=== PATIENT | male | born 1950 | race Caucasian/White ===

== ENCOUNTER 2017-02-17 11:44 | Emergency (ER) | payer BC, OTHER ==
[~2017-02-17] VITALS: Ht 182.9 cm; Wt 93.6 kg
[2017-02-17 11:50] VITALS: TEMP 36.7; Ht 182.9 cm; Wt 93.6 kg
[2017-02-17] MEDS ORDERED: SODIUM CHLORIDE 0.9% 1000ML 1,000 ML IV STA (12:26)
[2017-02-17] MEDS ORDERED: SODIUM CHLORIDE 0.9% 1000ML 1,000 ML IV ONE (12:26)
[2017-02-17] MEDS ORDERED: ASPI81TA28 PO (12:28)
[2017-02-17] MEDS ORDERED: ACT/15 PO (12:28)
[2017-02-17] MEDS ORDERED: GLC500 PO (12:28)
[2017-02-17] MEDS ORDERED: SERT25TA PO (12:28)
[2017-02-17] MEDS ORDERED: LISI-461 PO (12:28)
[2017-02-17] MEDS ORDERED: LPT/40 PO (12:28)
--- NOTE | 2017-02-17 12:32 | EMERGENCY ROOM VISIT NOTE ---
History Report prepared by Celso: Jonas Okeefe Under the Supervision of: Dr. Yfn Soria M.D. First contact with patient: 12:18 Chief Complaint: EYE ASSESSMENT Stated Complaint: DOUBLE VISION,SINUS PRESSURE,NAUSCOUS History of Present Illness The patient is a 66 year old male who presents to the Emergency Room with complaints of constant double vision that started three days ago. He states that he is able to close one eye and see normally. The patient also admits to nausea, vomiting, an intermittent sinus headache, rhinorrhea, and congestion. The patient reports that he also was experiencing an ear pain but it had resolved a couple of days ago. The patient reports that he went to have an eye assessment with an point of care technician in December at [facility]. 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 He states that he has a history of diabetes, which he takes pills for. He states that he checked his blood sugar yesterday which was in the 180s. The patient states that he had lab work done today with [facility] to test for Lyme's disease because his PCP, Dr. Mills, believes he has Lyme's disease. He is accompanied by his who states that he has been taking antibiotics, but has not been able to take his pills due to his vomiting. The patient denies any blood thinners, fevers, chills, shortness of breath, chest pain, abdominal pain, dizziness, numbness, and weakness. Source of History: patient, family, spouse/significant other Onset: three days ago Position: eye (bilateral) Quality: other (double vision) Timing: constant Associated Symptoms: + nausea, + vomiting, No fevers, No chills, No chest pain, No SOB, No abdominal pain, No fatigue, No weakness Review of Systems See HPI for pertinent positives & negatives. A total of 10 systems reviewed and were otherwise negative. Past Medical & Surgical Medical Problems: (1) Diabetes Old medical records were reviewed. Nurse's notes were reviewed and I agree with. Family History Patient reports no known family medical history. Social History Smoking Status: Former Smoker Drug Use: none Marital Status: Housing Status: lives with significant other Occupation Status: retired Current/Historical Medications Scheduled Aspirin (Aspirin Ec), 81 MG PO DAILY Atorvastatin (Lipitor), 40 MG PO DAILY Lisinopril (Zestril), 10 MG PO DAILY Metformin HCl (Metformin HCl), 1,000 MG PO BID Pioglitazone Hcl (Actos), Unknown Dose PO DAILY Sertraline (Zoloft), 75 MG PO HS Allergies Coded Allergies: No Known Allergies (Unverified , 02/17/17) Physical Exam Vital Signs Date Time Temp Pulse Resp B/P (MAP) Pulse Ox O2 Delivery O2 Flow Rate FiO2 02/17/17 14:38 78 18 148/72 99 02/17/17 13:48 88 22 160/84 98 Room Air 02/17/17 12:54 73 20 135/72 96 Room Air 02/17/17 12:26 75 02/17/17 11:50 36.7 93 19 145/77 95 Room Air Physical Exam General: Well developed well nourished non ill appearing middle aged man in no acute distress, breathing comfortably on room air. Normal speech HEENT: Normal cephalic atraumatic. Pupils are equal round and reactive to light. Extraocular movements are intact and moving all directions other the tracking seems slightly asymmetrical. Oropharynx is pink with moist mucous membranes. No swelling of the mouth lips or tongue. Normal tympanic membrane. Neck: Supple with a midline trachea. No meningeal signs or stiffness, no JVD or bruits. No Stridor. Chest: Clear to auscultation bilaterally. No wheezes or rhonchi. No increased work of breathing. Heart: regular rate and rhythm. Abdomen: Soft nontender, nondistended without rebound guarding or rigidity. Extremities: No cyanosis clubbing or edema. No calf tenderness or assymetry Spine/Back. Non tender to palpation. No CVA tenderness Skin: Good turgor without rashes. Neurologic exam: Finger to nose intact. Cranial nerves two through 12 are intact. Motor and sensation are intact and symmetrical throughout. Medical Decision & Procedures ER Provider Diagnostic Interpretation: Radiology results as stated below per my review and radiologist interpretation: CHEST ONE VIEW PORTABLE HISTORY:66 yearsMaleCHEST PAIN COMPARISON: None available. TECHNIQUE: Portable upright AP view of the chest. FINDINGS: The lungs are somewhat hypoinflated which accentuates the size of the cardiac silhouette. There is bronchovascular crowding with hazy subsegmental bibasilar opacities. No pneumothorax or large pleural effusion. The bones are grossly intact. IMPRESSION: Hypoinflation with bronchovascular crowding. Bibasilar opacities suggest atelectasis with pneumonia thought to be less likely. The above report was generated using voice recognition software. It may contain grammatical, syntax or spelling errors. Electronically signed by: Torsten Azevedo M.D. 02/17/2017 12:58 PM Dictated Date/Time: 02/17/2017 12:[address] CT DOSE: HISTORY: Mental status change. Visual change. eval for blurry vision TECHNIQUE: Multiaxial CT images of the head were performed without the use of intravenous contrast. Comparison: None. Findings: Expansile/destructive mass base of the brain on the left possibly originating from the posterior left nasopharynx with destructive changes involving the base of the skull on the left as well as clivus. Exact dimensions are difficult to ascertain based on CT criteria. Transaxial measurements at the base of the CT of the brain approximate 3.5 x 2.0 cm. The remainder of the brain is remarkable for minimal age-related atrophy. The remainder of the skull is considered unremarkable. The calvarium is intact. The ventricles and sulci are within normal limits. There is no mass, hematoma, midline shift, or acute infarct. Impression: 1. 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 2. Neoplastic processes diagnosis of exclusion area 3. Remainder of the brain is negative Electronically signed by: Deandre Robledo M.D. 02/17/2017 1:35 PM Dictated Date/Time: 02/17/2017 1:[address] DOSE: HISTORY: Sinus disease eval for sinus disease TECHNIQUE: Multiaxial CT images of the paranasal sinuses were performed and reformatted in the coronal plane without the use of contrast. COMPARISON: None. Findings: Large mass base of the brain on the left extending into the left sphenoid sinus and posterior nasopharynx on the left. Considerable bony destructive changes are identified involving the clivus as well as medial left mastoid. There appears to be at least a slight degree of impact upon the pontine medullary junction. There is some fragmentation of the osseous structures at the base of the skull on the left. Considerable bony distraction is again noted. Partial invasion to the left sphenoid sinus and left perisellar region are noted. Sinuses otherwise show minimal scattered mucosal thickening. There is minimal hyperplastic changes the nasal turbinates. Orbital margins are intact. IMPRESSION: 1. Large mass base of the skull on the left showing evidence for bony destructive change as well as invasion. 2. Dimensions are approximately 3.0 x 2.5 x 2.8 cm. 3. Extension and is associated bony destructive changes to the medial left mastoid, left inferior sphenoid sinus, and left perisellar region. 4. Additional extension to the region of the clivus with significant bony destructive change of the left lateral component of the clivus 5. Diagnostic considerations must include an aggressive neoplastic process. Other densities are considered less likely. 6. This report was transmitted verbally to Dr. Soria Electronically signed by: Deandre Robledo M.D. 02/17/2017 1:46 PM Dictated Date/Time: 02/17/2017 1:36 PM Laboratory Results 02/17/17 11:55 Red Blood Count 4.44, Mean Corpuscular Volume 87.4, Mean Corpuscular Hemoglobin 28.8, Mean Corpuscular Hemoglobin Concent 33.0, Mean Platelet Volume 10.3, Neutrophils (%) (Auto) 83.4, Lymphocytes (%) (Auto) 10.9, Monocytes (%) (Auto) 5.2, Eosinophils (%) (Auto) 0.1, Basophils (%) (Auto) 0.2, Neutrophils # (Auto) 7.27, Lymphocytes # (Auto) 0.95, Monocytes # (Auto) 0.45, Eosinophils # (Auto) 0.01, Basophils # (Auto) 0.02 02/17/17 11:55 Test 02/17/17 11:55 02/17/17 12:01 02/17/17 12:34 White Blood Count 8.72 K/uL (4.8-10.8) Red Blood Count 4.44 M/uL (4.7-6.1) Hemoglobin 12.8 g/dL (14.0-18.0) Hematocrit 38.8 % (42-52) Mean Corpuscular Volume 87.4 fL (80-100) Mean Corpuscular Hemoglobin 28.8 pg (25-34) Mean Corpuscular Hemoglobin Concent 33.0 g/dl (32-36) Platelet Count 196 K/uL (130-400) Mean Platelet Volume 10.3 fL (7.4-10.4) Neutrophils (%) (Auto) 83.4 % Lymphocytes (%) (Auto) 10.9 % Monocytes (%) (Auto) 5.2 % Eosinophils (%) (Auto) 0.1 % Basophils (%) (Auto) 0.2 % Neutrophils # (Auto) 7.27 K/uL (1.4-6.5) Lymphocytes # (Auto) 0.95 K/uL (1.2-3.4) Monocytes # (Auto) 0.45 K/uL (0.11-0.59) Eosinophils # (Auto) 0.01 K/uL (0-0.5) Basophils # (Auto) 0.02 K/uL (0-0.2) RDW Standard Deviation 45.1 fL (36.4-46.3) RDW Coefficient of Variation 14.0 % (11.5-14.5) Immature Granulocyte % (Auto) 0.2 % Immature Granulocyte # (Auto) 0.02 K/uL (0.00-0.02) Anion Gap 8.0 mmol/L (3-11) Est Creatinine Clear Calc Drug Dose 72.0 ml/min Estimated GFR () 72.6 Estimated GFR (Non- 62.6 BUN/Creatinine Ratio 15.2 (10-20) Calcium Level 9.7 mg/dl (8.5-10.1) Total Bilirubin 0.5 mg/dl (0.2-1) Direct Bilirubin < 0.1 mg/dl (0-0.2) Aspartate Amino Transf (AST/SGOT) 13 U/L (15-37) Alanine Aminotransferase (ALT/SGPT) 26 U/L (12-78) Alkaline Phosphatase 64 U/L (45-117) Total Protein 7.6 gm/dl (6.4-8.2) Albumin 4.3 gm/dl (3.4-5.0) Lipase 213 U/L (73-393) Lyme Disease IgG Antibody NEG (NEG) Lyme Disease IgM Antibody NEG (NEG) Bedside Glucose 206 mg/dl (70-99) Bedside Troponin I < 0.030 ng/ml (0-0.045) Laboratory studies as stated above per my review. Medications Administered Medications (Trade) Dose Ordered Sig/Cristhian Route Start Time Stop Time Status Last Admin Dose Admin Sodium Chloride 1,000 ml @ 999 mls/hr Q1H1M STAT IV 02/17/17 12:26 02/17/17 13:26 DC 02/17/17 12:26 999 MLS/HR Sodium Chloride 1,000 ml @ 150 mls/hr Q6H40M ONCE IV 02/17/17 12:26 02/17/17 19:05 02/17/17 12:53 150 MLS/HR Ondansetron HCl (Zofran Inj) 4 mg NOW STAT IV 02/17/17 14:03 02/17/17 14:04 DC 02/17/17 14:15 4 MG Ondansetron HCl (ZOFRAN ODT 4MG Home Pack) 1 homepack UD ONCE PO 02/17/17 14:15 02/17/17 14:16 DC 02/17/17 14:29 1 HOMEPACK ECG Indication: other (vision issues) Rate (beats per minute): 75 Rhythm: normal sinus Findings: no acute ischemic change, no ectopy Comparison ECG Date: no prior available ED Course 1219: Past medical records reviewed. The patient was evaluated in room A04, and a complete history and physical examination were performed. 1226: Sodium Chloride 1000 ml @ 150 mls/hr IV, Sodium Chloride 1000 ml @ 999 mls /hr IV. 1345: I reevaluated the patient and he is resting comfortably. 1355: I discussed the patient's case with Dr. Sandoval, ENT and Dr. Rodas, [facility]. Dr. Rodas understands the patient's conditions agrees to accept the patient. The patient will be further evaluated. 1403: Zofran Injection 4 mg IV. 1412: I discussed the results and treatment plan with the patient. He agrees to being transferred and would like to be transferred via private vehicle. 1415: Ondansetron HCl 1 homepack PO. Medical Decision Differentials include, but are not limited to; dehydration, intracranial process , infection, sinus disease, electrolyte or metabolic abnormality. Medication Reconciliation: I attest that I have personally reviewed the patient' s current medication list. Blood Pressure Screening: Patient was found to have a slightly elevated blood pressure due to circumstances. I do not believe that the patient requires hypertension monitoring. This patient comes in as described above he has blurry vision in both eyes. Monocular vision in each eye is fine however. He has no neurologic he deficits with exception of some slight abnormal tracking when he moves his eyes horizontally. He has no sinus tenderness or fullness he is non-ill appearing he is nontoxic is nothing chest meningitis or encephalitis. IV access established was given 1 L normal saline bolus she was given Zofran 4 mg IV and seems to be doing much better he has no white count or fever to suggest infection is no acute electrode or metabolic abdomen allergies I did do a CAT scan of the head and sinuses. He has a mass that is in the posterior oropharynx eroding into the bone at the base of the skull. I talked to Dr. 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 Obviously a tissue diagnosis is needed. Given the patient's symptoms and presentation, I talked to the family at length and I feel that he needs to be transferred to tertiary care center where they can do this biopsy and treat him aggressively. They have opted for [facility]. I talked to Dr. Sandoval in ear nose and throat and she recommended sending the patient to the emergency department because depending upon the location of the mass will depend upon which service see the patient gets admitted to likely. I also talked to Dr. Rodas in the emergency department has accepted the patient the patient. The patient strongly desires to be transferred by private vehicle. He's been stable at this is reasonable. His is going to drive him. He feels he would get very carsick in the back of the ambulance and he was the given Zofran prior to leaving as well as a home pack. I sent him with a they have instructions on where to go and will go straight to the emergency department. The patient and his family were happy with plan and was discharged to home. Consults Time Called: 1355 Consulting Physician: Dr. Sandoval ENT and Dr. Rodas, [facility] Returned Call: 1355 I discussed the patient's case with Dr. Sandoval ENT and Dr. Rodas, [facility]. Dr. Rodas understands the patient's conditions agrees to accept the patient. The patient will be further evaluated. Impression Primary Impression: Pharyngeal mass Additional Impression: Double vision Scribe Attestation The scribe's documentation has been prepared under my direction and personally reviewed by me in its entirety. I confirm that the note above accurately reflects all work, treatment, procedures, and medical decision making performed by me. Departure Information Dispostion Discharge/Transfer to [facility] Referrals Rosette Suarez M.D. (MEDICAL) (PCP) Forms HOME CARE DOCUMENTATION FORM, IMPORTANT VISIT INFORMATION, WORK / SCHOOL INSTRUCTIONS Patient Instructions My [facility] Additional Instructions Go straight to [facility] emergency Department. They are expecting you Dr. Rodas has accepted you in the emergency department Additionally Dr. Sandoval from ENT knows that you are calming You do have a mass in the back of the nose/basilar the brain and will need a biopsy and further treatment and evaluation at a tertiary care center. Problem Qualifiers
[2017-02-17 12:37] LABS: BASO % 0.2 %; BASO ABS # 0.02 K/uL (0-0.2); COMPLETE YES; EOS % 0.1 %; HEMATOCRIT 38.8 % (42-52); IG% 0.2 %; LYMPH % 10.9 %; LYMPH ABS # 0.95 K/uL (1.2-3.4); MEAN CELL VOLUME 87.4 fL (80-100); MEAN CORPUSCULAR HEMOGLOBIN 28.8 pg (25-34); MEAN PLATELET VOLUME 10.3 fL (7.4-10.4); MONO % 5.2 %; NEUT % 83.4 %; PLATELET COUNT 196 K/uL (130-400); RED BLOOD COUNT 4.44 M/uL (4.7-6.1); WHITE BLOOD COUNT 8.72 K/uL (4.8-10.8)
[2017-02-17 12:54] LABS: BLOOD UREA NITROGEN 18 mg/dl (7-18); BUN/CREATININE RATIO 15.2 (10-20); CALCIUM 9.7 mg/dl (8.5-10.1); CARBON DIOXIDE 24 mmol/L (21-32); CHLORIDE 105 mmol/L (98-107); GLUCOSE 214 mg/dl (70-99); POTASSIUM 4.9 mmol/L (3.5-5.1); SODIUM 137 mmol/L (136-145)
[2017-02-17 12:57] LABS: ALKALINE PHOSPHATASE 64 U/L (45-117); ALT/SGPT 26 U/L (12-78); AST/SGOT 13 U/L (15-37)
--- NOTE | 2017-02-17 12:59 | DIAGNOSTIC IMAGING REPORT ---
CHEST ONE VIEW PORTABLE HISTORY:66 yearsMaleCHEST PAIN COMPARISON: None available. TECHNIQUE: Portable upright AP view of the chest. FINDINGS: The lungs are somewhat hypoinflated which accentuates the size of the cardiac silhouette. There is bronchovascular crowding with hazy subsegmental bibasilar opacities. No pneumothorax or large pleural effusion. The bones are grossly intact. IMPRESSION: Hypoinflation with bronchovascular crowding. Bibasilar opacities suggest atelectasis with pneumonia thought to be less likely. The above report was generated using voice recognition software. It may contain grammatical, syntax or spelling errors. Electronically signed by: Torsten Azevedo M.D. 02/17/2017 12:58 PM Dictated Date/Time: 02/17/2017 12:52 PM
[2017-02-17 13:26] LABS: LYME DISEASE AB IGG NEG (NEG)
[2017-02-17 13:27] LABS: LYME DISEASE AB IGM NEG (NEG)
--- NOTE | 2017-02-17 13:37 | DIAGNOSTIC IMAGING REPORT ---
HEAD CT NONCONTRAST CT DOSE: HISTORY: Mental status change. Visual change. eval for blurry vision TECHNIQUE: Multiaxial CT images of the head were performed without the use of intravenous contrast. Comparison: None. Findings: Expansile/destructive mass base of the brain on the left possibly originating from the posterior left nasopharynx with destructive changes involving the base of the skull on the left as well as clivus. Exact dimensions are difficult to ascertain based on CT criteria. Transaxial measurements at the base of the CT of the brain approximate 3.5 x 2.0 cm. The remainder of the brain is remarkable for minimal age-related atrophy. The remainder of the skull is considered unremarkable. The calvarium is intact. The ventricles and sulci are within normal limits. There is no mass, hematoma, midline shift, or acute infarct. Impression: 1. 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 2. Neoplastic processes diagnosis of exclusion area 3. Remainder of the brain is negative Electronically signed by: Deandre Robledo M.D. 02/17/2017 1:35 PM Dictated Date/Time: 02/17/2017 1:28 PM
--- NOTE | 2017-02-17 13:47 | DIAGNOSTIC IMAGING REPORT ---
SINUS CT CT DOSE: HISTORY: Sinus disease eval for sinus disease TECHNIQUE: Multiaxial CT images of the paranasal sinuses were performed and reformatted in the coronal plane without the use of contrast. COMPARISON: None. Findings: Large mass base of the brain on the left extending into the left sphenoid sinus and posterior nasopharynx on the left. Considerable bony destructive changes are identified involving the clivus as well as medial left mastoid. There appears to be at least a slight degree of impact upon the pontine medullary junction. There is some fragmentation of the osseous structures at the base of the skull on the left. Considerable bony distraction is again noted. Partial invasion to the left sphenoid sinus and left perisellar region are noted. Sinuses otherwise show minimal scattered mucosal thickening. There is minimal hyperplastic changes the nasal turbinates. Orbital margins are intact. IMPRESSION: 1. Large mass base of the skull on the left showing evidence for bony destructive change as well as invasion. 2. Dimensions are approximately 3.0 x 2.5 x 2.8 cm. 3. Extension and is associated bony destructive changes to the medial left mastoid, left inferior sphenoid sinus, and left perisellar region. 4. Additional extension to the region of the clivus with significant bony destructive change of the left lateral component of the clivus 5. Diagnostic considerations must include an aggressive neoplastic process. Other densities are considered less likely. 6. This report was transmitted verbally to Dr. Soria Electronically signed by: Deandre Robledo M.D. 02/17/2017 1:46 PM Dictated Date/Time: 02/17/2017 1:36 PM
[2017-02-17] MEDS ORDERED: ONDANSETRON INJ 2 MG/ML 2 ML VIAL IV STA (14:03)
[2017-02-17] MEDS ORDERED: ONDANSETRON HOME PACK 4MG OD TAB PO ONE (14:15)
[2017-02-17 14:38] VITALS: BP 148/72; PULSE 78; O2SAT 99
--- NOTE | 2017-02-19 09:30 | EDITING REQUIRED CODING QUERY ---
CQTREATMENT RENDERED WITHOUT A DIAGNOSIS To promote full compliance with coding requirements relating to patient care, physician participation is requested in all cases of computer language coder uncertainty. Please assist us with providing a diagnosis/symptom for the test(s) below: A diagnosis/symptom was not documented on your Order. A valid diagnosis/symptom is required to bill all insurances. Please remember that we are unable to code a diagnosis of rule out, probable, possible, questionable, or suspected. Tests that require a diagnosis: DOS 02/17/17 THIS IS AN ER VISIT ON THE XRAY IT SAYS MASS AT BASE OF SKULL AND OTHER INFORMATION MENTIONS BRAIN OR SKULL YOUR FINAL DIAGNOSIS HAS PHARYNGEAL MASS COULD YOU VERIFY IF IT IS BASE SKULL OR PHARYNGEAL MASS I NEED TO KNOW TO CODE CORRECT PLACE THANK YOU It is both in the phaynx and extends into the base of the skull Provider Signature: Date: Thank you Elisa Dunn [facility] Information Management Once completed, please kindly fax back to [phone] For questions please call [phone]
== END 2017-02-17 14:39 | disposition short-term general hospital (02) ==
LOC: C.EDB 11:47 → C.EDA 14:39
DX: H53.2 Diplopia (principal); R11.0 Nausea; E11.9 Type 2 diabetes mellitus without complications; Z87.891 Personal history of nicotine dependence; Z79.899 Other long term (current) drug therapy; D13.0 Benign neoplasm of esophagus; R22.0 Localized swelling, mass and lump, head

== ENCOUNTER 2017-04-03 05:18 | Emergency (ER) | payer BC ==
[~2017-04-03] VITALS: Ht 185.4 cm; Wt 85.0 kg
[~2017-04-03 05:18] MED LIST: ACT/15 PO; ASPI81TA28 PO; GLC500 PO; LISI-461 PO; LPT/40 PO; SERT25TA PO
[2017-04-03 05:24] VITALS: TEMP 36.7; Ht 185.4 cm; Wt 85.0 kg
[2017-04-03] MEDS ORDERED: OXYMETAZOLINE HCL 0.05% NA SPR 15 ML BTL ONE (05:38)
--- NOTE | 2017-04-03 05:48 | EMERGENCY ROOM VISIT NOTE ---
History Report prepared by Celso: Alfonso Beverly Under the Supervision of: Dr. Rosa Mccoy D.O. First contact with patient: 05:34 Chief Complaint: GI ASSESSMENT Stated Complaint: VOMITING BLOOD History of Present Illness The patient is a 66 year old male who presents to the Emergency Room with complaints of sudden vomiting up blood starting 0450 this morning. The patient had a biopsy done February 19 that went through his left nostril. 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 The patient states that he is on a baby aspirin every day. He states that this is the first time that this has happened since the surgery. Source of History: patient Onset: 0450 this morning Position: other (global) Quality: other (vomiting blood) Timing: other (sudden) Review of Systems See HPI for pertinent positives & negatives. A total of 10 systems reviewed and were otherwise negative. Past Medical & Surgical Medical Problems: (1) Diabetes Family History Patient reports no known family medical history. Social History Smoking Status: Former Smoker Drug Use: none Marital Status: Housing Status: lives with significant other Occupation Status: retired Current/Historical Medications Scheduled Aspirin (Aspirin Ec), 81 MG PO DAILY Atorvastatin (Lipitor), 40 MG PO DAILY Bupropion Hcl (Wellbutrin), 1 TAB PO BID Lisinopril (Zestril), 10 MG PO DAILY Lorazepam (Ativan), 1 MG PO HS Metformin HCl (Metformin HCl), 1,000 MG PO BID Pioglitazone Hcl (Actos), 15 MG PO DAILY Sertraline (Zoloft), 75 MG PO HS Allergies Coded Allergies: No Known Allergies (Unverified , 04/03/17) Physical Exam Vital Signs Date Time Temp Pulse Resp B/P (MAP) Pulse Ox O2 Delivery O2 Flow Rate FiO2 04/03/17 06:48 110 20 157/89 95 04/03/17 05:24 36.7 118 18 156/80 95 Room Air Physical Exam HEENT: Head - normocephalic and atraumatic Pupils are equal, round, and reactive to light. Extraocular eye muscles are intact, and sclera are anicteric. Nose - moist nasal mucosa with bleeding from the left nares, specifically from the septum. Mouth - moist buccal mucosa. Oropharynx is has moderate blood and blood clot noted. Neck: Supple; no Heart: Regular rate and rhythm. Lungs: Clear to auscultation bilaterally with no wheezes, rales, or rhonchi. Medical Decision & Procedures Laboratory Results 04/03/17 05:57 04/03/17 05:57 Test 04/03/17 05:57 Red Blood Count 3.73 M/uL (4.7-6.1) Mean Corpuscular Volume 86.9 fL (80-100) Mean Corpuscular Hemoglobin 28.2 pg (25-34) Mean Corpuscular Hemoglobin Concent 32.4 g/dl (32-36) RDW Standard Deviation 44.5 fL (36.4-46.3) RDW Coefficient of Variation 14.0 % (11.5-14.5) Mean Platelet Volume 9.8 fL (7.4-10.4) Prothrombin Time 11.2 SECONDS (9.0-12.0) Prothromb Time International Ratio 1.0 (0.9-1.1) Activated Partial Thromboplast Time 31.5 SECONDS (21.0-31.0) Partial Thromboplastin Ratio 1.2 Anion Gap 8.0 mmol/L (3-11) Est Creatinine Clear Calc Drug Dose 74.6 ml/min Estimated GFR () 80.6 Estimated GFR (Non- 69.6 BUN/Creatinine Ratio 17.2 (10-20) Calcium Level 9.4 mg/dl (8.5-10.1) Laboratory results per my review. Procedure Afrin [place] [facility] ED Course 0534: Past medical records reviewed. The patient was evaluated in room B11. A complete history and physical exam was performed. Upon entering the room, the patient had epistaxis and he was gagging up blood. 0538: Afrin 0.05% Nasal [place] [facility]. The patient then held pressure. Laboratory studies were drawn as above. 0603: I reevaluated the patient, and he had a very weak gag reflex and when gargling water he wretched, and started bleeding from his nose Again. 0640: I reevaluated the patient, and his bleeding has stopped. I discussed findings and results with him. He verbalized agreement of the treatment plan. He was discharged home. the patient was able to gargle and no longer had blood in the posterior oropharynx. Medical Decision The patient is a 66 year old male who presents to the ED with vomiting up blood. Differential diagnosis includes epistaxis and bleeding biopsy site. Lab results show: White count and hemoglobin 10.5, normal platelet count, glucose 224, normal renal function, normal coags. It seemed that I could easily identify the source of the bleeding as the anterior septum in the left nares. After using Afrin nasal spray and when pressure, the bleeding did stop. He was able to drink without any difficulty. I encouraged the patient to avoid taking his aspirin over the next 2 days. If the bleeding starts again, he was directed to hold pressure as we did here in the ER. The patient's H&H was stable. He was slightly anemic but has a history of anemia. Medication Reconcilliation Current Medication List: was personally reviewed by me Blood Pressure Screening Patient's blood pressure: Elevated blood pressure Blood pressure disposition: Elevated BP felt to be situational Impression Primary Impression: Epistaxis Scribe Attestation The scribe's documentation has been prepared under my direction and personally reviewed by me in its entirety. I confirm that the note above accurately reflects all work, treatment, procedures, and medical decision making performed by me. Departure Information Dispostion Home / Self-Care Referrals Deandre Draper M.D. (PCP) Forms HOME CARE DOCUMENTATION FORM, IMPORTANT VISIT INFORMATION Patient Instructions ED Nosebleed, My [facility] Additional Instructions Rest. Minimize stress and anxiety If bleeding starts agin, use 3 sprays of the afrin and hold pressure for 20 minutes. Use humidifier in the room Alert doctors at [facility] about nosebleeds
[2017-04-03] MEDS ORDERED: BUPR100T13 PO (05:54)
[2017-04-03] MEDS ORDERED: ATV/1 PO (05:54)
[2017-04-03 06:07] LABS: HEMATOCRIT 32.4 % (42-52); MEAN CELL VOLUME 86.9 fL (80-100); MEAN CORPUSCULAR HEMOGLOBIN 28.2 pg (25-34); MEAN CORPUSCULAR HGB CONC 32.4 g/dl (32-36); MEAN PLATELET VOLUME 9.8 fL (7.4-10.4); PLATELET COUNT 343 K/uL (130-400); RED BLOOD COUNT 3.73 M/uL (4.7-6.1); WHITE BLOOD COUNT 10.55 K/uL (4.8-10.8)
[2017-04-03 06:21] LABS: PARTIAL THROMBOPLASTIN RATIO 1.2; PROTHROMBIN TIME (PATIENT) 11.2 SECONDS (9.0-12.0)
[2017-04-03 06:26] LABS: BUN/CREATININE RATIO 17.2 (10-20); CALCIUM 9.4 mg/dl (8.5-10.1); CREATININE 1.1 mg/dl (0.60-1.40); POTASSIUM 4.9 mmol/L (3.5-5.1)
[2017-04-03 06:48] VITALS: BP 157/89; PULSE 110; O2SAT 95
[2017-05-19] MEDS ORDERED: ATV1 SL (15:30)
[2017-05-19] MEDS ORDERED: RXNS5 PO (15:30)
[2017-05-19] MEDS ORDERED: [UNRECOGNIZED DRUG - CODE] PO (15:30)
[2017-05-19] MEDS ORDERED: SCOP1DIS14 TD (15:30)
[2017-05-19] MEDS ORDERED: ATRO1SOL13 SL (15:30)
[2017-05-19] MEDS ORDERED: DRGTP25 TD (15:30)
[2017-05-19] MEDS ORDERED: HYDR1LIQ8 PO (15:30)
== END 2017-04-03 06:51 | disposition home or self-care (01) ==
LOC: C.EDB 05:20
DX: R04.0 Epistaxis (principal); E11.9 Type 2 diabetes mellitus without complications; Z87.891 Personal history of nicotine dependence; Z79.82 Long term (current) use of aspirin; Z79.899 Other long term (current) drug therapy

== ENCOUNTER 2017-04-04 15:50 | Emergency (ER) | payer BC ==
[~2017-04-04] VITALS: Ht 185.4 cm; Wt 82.5 kg
[~2017-04-04 15:50] MED LIST changes: +ATV/1 PO; +BUPR100T13 PO
[2017-04-04 16:02] VITALS: TEMP 36.9; Ht 185.4 cm; Wt 82.5 kg
[2017-04-04] MEDS ORDERED: OXYMETAZOLINE HCL 0.05% NA SPR 15 ML BTL ONE (16:30)
[2017-04-04 17:16] VITALS: BP 154/77; PULSE 100; O2SAT 96
--- NOTE | 2017-04-04 17:55 | EMERGENCY ROOM VISIT NOTE ---
History Report prepared by Celso: Alfonso Beverly Under the Supervision of: Dr. Bethel Haney M.D. First contact with patient: 16:19 Chief Complaint: NOSE BLEED (MINOR) Stated Complaint: NOSE BLEED History of Present Illness The patient is a 66 year old male who presents to the Emergency Room with complaints of intermittent nose bleeds starting yesterday. He states that it is currently only bleeding a little bit. He currently denies any weakness or light headedness. The patient states that he was here yesterday for a nose bleed, and it was controlled, though any time he would cough, sneeze, bend over, or other things it would start bleeding again, and it happened 4 to 5 times. The patient states that he was told to hold it for 20 minutes. The patient states that he takes aspirin, though he did not take it today or yesterday. The patient's states that he is going to have radiation treatment to his skull tomorrow. Source of History: patient, spouse/significant other Onset: yesterday Position: nose Quality: other (bleed) Timing: intermittent Associated Symptoms: No weakness Review of Systems See HPI for pertinent positives & negatives. A total of 6 systems reviewed and were otherwise negative. Past Medical & Surgical Medical Problems: (1) Cancer of kidney (2) Diabetes (3) HTN (hypertension) Family History Cancer Diabetes mellitus FHx: gallbladder disease Hypertension Social History Smoking Status: Former Smoker Drug Use: none Marital Status: Housing Status: lives with significant other Occupation Status: retired Current/Historical Medications Scheduled Aspirin (Aspirin Ec), 81 MG PO DAILY Atorvastatin (Lipitor), 40 MG PO DAILY Bupropion Hcl (Wellbutrin), 1 TAB PO BID Lisinopril (Zestril), 10 MG PO DAILY Lorazepam (Ativan), 1 MG PO HS Metformin HCl (Metformin HCl), 1,000 MG PO BID Pioglitazone Hcl (Actos), 15 MG PO DAILY Sertraline (Zoloft), 75 MG PO HS Allergies Coded Allergies: No Known Allergies (Unverified , 04/04/17) Physical Exam Vital Signs Date Time Temp Pulse Resp B/P (MAP) Pulse Ox O2 Delivery O2 Flow Rate FiO2 04/04/17 17:16 100 16 154/77 96 04/04/17 16:25 104 16 96 Room Air 04/04/17 16:02 36.9 119 20 136/73 92 Room Air Physical Exam Constitutional: Vital signs reviewed. Eyes: Eye patch over the right eye. Pupil is round reactive to light. Conjunctiva is noninjected. ENT: Active bleeding from the left naris. Pharynx is clear without erythema or exudate. Mucous membranes are moist. No bleeding to the back of the throat. Neck supple without meningeal signs. Respiratory: Clear to auscultation bilaterally. Breath sounds are equal bilaterally. Cardiovascular: Regular rate and rhythm. No rubs or gallops. GI: Soft, nondistended and nontender. Bowel sounds are present. Musculoskeletal: No peripheral edema. No lower extremity tenderness. Integumentary: No cyanosis. Neurological: The patient is awake and alert. No focal deficits. Psychiatric: Normal affect. Medical Decision & Procedures Procedure Anterior Nasal Packing Indication: Nose bleed Verbal consent obtained. Risks and benefits were explained with the usual customary discussion. A time out was taken. The left naris was prepped with Afrin. A 4.5-cm nasal balloon was placed in a standard fashion. The patient tolerated this well. Hemostasis was achieved. No complications. ED Course 1625: The patient was evaluated in room C4. A complete history and physical exam was performed. 1630: Afrin 0.05% Nasal [place] 75 sprays [facility]H 1706: I reevaluated the patient, and he was having no bleeding anteriorly or down the back of the throat. He has no pain from the rhino rocket. 1720: The patient was having a little bit of bleeding anteriorly. I inflated the balloon with 1cc of air which stopped the bleeding. I discussed tonight's findings with him. He verbalized agreement of the treatment plan. He was discharged home. Medical Decision This is a 66-year-old male who presents with epistaxis. I did perform a limited focused review of portions of the patient's old chart on the electronic medical record. The patient was here yesterday for vomiting blood. The patient' s hemoglobin was 10.5, and the source of the bleeding was found to be the left naris. Afrin was applied. He was told to hold off on his aspirin, and he was discharged home. I did evaluate the patient as noted above. I did discuss risks and benefits of cautery versus packing versus conservative treatment. After discussion the patient and family member preferred to go packing. I did pack the left nostril with a foreign a half centimeter rapid Rhino without difficulty or complication. I did pretreat him with Afrin after he blew his nose. Hemostasis was achieved. He will follow up with his doctor for removal in 2-3 days. Medication Reconcilliation Current Medication List: was personally reviewed by me Blood Pressure Screening Patient's blood pressure: Elevated blood pressure Blood pressure disposition: Elevated BP felt to be situational Impression Primary Impression: Epistaxis Scribe Attestation The scribe's documentation has been prepared under my direct and personally reviewed by me in its entirety. I confirm that the note above accurately reflects all work, treatment, procedures, and medical decision making performed by me. Departure Information Dispostion Home / Self-Care Referrals Deandre Draper M.D. (PCP) Forms HOME CARE DOCUMENTATION FORM, IMPORTANT VISIT INFORMATION, WORK / SCHOOL INSTRUCTIONS Patient Instructions My [facility] Additional Instructions You have been examined and treated today on an emergency basis only. This is not a substitute for, or an effort to provide, complete comprehensive medical care. It is impossible to recognize and treat all injuries or illnesses in a single emergency department visit. It is therefore important that you follow up closely with your physician. Call as soon as possible for an appointment. Return for worsening symptoms or if you develop fever, vomiting, or any other concerning symptoms. Your packing needs to be removed in 2-3 days.
[2017-05-19] MEDS ORDERED: [UNRECOGNIZED DRUG - CODE] PO (15:30)
[2017-05-19] MEDS ORDERED: RXNS5 PO (15:30)
[2017-05-19] MEDS ORDERED: SCOP1DIS14 TD (15:30)
[2017-05-19] MEDS ORDERED: DRGTP25 TD (15:30)
[2017-05-19] MEDS ORDERED: HYDR1LIQ8 PO (15:30)
[2017-05-19] MEDS ORDERED: ATV1 SL (15:30)
[2017-05-19] MEDS ORDERED: ATRO1SOL13 SL (15:30)
== END 2017-04-04 17:17 | disposition home or self-care (01) ==
LOC: C.EDB 15:51 → C.EDC 17:17
DX: R04.0 Epistaxis (principal); Z85.528 Personal history of other malignant neoplasm of kidney; E11.9 Type 2 diabetes mellitus without complications; I10 Essential (primary) hypertension; Z80.9 Family history of malignant neoplasm, unspecified; Z83.3 Family history of diabetes mellitus; Z83.79 Family history of other diseases of the digestive system; Z82.49 Family history of ischemic heart disease and other diseases of the circulatory system; Z87.891 Personal history of nicotine dependence; Z79.82 Long term (current) use of aspirin; Z79.899 Other long term (current) drug therapy

== ENCOUNTER 2017-04-24 16:16 | Inpatient (IN) | payer BC, OTHER ==
[~2017-04-24] VITALS: Ht 182.9 cm; Wt 78.8 kg
[2017-04-24] MEDS ORDERED: ONDANSETRON INJ 2 MG/ML 2 ML VIAL IV STA (16:37)
[2017-04-24] MEDS ORDERED: SODIUM CHLORIDE 0.9% 1000ML 1,000 ML IV STA (16:37)
[2017-04-24] MEDS ORDERED: SODIUM CHLORIDE 0.9% 1000ML 1,000 ML IV ONE (16:37)
--- NOTE | 2017-04-24 16:38 | EMERGENCY ROOM VISIT NOTE ---
History Report prepared by Celso: Irving Philip Under the Supervision of: Dr. Yfn Soria M.D. First contact with patient: 16:26 Chief Complaint: VOMITING Stated Complaint: RADIATION TREATMENT MON,VERY SICK,MOUTH BRANDON History of Present Illness The patient is a 66 year old male who presents to the Emergency Room with complaints of intermittent vomiting that began 5 days ago. He has had multiple episodes today. 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 He finished radiation for his brain tumor five days ago, which he received 10 days worth at [facility]. Since then, he has been experiencing nausea, weakness, and an inability to eat or drink. He notes that his soft palate was burned from the radiation. He has been trying to take Zofran, but has not been able to keep it down. They called the on -call [place] doctor who recommended that he comes to the ER to be evaluated. He denies any fevers, recent injuries/trauma, chest pain, shortness of breath, abdominal pain, back pain, or neck pain. Source of History: patient Onset: 5 days ago Position: other (GI) Symptom Intensity: Multiple Episodes Quality: other (Vomiting) Timing: intermittent Associated Symptoms: + nausea, + weakness, No fevers, No neck pain, No chest pain, No SOB, No abdominal pain, No back pain Note: He notes that he has been unable to eat or drink. Review of Systems See HPI for pertinent positives & negatives. A total of 10 systems reviewed and were otherwise negative. Past Medical & Surgical Medical Problems: (1) Cancer of kidney (2) Diabetes (3) HTN (hypertension) (4) Hyperkalemia Old medical records were reviewed. Nurse's notes were reviewed and I agree with. Family History Cancer Diabetes mellitus FHx: gallbladder disease Hypertension Social History Smoking Status: Former Smoker Smokeless Tobacco Use: No Drug Use: none Marital Status: Housing Status: lives with significant other Occupation Status: retired Current/Historical Medications Scheduled Aspirin (Aspirin Ec), 81 MG PO DAILY Atorvastatin (Lipitor), 40 MG PO DAILY Bupropion Hcl (Bupropion Hcl Er), 100 MG PO BID Insulin Glargine (Lantus), 12 UNITS SC QPM Lisinopril (Lisinopril), 20 MG PO DAILY Lorazepam (Ativan), 1 MG PO HS Metformin HCl (Metformin HCl), 1,000 MG PO BID Sertraline Hcl (Zoloft), 300 MG PO DAILY Scheduled PRN Ondansetron Odt (Zofran Odt), 8 MG SL Q8 PRN for Nausea Allergies Coded Allergies: No Known Allergies (Unverified , 04/24/17) Physical Exam Vital Signs Date Time Temp Pulse Resp B/P (MAP) Pulse Ox O2 Delivery O2 Flow Rate FiO2 04/24/17 17:30 80 17 123/61 96 Room Air 04/24/17 17:10 81 04/24/17 16:45 86 18 130/67 96 Room Air 04/24/17 16:19 36.4 113 16 116/73 95 Room Air Physical Exam General: Chronically ill appearing older male, in no acute distress, breathing comfortably on room air. Normal speech HEENT: Normal cephalic atraumatic. Pupils are equal round and reactive to light. Extraocular movements are intact. Patch on the right eye. Oropharynx has radiation brandon to the soft palate. No swelling of the mouth lips or tongue. Neck: Supple with a midline trachea. No meningeal signs or stiffness, no JVD or bruits. No Stridor. Chest: Clear to auscultation bilaterally. No wheezes or rhonchi. No increased work of breathing. Heart: regular rate and rhythm. Abdomen: Soft nontender, nondistended without rebound guarding or rigidity. Extremities: No cyanosis clubbing or edema. No calf tenderness or assymetry Spine/Back. Non tender to palpation. No CVA tenderness Skin: Good turgor without rashes. Neurologic exam: Cranial nerves two through 12 are intact. Motor and sensation are intact and symmetrical throughout. Medical Decision & Procedures Laboratory Results 04/24/17 16:40 Red Blood Count 4.22, Mean Corpuscular Volume 86.5, Mean Corpuscular Hemoglobin 27.7, Mean Corpuscular Hemoglobin Concent 32.1, Mean Platelet Volume 9.8, Neutrophils (%) (Auto) 82.7, Lymphocytes (%) (Auto) 8.7, Monocytes (%) (Auto) 7.7, Eosinophils (%) (Auto) 0.1, Basophils (%) (Auto) 0.1, Neutrophils # (Auto) 7.47, Lymphocytes # (Auto) 0.79, Monocytes # (Auto) 0.70, Eosinophils # (Auto) 0.01, Basophils # (Auto) 0.01 04/24/17 16:40 Test 04/24/17 16:40 White Blood Count 9.04 K/uL (4.8-10.8) Red Blood Count 4.22 M/uL (4.7-6.1) Hemoglobin 11.7 g/dL (14.0-18.0) Hematocrit 36.5 % (42-52) Mean Corpuscular Volume 86.5 fL (80-100) Mean Corpuscular Hemoglobin 27.7 pg (25-34) Mean Corpuscular Hemoglobin Concent 32.1 g/dl (32-36) Platelet Count 274 K/uL (130-400) Mean Platelet Volume 9.8 fL (7.4-10.4) Neutrophils (%) (Auto) 82.7 % Lymphocytes (%) (Auto) 8.7 % Monocytes (%) (Auto) 7.7 % Eosinophils (%) (Auto) 0.1 % Basophils (%) (Auto) 0.1 % Neutrophils # (Auto) 7.47 K/uL (1.4-6.5) Lymphocytes # (Auto) 0.79 K/uL (1.2-3.4) Monocytes # (Auto) 0.70 K/uL (0.11-0.59) Eosinophils # (Auto) 0.01 K/uL (0-0.5) Basophils # (Auto) 0.01 K/uL (0-0.2) RDW Standard Deviation 48.3 fL (36.4-46.3) RDW Coefficient of Variation 15.3 % (11.5-14.5) Immature Granulocyte % (Auto) 0.7 % Immature Granulocyte # (Auto) 0.06 K/uL (0.00-0.02) Anion Gap 8.0 mmol/L (3-11) Est Creatinine Clear Calc Drug Dose 43.5 ml/min Estimated GFR () 44.5 Estimated GFR (Non- 38.4 BUN/Creatinine Ratio 35.3 (10-20) Calcium Level 9.9 mg/dl (8.5-10.1) Total Bilirubin 0.5 mg/dl (0.2-1) Direct Bilirubin 0.1 mg/dl (0-0.2) Aspartate Amino Transf (AST/SGOT) 9 U/L (15-37) Alanine Aminotransferase (ALT/SGPT) 17 U/L (12-78) Alkaline Phosphatase 83 U/L (45-117) Total Protein 7.5 gm/dl (6.4-8.2) Albumin 3.4 gm/dl (3.4-5.0) Lipase 425 U/L (73-393) Laboratory studies as stated above per my review. Medications Administered Medications (Trade) Dose Ordered Sig/Cristhian Route Start Time Stop Time Status Last Admin Dose Admin Sodium Chloride 1,000 ml @ 999 mls/hr Q1H1M STAT IV 04/24/17 16:37 04/24/17 17:37 DC 04/24/17 16:47 999 MLS/HR Sodium Chloride 1,000 ml @ 200 mls/hr Q5H ONCE IV 04/24/17 16:37 04/24/17 21:36 04/24/17 16:47 200 MLS/HR Ondansetron HCl (Zofran Inj) 4 mg NOW STAT IV 04/24/17 16:37 04/24/17 16:38 DC 04/24/17 16:47 4 MG ECG Indication: vomiting Rate (beats per minute): 76 Rhythm: normal sinus Findings: no acute ischemic change, no ectopy, other (No peaked T-waves) Comparison ECG Date: February 17, 2017 Change: no significant change ED Course 1626: Past medical records reviewed. The patient was evaluated in room A10, and a complete history and physical examination were performed. 1637: Ordered Zofran Inj 4 mg IV, Sodium Chloride 1000 ml @ 200 mls/hr IV, Sodium Chloride 1000 ml @ 999 mls/hr IV 1751: The patient feels significantly better at this time. 1802: Upon reevaluation, the patient is resting. I discussed the results and treatment plan with the patient. He verbalized agreement of the treatment plan. The patient will be evaluated by Dr. Dee - Hospitalist, for further management. Medical Decision Differentials include, but are not limited to; dehydration, infection, and electrolyte or metabolic abnormality. This patient comes in as described above. 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 He's been receiving radiation to the palate. He has had brandon and has not been drinking or eating he looks dehydrated on exam. IV access established was given a 1 liter IV normal saline bolus and 4 mg IV Zofran and he feels significantly better. I did do an EKG. there is nothing to suggest acute coronary syndrome or arrhythmia. His T waves are not peaked potassium is mildly to moderately elevated at 6.1. Most likely this is from his renal insufficiency from dehydration and he is making urine. With hydration the potassium should come down. I do think he needs to be admitted for observed for further treatment and evaluation and hydration. Consult the [facility] hospitalist to see him in the ER for these measures. Medication Reconcilliation Current Medication List: was personally reviewed by me Blood Pressure Screening Patient's blood pressure: Normal blood pressure Blood pressure disposition: Did not require urgent referral Consults Time Called: 1800 Consulting Physician: Dr. Dee - Hospitalist Returned Call: [phone] Discussed the patient's case. The patient will be evaluated for further management. Impression Primary Impression: Dehydration Additional Impressions: Hyperkalemia Radiation adverse effect Scribe Attestation The scribe's documentation has been prepared under my direction and personally reviewed by me in its entirety. I confirm that the note above accurately reflects all work, treatment, procedures, and medical decision making performed by me. Departure Information Dispostion Being Evaluated By Hospitalist Referrals Deandre Draper M.D. (PCP) Patient Instructions My [facility] Problem Qualifiers
[2017-04-24] MEDS ORDERED: LSN20 PO (16:44)
[2017-04-24] MEDS ORDERED: INSDGI SC (16:44)
[2017-04-24] MEDS ORDERED: ONDA8TAB62 SL (16:44)
[2017-04-24] MEDS ORDERED: SERT1TAB68 PO (16:44)
[2017-04-24] MEDS ORDERED: BUPR-266 PO (16:44)
[2017-04-24 16:53] LABS: HEMATOCRIT 36.5 % (42-52); MEAN CELL VOLUME 86.5 fL (80-100); MEAN CORPUSCULAR HEMOGLOBIN 27.7 pg (25-34); MEAN CORPUSCULAR HGB CONC 32.1 g/dl (32-36); MEAN PLATELET VOLUME 9.8 fL (7.4-10.4); PLATELET COUNT 274 K/uL (130-400); RED BLOOD COUNT 4.22 M/uL (4.7-6.1); WHITE BLOOD COUNT 9.04 K/uL (4.8-10.8)
[2017-04-24 17:15] LABS: BASO % 0.1 %; BASO ABS # 0.01 K/uL (0-0.2); COMPLETE YES; EOS % 0.1 %; IG% 0.7 %; LYMPH % 8.7 %; LYMPH ABS # 0.79 K/uL (1.2-3.4); MONO % 7.7 %; NEUT % 82.7 %
[2017-04-24 17:23] LABS: BUN/CREATININE RATIO 35.3 (10-20); CALCIUM 9.9 mg/dl (8.5-10.1); CREATININE 1.8 mg/dl (0.60-1.40); POTASSIUM 6.1 mmol/L (3.5-5.1)
--- NOTE | 2017-04-24 18:59 | History and Physical ---
History & Physical Date & Time of Service: Apr 24, 2017 at 18:59 Chief Complaint: Radiation Treatment Mon,Very Sick,Mouth Medeiros Primary Care Physician: Deandre Draper M.D. 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 Pt said that the vomiting has getting worst. she said that she has multiple episodes. Pt said that the nausea and vomiting seems to start about the same time when he started radiation therapy. But the vomiting has gotten worst in the last few days. Pt said that he cannot keep anything in his stomach. He said that he has not been eating. He said that he feels weak and tired. He called his radiation oncologist that advised him to go to the ER for eval. Denies any chest pain, palpitation, dizziness, fever and SOB. Past Medical/Surgical History DM type 2 Metastasis left renal carcinoma Anxiety Depression HTN Nasopharyngeal mass Family History Cancer Diabetes mellitus FHx: gallbladder disease Hypertension Social History Smoking Status: Former Smoker Smokeless Tobacco Use: No Drug Use: none Marital Status: Occupational Status: retired Multi-Drug Resistant Organisms History of MDRO: No Allergies Coded Allergies: No Known Allergies (Unverified , 04/24/17) Home Medications Scheduled Aspirin (Aspirin Ec), 81 MG PO DAILY Atorvastatin (Lipitor), 40 MG PO DAILY Bupropion Hcl (Bupropion Hcl Er), 100 MG PO BID Dexamethasone (Decadron), 4 TAB PO UD Insulin Glargine (Lantus), 12 UNITS SC QPM Lisinopril (Lisinopril), 20 MG PO DAILY Lorazepam (Ativan), 1 MG PO HS Metformin HCl (Metformin HCl), 1,000 MG PO BID Sertraline Hcl (Zoloft), 300 MG PO DAILY Scheduled PRN Ondansetron Odt (Zofran Odt), 8 MG SL Q8 PRN for Nausea Review of Systems Constitutional: + weakness, + fatigue, No fever Eyes: + diplopia ENT: + problem reported (decrease hearing frunction) Respiratory: No cough, No shortness of breath, No dyspnea at rest Cardiovascular: No chest pain, No palpitations Abdomen: + nausea, + vomiting Musculoskeletal: No calf pain Genitourinary - Male: No dysuria, No urinary frequency Neurologic: + weakness, No paralysis Psychiatric: No substance abuse Endocrine: + fatigue, No excessive thirst Hematologic / Lymphatic: No night sweats Integumentary: No rash, No itch Allergic / Immunologic: No hives Physical Exam Vital Signs Date Time Temp Pulse Resp B/P (MAP) Pulse Ox O2 Delivery O2 Flow Rate FiO2 04/24/17 17:30 80 17 123/61 96 Room Air 04/24/17 17:10 81 04/24/17 16:45 86 18 130/67 96 Room Air 04/24/17 16:19 36.4 113 16 116/73 95 Room Air General Appearance: WD/WN, no apparent distress Head: normocephalic, atraumatic Eyes: PERRL, EOMI, + pertinent finding (patch on the right eyes) ENT: + pertinent finding (decrease hearing function) Neck: supple, no JVD Respiratory/Chest: no respiratory distress, no accessory muscle use Cardiovascular: no JVD, no murmur Abdomen/GI: normal bowel sounds, non tender, soft Back: no CVA tenderness Extremities/Musculoskelatal: no calf tenderness Neurologic/Psych: normal mood/affect, oriented x 3 Skin: normal color, no rash Diagnostics Laboratory Results Results Past 24 Hours Test 04/24/17 16:40 Range/Units White Blood Count 9.04 4.8-10.8 K/uL Red Blood Count 4.22 4.7-6.1 M/uL Hemoglobin 11.7 14.0-18.0 g/dL Hematocrit 36.5 42-52 % Mean Corpuscular Volume 86.5 80-100 fL Mean Corpuscular Hemoglobin 27.7 25-34 pg Mean Corpuscular Hemoglobin Concent 32.1 32-36 g/dl Platelet Count 274 130-400 K/uL Mean Platelet Volume 9.8 7.4-10.4 fL Neutrophils (%) (Auto) 82.7 % Lymphocytes (%) (Auto) 8.7 % Monocytes (%) (Auto) 7.7 % Eosinophils (%) (Auto) 0.1 % Basophils (%) (Auto) 0.1 % Neutrophils # (Auto) 7.47 1.4-6.5 K/uL Lymphocytes # (Auto) 0.79 1.2-3.4 K/uL Monocytes # (Auto) 0.70 0.11-0.59 K/uL Eosinophils # (Auto) 0.01 0-0.5 K/uL Basophils # (Auto) 0.01 0-0.2 K/uL RDW Standard Deviation 48.3 36.4-46.3 fL RDW Coefficient of Variation 15.3 11.5-14.5 % Immature Granulocyte % (Auto) 0.7 % Immature Granulocyte # (Auto) 0.06 0.00-0.02 K/uL Sodium Level 132 136-145 mmol/L Potassium Level 6.1 3.5-5.1 mmol/L Chloride Level 104 98-107 mmol/L Carbon Dioxide Level 20 21-32 mmol/L Anion Gap 8.0 3-11 mmol/L Blood Urea Nitrogen 64 7-18 mg/dl Creatinine 1.80 0.60-1.40 mg/dl Est Creatinine Clear Calc Drug Dose 43.5 ml/min Estimated GFR () 44.5 Estimated GFR (Non- 38.4 BUN/Creatinine Ratio 35.3 10-20 Random Glucose 190 70-99 mg/dl Calcium Level 9.9 8.5-10.1 mg/dl Total Bilirubin 0.5 0.2-1 mg/dl Direct Bilirubin 0.1 0-0.2 mg/dl Aspartate Amino Transf (AST/SGOT) 9 15-37 U/L Alanine Aminotransferase (ALT/SGPT) 17 12-78 U/L Alkaline Phosphatase 83 45-117 U/L Total Protein 7.5 6.4-8.2 gm/dl Albumin 3.4 3.4-5.0 gm/dl Lipase 425 73-393 U/L Diagnostic Radiology HEAD WITHOUT CONTRAST (CT) CLINICAL HISTORY: 66 years-old Male presenting with ch, nausea, vomiting, just finished 10 days of radiation, known mass, double vision in the right I, headache at the skull base. TECHNIQUE: Multidetector CT imaging of the head was performed without the use of intravenous contrast. IV contrast: None. A dose lowering technique was used consistent with the principles of ALARA (as low as reasonably achievable). COMPARISON: 02/17/2017. CT DOSE (mGy.cm): The estimated cumulative dose is 614.27 mGy.cm. FINDINGS: [employer] Tech topogram: Unremarkable. Ventricles and sulci normal in size. Brain parenchyma normal in appearance with preserved martell-white differentiation. No mass effect or midline shift. No hemorrhage or acute territorial infarct. No extra-axial fluid collection. Interval development of mild left maxillary mucosal thickening. Aerated secretions in the left nasopharynx and minimally in the left anterior ethmoid air cells. 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 There is also a greater degree of epidural extension along the left anterior aspect of the medulla without significant underlying mass effect. There is also significantly greater extension into the sella. IMPRESSION: 1. Significant interval increase in size of the destructive skull base mass with complete obstruction of the visualized portion of the nasopharynx. Resulting aerated secretions in the nasopharynx with mild left maxillary mucosal thickening. Acute sinusitis cannot be excluded. Significantly greater epidural extension at the brainstem and invasion of the sella. The full extent would be better characterized with noncontrast MR brain. Despite the given history of radiation, these findings are most consistent with progression of disease in comparison to prior CT from February 25, 2017. 2. No other acute intracranial pathology. Electronically signed by: Ronald Jenkins M.D. 04/25/2017 6:53 AM Dictated Date/Time: 04/25/2017 6:47 AM Impression Assessment and Plan Nausea/Vomiting Related to Radiation therapy side effect Received 2 L IVF Continue IVF, Zofran Hyperkalemia K on admission 6.1 related to dehydration Will give IVF Kayexalate, calcium gluconate, insulin will repeat BMP in 6 hrs EKG showed no significant changes compare to prior EKG Will monitor in telemetry Acute Kidney failure Creatine on admission 2 Continue IVF hold metformin and lisinopril avoid nephrotoxic agents continue monitor BMP Anxiety/Depression continue Ativan and Wellbutrin Stable Left renal carcinoma Met to the brain Undergoing radiation therapy follow with oncology at [place] DM Type 2 last hba1c 7.3 Will hold metformin Will decrease lantus to half since pt has not been tolerated food On insulin coverage DVT px on heparin subq Code status Full no mech ventilation Level of Care Telemetry Resuscitation Status FULL NO MECH VENTILATION VTE Prophylaxis VTE Risk Assessment Done? Y/N: Yes Risk Level: Moderate Given or contraindicated: Unfractionated heparin SQ
[2017-04-24] MEDS ORDERED: ACETAMINOPHEN 500 MG TAB PO PRN (19:00)
[2017-04-24] MEDS ORDERED: IV FLUIDS COMPLETED PRN (19:00)
[2017-04-24] MEDS ORDERED: CALCIUM GLUCONATE 10% 1,000 MG in SODIUM CHLORIDE 0.9% 50ML 50 ML IV STA (19:03)
[2017-04-24] MEDS ORDERED: LORAZEPAM 0.5 MG TAB PO PRN (19:15)
[2017-04-24] MEDS ORDERED: DEXTROSE 50% 50 ML SYR IV ONE (19:15)
[2017-04-24] MEDS ORDERED: INSULIN HUMAN REGULAR PER UNIT 10 UNITS in SYRINGE 9.9 ML IV ONE (19:15)
[2017-04-24] MEDS ORDERED: SODIUM POLYST. SULF SUSP 15G/60ML PO STA (19:41)
[2017-04-24] MEDS ORDERED: INSULIN HUMAN REGULAR PER UNIT 10 UNITS in SYRINGE 9.9 ML IV SCH (19:45)
[2017-04-24] MEDS ORDERED: DEXTROSE 50% 50 ML SYR IV SCH (19:45)
[2017-04-24] MEDS ORDERED: INSULIN GLARGINE SOLOSTAR 100 UNITS/ML 3 ML PEN SC ONE (21:00)
[2017-04-24] MEDS ORDERED: GLUCOSE 10 TABS/TUBE PO PRN (21:00)
[2017-04-24] MEDS ORDERED: GLUCAGON FOR INJ 1 MG VIAL SQ PRN (21:00)
[2017-04-24] MEDS ORDERED: GLUCOSE 40% GEL 15 GM TUBE PO PRN (21:00)
[2017-04-24] MEDS ORDERED: DEXTROSE 50% 50 ML SYR IV PRN (21:00)
[2017-04-24 21:30] VITALS: BP 137/68; PULSE 108; TEMP 36.7; O2SAT 98; Ht 182.9 cm; Wt 78.8 kg
[2017-04-24] MEDS: SODIUM CHLORIDE 0.9% 1000ML 1,000 ML IV SCH (21:37)
[2017-04-24] MEDS: ONDANSETRON INJ 2 MG/ML 2 ML VIAL IV PRN (21:49)
[2017-04-24] MEDS ORDERED: HEPARIN SOD 5000 UNIT/0.5 ML CARP SQ SCH (22:00)
[2017-04-24 23:30] LABS: BUN/CREATININE RATIO 36.4 (10-20); CALCIUM 9.5 mg/dl (8.5-10.1); CREATININE 1.5 mg/dl (0.60-1.40); MAGNESIUM 2.1 mg/dl (1.8-2.4); POTASSIUM 6.6 mmol/L (3.5-5.1)
[2017-04-24] MEDS: BuPROPion SR 100 MG TABCR PO SCH (23:30)
[2017-04-24 23:48] VITALS: BP 134/74; PULSE 92; TEMP 36.7; O2SAT 93
[2017-04-25] MEDS ORDERED: INSULIN HUMAN REGULAR PER UNIT 10 UNITS in SYRINGE 0 ML IV STA ×2 (00:08→03:53)
[2017-04-25] MEDS ORDERED: DEXTROSE 50% 50 ML SYR IV ONE ×2 (00:15→04:00)
[2017-04-25] MEDS ORDERED: CALCIUM GLUCONATE 10% 1,000 MG in SODIUM CHLORIDE 0.9% 50ML 50 ML IV STA (00:28)
[2017-04-25] MEDS ORDERED: SODIUM POLYST. SULF SUSP 15G/60ML PO STA ×2 (00:29→09:45)
[2017-04-25] MEDS ORDERED: DEXTROSE 50% 50 ML SYR IV SCH ×2 (00:30→04:15)
[2017-04-25] MEDS ORDERED: INSULIN HUMAN REGULAR PER UNIT 10 UNITS in SYRINGE 9.9 ML IV SCH ×2 (00:35→04:20)
[2017-04-25] MEDS ORDERED: TRAMADOL HCL 50 MG TAB PO PRN (01:15)
[2017-04-25] MEDS ORDERED: LORAZEPAM 0.5 MG TAB PO PRN (01:30)
[2017-04-25] MEDS ORDERED: HYDROmorphone INJ 0.5 MG/0.5 ML SYR ONE (01:33)
[2017-04-25 03:22] LABS: BASO % 0.1 %; BASO ABS # 0.01 K/uL (0-0.2); COMPLETE YES; EOS % 0.1 %; IG% 0.7 %; LYMPH % 6.8 %; LYMPH ABS # 0.48 K/uL (1.2-3.4); MEAN CELL VOLUME 85.9 fL (80-100); MEAN CORPUSCULAR HEMOGLOBIN 28.3 pg (25-34); MEAN CORPUSCULAR HGB CONC 32.9 g/dl (32-36); MEAN PLATELET VOLUME 9.3 fL (7.4-10.4); MONO % 7.5 %; NEUT % 84.8 %; PLATELET COUNT 190 K/uL (130-400); RED BLOOD COUNT 3.61 M/uL (4.7-6.1); WHITE BLOOD COUNT 7.11 K/uL (4.8-10.8)
[2017-04-25 03:43] LABS: CALCIUM 9.4 mg/dl (8.5-10.1); CREATININE 1.4 mg/dl (0.60-1.40); MAGNESIUM 2.1 mg/dl (1.8-2.4); POTASSIUM 5.7 mmol/L (3.5-5.1)
[2017-04-25 04:55] VITALS: BP 145/63; PULSE 75; TEMP 36.9; O2SAT 97
[2017-04-25] MEDS: OXYCODONE/ACETAMINOPHEN 5-325 TAB PO PRN ×3 (05:14→19:23)
--- NOTE | 2017-04-25 06:55 | DIAGNOSTIC IMAGING REPORT ---
HEAD WITHOUT CONTRAST (CT) CLINICAL HISTORY: 66 years-old Male presenting with ch, nausea, vomiting, just finished 10 days of radiation, known mass, double vision in the right I, headache at the skull base. TECHNIQUE: Multidetector CT imaging of the head was performed without the use of intravenous contrast. IV contrast: None. A dose lowering technique was used consistent with the principles of ALARA (as low as reasonably achievable). COMPARISON: 02/17/2017. CT DOSE (mGy.cm): The estimated cumulative dose is 614.27 mGy.cm. FINDINGS: [employer] topogram: Unremarkable. Ventricles and sulci normal in size. Brain parenchyma normal in appearance with preserved martell-white differentiation. No mass effect or midline shift. No hemorrhage or acute territorial infarct. No extra-axial fluid collection. Interval development of mild left maxillary mucosal thickening. Aerated secretions in the left nasopharynx and minimally in the left anterior ethmoid air cells. 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 There is also a greater degree of epidural extension along the left anterior aspect of the medulla without significant underlying mass effect. There is also significantly greater extension into the sella. IMPRESSION: 1. Significant interval increase in size of the destructive skull base mass with complete obstruction of the visualized portion of the nasopharynx. Resulting aerated secretions in the nasopharynx with mild left maxillary mucosal thickening. Acute sinusitis cannot be excluded. Significantly greater epidural extension at the brainstem and invasion of the sella. The full extent would be better characterized with noncontrast MR brain. Despite the given history of radiation, these findings are most consistent with progression of disease in comparison to prior CT from February 25, 2017. 2. No other acute intracranial pathology. Electronically signed by: Ronald Jenkins M.D. 04/25/2017 6:53 AM Dictated Date/Time: 04/25/2017 6:47 AM
[2017-04-25] MEDS: ONDANSETRON INJ 2 MG/ML 2 ML VIAL IV PRN ×2 (07:36→19:15)
[2017-04-25] MEDS: HYDROmorphone INJ 0.5 MG/0.5 ML SYR IV PRN ×3 (07:36→22:59)
[2017-04-25] MEDS: SODIUM CHLORIDE 0.9% 1000ML 1,000 ML IV SCH ×2 (07:39→16:45)
[2017-04-25] MEDS: SERTRALINE HCL 100 MG TAB PO SCH (07:42)
[2017-04-25] MEDS: ATORVASTATIN 20 MG TAB PO SCH (07:43)
[2017-04-25] MEDS: BuPROPion SR 100 MG TABCR PO SCH ×2 (07:43→21:36)
[2017-04-25] MEDS: ASPIRIN 81 MG ECTAB PO SCH (07:43)
[2017-04-25 07:48] VITALS: BP 148/62; PULSE 75; TEMP 36.8; O2SAT 95
[2017-04-25] MEDS ORDERED: GLUCOSE 10 TABS/TUBE PO PRN (08:15)
[2017-04-25] MEDS ORDERED: GLUCOSE 40% GEL 15 GM TUBE PO PRN (08:15)
[2017-04-25] MEDS ORDERED: GLUCAGON FOR INJ 1 MG VIAL SQ PRN (08:15)
[2017-04-25] MEDS ORDERED: DEXTROSE 50% 50 ML SYR IV PRN (08:15)
[2017-04-25] MEDS: PROMETHAZINE HCL INJ 12.5 MG in SODIUM CHLORIDE 0.9% 50ML 50 ML IV PRN ×2 (10:16→16:40)
[2017-04-25] MEDS ORDERED: NURSING VERBAL MED ORDER ONE (10:45)
[2017-04-25] MEDS: INSULIN ASPART 100 UNITS/ML 3 ML PEN SC SCH ×3 (11:00→21:40)
[2017-04-25] MEDS ORDERED: D5W AND NSS 1,000 ML IV SCH (11:15)
[2017-04-25 11:23] VITALS: BP 159/70; PULSE 70; TEMP 36.4; O2SAT 96
--- NOTE | 2017-04-25 11:41 | Progress Note ---
Medicine Progress Note Date & Time of Visit: Apr 25, 2017 at 11:32. Subjective Pt was seen and examined lying in bed with no distress pt said that he was up last night continue vomiting trying to rest now denies any chest pain, palpitation, dizziness and sob Objective Last 8 Hrs Date Time Temp Pulse Resp B/P (MAP) Pulse Ox O2 Delivery O2 Flow Rate FiO2 04/25/17 11:23 36.4 70 16 159/70 (99) 96 Room Air 04/25/17 08:00 Room Air 04/25/17 07:48 36.8 75 16 148/62 (90) 95 Room Air 04/25/17 04:55 36.9 75 17 145/63 (90) 97 Room Air 04/25/17 04:00 Room Air Physical Exam: General- No acute distress Head- atraumatic Eyes- PERRL, Right eye patch ENT- oropharynx clear Neck- supple, no JVD Lungs- No wheezing Heart- regular rhythm; no murmur Abdomen- normal bowel sounds, soft Extremities- no calf tenderness Neuro- alert, oriented, PERRL, EOMI Skin- warm & dry Laboratory Results: Last 24 Hours Test 04/24/17 16:40 04/24/17 21:44 04/24/17 22:44 04/25/17 03:10 White Blood Count 9.04 K/uL 7.11 K/uL Red Blood Count 4.22 M/uL 3.61 M/uL Hemoglobin 11.7 g/dL 10.2 g/dL Hematocrit 36.5 % 31.0 % Mean Corpuscular Volume 86.5 fL 85.9 fL Mean Corpuscular Hemoglobin 27.7 pg 28.3 pg Mean Corpuscular Hemoglobin Concent 32.1 g/dl 32.9 g/dl Platelet Count 274 K/uL 190 K/uL Mean Platelet Volume 9.8 fL 9.3 fL Neutrophils (%) (Auto) 82.7 % 84.8 % Lymphocytes (%) (Auto) 8.7 % 6.8 % Monocytes (%) (Auto) 7.7 % 7.5 % Eosinophils (%) (Auto) 0.1 % 0.1 % Basophils (%) (Auto) 0.1 % 0.1 % Neutrophils # (Auto) 7.47 K/uL 6.03 K/uL Lymphocytes # (Auto) 0.79 K/uL 0.48 K/uL Monocytes # (Auto) 0.70 K/uL 0.53 K/uL Eosinophils # (Auto) 0.01 K/uL 0.01 K/uL Basophils # (Auto) 0.01 K/uL 0.01 K/uL RDW Standard Deviation 48.3 fL 47.8 fL RDW Coefficient of Variation 15.3 % 15.2 % Immature Granulocyte % (Auto) 0.7 % 0.7 % Immature Granulocyte # (Auto) 0.06 K/uL 0.05 K/uL Sodium Level 132 mmol/L 137 mmol/L 138 mmol/L Potassium Level 6.1 mmol/L 6.6 mmol/L 5.7 mmol/L Chloride Level 104 mmol/L 110 mmol/L 110 mmol/L Carbon Dioxide Level 20 mmol/L 21 mmol/L 22 mmol/L Anion Gap 8.0 mmol/L 6.0 mmol/L 6.0 mmol/L Blood Urea Nitrogen 64 mg/dl 55 mg/dl 50 mg/dl Creatinine 1.80 mg/dl 1.50 mg/dl 1.40 mg/dl Est Creatinine Clear Calc Drug Dose 43.5 ml/min 52.6 ml/min 56.4 ml/min Estimated GFR () 44.5 55.4 60.3 Estimated GFR (Non- 38.4 47.8 52.0 BUN/Creatinine Ratio 35.3 36.4 36.0 Random Glucose 190 mg/dl 95 mg/dl 107 mg/dl Calcium Level 9.9 mg/dl 9.5 mg/dl 9.4 mg/dl Total Bilirubin 0.5 mg/dl Direct Bilirubin 0.1 mg/dl Aspartate Amino Transf (AST/SGOT) 9 U/L Alanine Aminotransferase (ALT/SGPT) 17 U/L Alkaline Phosphatase 83 U/L Total Protein 7.5 gm/dl Albumin 3.4 gm/dl Lipase 425 U/L Bedside Glucose 84 mg/dl Magnesium Level 2.1 mg/dl 2.1 mg/dl Total Creatine Kinase 25 U/L Test 04/25/17 06:51 04/25/17 08:08 Bedside Glucose 82 mg/dl Potassium Level 6.3 mmol/L Assessment & Plan Nausea/Vomiting Related to Radiation therapy side effect Received 2 L IVF Continue IVF Zofran/phenergan starting on clear liquid diet Hyperkalemia K on admission 6.1 related to dehydration received Kayexalate, calcium gluconate, insulin yesterday K dropped to 5.7 then increased to 6.3 EKG showed no significant changes compare to prior EKG will give another dose of Kayexalate and calcium gluconate IVF changed to D5 N/S Continue monitor in telemetry Acute Kidney failure Creatine on admission 2 creatine today 1.4 Continue IVF hold metformin and lisinopril avoid nephrotoxic agents continue monitor BMP DM Type 2 last hba1c 7.2 on 02/22 Will hold metformin On insulin coverage lantus cut in half will start on D5 NS Anxiety/Depression continue Ativan and Wellbutrin Stable Left met renal carcinoma to the brain Undergoing radiation therapy follow with oncology at [place] DVT px on heparin subq Code status Full no [facility] ventilation Current Inpatient Medications: Current Inpatient Medications Medications (Trade) Dose Ordered Sig/Cristhian Route Start Time Stop Time Status Last Admin Dose Admin Ondansetron HCl (Zofran Inj) 4 mg Q6H PRN IV 04/24/17 18:45 05/24/17 18:44 04/25/17 07:36 4 MG Miscellaneous (Iv Fluids Completed) 1 ea PRN PRN N/A 04/24/17 19:00 04/24/18 18:59 Acetaminophen (Tylenol Tab) 500 mg Q6 PRN PO 04/24/17 19:00 05/24/17 18:59 04/24/17 19:42 500 MG Aspirin (Ecotrin Tab) 81 mg DAILY PO 04/25/17 09:00 05/25/17 08:59 Atorvastatin Calcium (Lipitor Tab) 40 mg DAILY PO 04/25/17 09:00 05/25/17 08:59 Bupropion HCl (Wellbutrin-Sr Tab) 100 mg BID PO 04/24/17 21:00 05/24/17 20:59 04/24/17 23:30 100 MG Insulin Glargine (Lantus Solostar Pen) 12 units QPM SC 04/25/17 21:00 05/25/17 20:59 Sertraline HCl (Zoloft Tab) 300 mg DAILY PO 04/25/17 09:00 05/25/17 08:59 Lorazepam (Ativan Tab) 0.5 mg TID PRN PO 04/24/17 19:15 05/24/17 19:14 Glucose (Glucose 40% Gel) 15-30 GRAMS 15 GRAMS... UD PRN PO 04/24/17 21:00 05/24/17 20:59 Glucose (Glucose Chew Tab) 4-8 Tablets 4 Tabl... UD PRN PO 04/24/17 21:00 05/24/17 20:59 Dextrose (Dextrose 50% 50ML Syringe) 25-50ML OF 50% DW IV FOR... UD PRN IV 04/24/17 21:00 05/24/17 20:59 Glucagon (Glucagon Inj) 1 mg UD PRN SQ 04/24/17 21:00 05/24/17 20:59 Hydromorphone HCl (Dilaudid Inj) 0.5 mg Q3H PRN IV 04/25/17 01:15 05/09/17 01:14 04/25/17 07:36 0.5 MG Promethazine HCl 12.5 mg/Sodium Chloride 50.5 ml @ 204 mls/hr Q6H PRN IV 04/25/17 01:15 05/25/17 01:14 04/25/17 10:16 204 MLS/HR Oxycodone/ Acetaminophen (Percocet 5-325mg Tab) 1 tab Q4H PRN PO 04/25/17 01:15 05/09/17 01:14 04/25/17 05:14 1 TAB Lorazepam (Ativan Tab) 0.25 mg HS PRN PO 04/25/17 01:30 05/25/17 01:29 Insulin Aspart (novoLOG ASPART) SLIDING SCALE If C... ACHS SC 04/25/17 11:00 05/25/17 10:59 Dextrose/Sodium Chloride 1,000 ml @ 100 mls/hr Q10H IV 04/25/17 11:15 05/25/17 11:14
[2017-04-25 15:43] VITALS: BP 156/62; PULSE 76; TEMP 36.8; O2SAT 96
[2017-04-25 19:15] LABS: CALCIUM 9.1 mg/dl (8.5-10.1); CREATININE 1.2 mg/dl (0.60-1.40)
[2017-04-25 19:17] LABS: POTASSIUM 5.1 mmol/L (3.5-5.1)
[2017-04-25 19:25] VITALS: BP 113/62; PULSE 90; TEMP 37; O2SAT 95
[2017-04-25] MEDS ORDERED: INSULIN GLARGINE SOLOSTAR 100 UNITS/ML 3 ML PEN SC SCH (21:00)
[2017-04-25] MEDS: DEXAMETHASONE 4 MG TAB PO SCH (21:36)
[2017-04-26 00:15] VITALS: BP 153/69; PULSE 69; TEMP 37.2; O2SAT 96
[2017-04-26] MEDS: PROMETHAZINE HCL INJ 12.5 MG in SODIUM CHLORIDE 0.9% 50ML 50 ML IV PRN (03:35)
[2017-04-26 04:00] VITALS: BP 150/71; PULSE 77; TEMP 37; O2SAT 96
[2017-04-26] MEDS: SODIUM CHLORIDE 0.9% 1000ML 1,000 ML IV SCH ×2 (04:25→17:45)
[2017-04-26] MEDS: OXYCODONE/ACETAMINOPHEN 5-325 TAB PO PRN ×2 (06:00→15:32)
[2017-04-26] MEDS: INSULIN ASPART 100 UNITS/ML 3 ML PEN SC SCH ×3 (07:00→17:36)
[2017-04-26] MEDS: ONDANSETRON INJ 2 MG/ML 2 ML VIAL IV PRN (07:25)
[2017-04-26 07:38] VITALS: BP 151/68; PULSE 68; TEMP 36.7; O2SAT 96
[2017-04-26 08:31] LABS: BUN/CREATININE RATIO 26.5 (10-20); CALCIUM 9.1 mg/dl (8.5-10.1); CREATININE 1.1 mg/dl (0.60-1.40); POTASSIUM 4.6 mmol/L (3.5-5.1)
[2017-04-26] MEDS: ASPIRIN 81 MG ECTAB PO SCH (09:14)
[2017-04-26] MEDS: DEXAMETHASONE 4 MG TAB PO SCH (09:14)
[2017-04-26] MEDS: BuPROPion SR 100 MG TABCR PO SCH (09:15)
[2017-04-26] MEDS: ATORVASTATIN 20 MG TAB PO SCH (09:16)
[2017-04-26] MEDS: SERTRALINE HCL 100 MG TAB PO SCH (09:17)
[2017-04-26] MEDS: HYDROmorphone INJ 0.5 MG/0.5 ML SYR IV PRN (09:29)
[2017-04-26] MEDS ORDERED: NURSING VERBAL MED ORDER ONE (11:00)
[2017-04-26] MEDS ORDERED: CALCIUM CARBONATE 500 MG CHEWABLE PO PRN (11:00)
[2017-04-26 11:31] VITALS: BP 154/66; PULSE 72; TEMP 36.8; O2SAT 95
--- NOTE | 2017-04-26 13:01 | Progress Note ---
Medicine Progress Note Date & Time of Visit: Apr 26, 2017 at 12:52. Subjective Pt was seen and examined Lying in bed comfortable with no distress with at bedside Pt said that he feels much better he has not had any vomiting since yesterday morning tolerated clear liquid diet denies any chest pain, palpitation, dizziness and sob Objective Last 8 Hrs Date Time Temp Pulse Resp B/P (MAP) Pulse Ox O2 Delivery O2 Flow Rate FiO2 04/26/17 12:00 Room Air 04/26/17 11:31 36.8 72 16 154/66 (95) 95 Room Air 04/26/17 10:14 Room Air 04/26/17 07:38 36.7 68 14 151/68 (95) 96 Physical Exam: General- No acute distress Head- atraumatic Eyes- PERRL, Right eye patch ENT- oropharynx clear Neck- supple, no JVD Lungs- No wheezing Heart- regular rhythm; no murmur Abdomen- normal bowel sounds, soft Extremities- no calf tenderness Neuro- alert, oriented, PERRL, EOMI Skin- warm & dry Laboratory Results: Last 24 Hours Test 04/25/17 16:04 04/25/17 18:23 04/25/17 20:29 04/26/17 07:24 Bedside Glucose 216 mg/dl 208 mg/dl 172 mg/dl Sodium Level 138 mmol/L Potassium Level 5.1 mmol/L Chloride Level 108 mmol/L Carbon Dioxide Level 22 mmol/L Anion Gap 8.0 mmol/L Blood Urea Nitrogen 38 mg/dl Creatinine 1.20 mg/dl Est Creatinine Clear Calc Drug Dose 66.5 ml/min Estimated GFR () 72.6 Estimated GFR (Non- 62.6 BUN/Creatinine Ratio 32.0 Random Glucose 205 mg/dl Calcium Level 9.1 mg/dl Test 04/26/17 07:41 04/26/17 11:03 Sodium Level 138 mmol/L Potassium Level 4.6 mmol/L Chloride Level 108 mmol/L Carbon Dioxide Level 21 mmol/L Anion Gap 9.0 mmol/L Blood Urea Nitrogen 29 mg/dl Creatinine 1.10 mg/dl Est Creatinine Clear Calc Drug Dose 72.5 ml/min Estimated GFR () 80.6 Estimated GFR (Non- 69.6 BUN/Creatinine Ratio 26.5 Random Glucose 171 mg/dl Calcium Level 9.1 mg/dl Bedside Glucose 178 mg/dl Assessment & Plan Nausea/Vomiting Related to Radiation therapy side effect Received 2 L IVF On IVF Zofran/phenergan Tolerated clear liquid diet Advanced diet to full liquid as tolerated resolved Hyperkalemia K on admission 6.1 related to dehydration received Kayexalate, calcium gluconate, insulin yesterday K dropped to 5.7 then increased to 6.3 EKG showed no significant changes compare to prior EKG will give another dose of Kayexalate and calcium gluconate IVF changed to D5 N/S Continue monitor in telemetry 04/26 K 4.6 today Received Kayexalate yesterday Lisinopril on hold Repeat K within a week Acute Kidney failure Creatine on admission 2 creatine today 1.1 Continue IVF hold metformin and lisinopril avoid nephrotoxic agents continue monitor BMP Resolved DM Type 2 last hba1c 7.2 on 02/22 Will hold metformin On insulin coverage lantus cut in half will start on D5 NS 04/26 Received lantus 12 unit last night Fluid changed to NS Continue monitor BS Weakness physical therapy Fall precaution Anxiety/Depression continue Ativan and Wellbutrin Stable Left met renal carcinoma to the brain Undergoing radiation therapy follow with oncology at [place] ( had an appointment today, called to cancel appt) On dexamethasone taper DVT px on heparin subq Code status [facility] Disposition Plan to discharge today Current Inpatient Medications: Current Inpatient Medications Medications (Trade) Dose Ordered Sig/Cristhian Route Start Time Stop Time Status Last Admin Dose Admin Ondansetron HCl (Zofran Inj) 4 mg Q6H PRN IV 04/24/17 18:45 05/24/17 18:44 04/26/17 07:25 4 MG Miscellaneous (Iv Fluids Completed) 1 ea PRN PRN N/A 04/24/17 19:00 04/24/18 18:59 Acetaminophen (Tylenol Tab) 500 mg Q6 PRN PO 04/24/17 19:00 05/24/17 18:59 04/24/17 19:42 500 MG Aspirin (Ecotrin Tab) 81 mg DAILY PO 04/25/17 09:00 05/25/17 08:59 04/26/17 09:14 81 MG Atorvastatin Calcium (Lipitor Tab) 40 mg DAILY PO 04/25/17 09:00 05/25/17 08:59 04/26/17 09:16 40 MG Bupropion HCl (Wellbutrin-Sr Tab) 100 mg BID PO 04/24/17 21:00 05/24/17 20:59 04/26/17 09:15 100 MG Insulin Glargine (Lantus Solostar Pen) 12 units QPM SC 04/25/17 21:00 05/25/17 20:59 04/25/17 21:42 12 UNITS Sertraline HCl (Zoloft Tab) 300 mg DAILY PO 04/25/17 09:00 05/25/17 08:59 04/26/17 09:17 300 MG Lorazepam (Ativan Tab) 0.5 mg TID PRN PO 04/24/17 19:15 05/24/17 19:14 Glucose (Glucose 40% Gel) 15-30 GRAMS 15 GRAMS... UD PRN PO 04/24/17 21:00 05/24/17 20:59 Glucose (Glucose Chew Tab) 4-8 Tablets 4 Tabl... UD PRN PO 04/24/17 21:00 05/24/17 20:59 Dextrose (Dextrose 50% 50ML Syringe) 25-50ML OF 50% DW IV FOR... UD PRN IV 04/24/17 21:00 05/24/17 20:59 Glucagon (Glucagon Inj) 1 mg UD PRN SQ 04/24/17 21:00 05/24/17 20:59 Hydromorphone HCl (Dilaudid Inj) 0.5 mg Q3H PRN IV 04/25/17 01:15 05/09/17 01:14 04/26/17 09:29 0.5 MG Promethazine HCl 12.5 mg/Sodium Chloride 50.5 ml @ 204 mls/hr Q6H PRN IV 04/25/17 01:15 05/25/17 01:14 04/26/17 03:35 204 MLS/HR Oxycodone/ Acetaminophen (Percocet 5-325mg Tab) 1 tab Q4H PRN PO 04/25/17 01:15 05/09/17 01:14 04/26/17 06:00 1 TAB Lorazepam (Ativan Tab) 0.25 mg HS PRN PO 04/25/17 01:30 05/25/17 01:29 Insulin Aspart (novoLOG ASPART) SLIDING SCALE If C... ACHS SC 04/25/17 11:00 05/25/17 10:59 04/26/17 12:44 2 UNITS Sodium Chloride 1,000 ml @ 80 mls/hr [id number] IV 04/25/17 16:45 05/25/17 16:44 04/26/17 04:25 80 MLS/HR Dexamethasone (Decadron Tab) 4 mg BID PO 04/25/17 21:00 05/25/17 20:59 04/26/17 09:14 4 MG Calcium Carbonate (Tums Chew Tab) 1,000 mg TID PRN PO 04/26/17 11:00 05/26/17 10:59 04/26/17 12:37 1,000 MG
[2017-04-26 15:38] VITALS: BP 143/77; PULSE 81; TEMP 37.2; O2SAT 96
[2017-04-26] MEDS ORDERED: DXM/4 PO (18:25)
--- NOTE | 2017-04-26 18:35 | Discharge Instructions ---
Discharge Instructions Date of Service Apr 26, 2017. Admission Reason for Admission: Dehydration,Hyperkalemia Discharge Discharge Diagnosis / Problem: Nausea/Vomiting/ Dehydration/Acute kidney injury /Hyperkalemia Discharge Goals Goal(s): Decrease discomfort, Improve function, Improve disease control Activity Recommendations Activity Limitations: resume your previous activity (as tolerated) . Instructions / Follow-Up Instructions / Follow-Up Follow up appointment with your primary care provider Dr. Draper on 04/30 at 10: 45 am Follow up with your oncology doctor (Please call to reschedule appointment) continue dexamethasone taper as instructed by your oncologist Check BMP within 1 week to monitor potassium Fall precaution Monitor your blood sugar and follow a healthy diabetic diet Monitor blood pressure Current Hospital Diet Patient's current hospital diet: Diabetes Type 2 Diet Discharge Diet Recommended Diet: Diabetes Type 2 Diet Pending Studies Studies pending at discharge: no Medical Emergencies . Who to Call and When: Medical Emergencies: If at any time you feel your situation is an emergency, please call 911 immediately. . Non-Emergent Contact Non-Emergency issues call your: Primary Care Provider Call Non-Emergent contact if: you have any medication questions . . "Provider Documentation" section prepared by Olivia Dee. . VTE Core Measure Inpt VTE Proph given/why not?: Unfractionated heparin SQ
[2017-04-26 18:37] VITALS: BP 143/77; PULSE 81; TEMP 37.2; O2SAT 96
--- NOTE | 2017-04-29 01:28 | Discharge Summary ---
Discharge Summary Date of Service Apr 29, 2017. 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 TECHNIQUE: Multidetector CT imaging of the head was performed without the use of intravenous contrast. IV contrast: None. A dose lowering technique was used consistent with the principles of ALARA (as low as reasonably achievable). COMPARISON: 02/17/2017. CT DOSE (mGy.cm): The estimated cumulative dose is 614.27 mGy.cm. FINDINGS: Track Laying Equipment Operator topogram: Unremarkable. Ventricles and sulci normal in size. Brain parenchyma normal in appearance with preserved martell-white differentiation. No mass effect or midline shift. No hemorrhage or acute territorial infarct. No extra-axial fluid collection. Interval development of mild left maxillary mucosal thickening. Aerated secretions in the left nasopharynx and minimally in the left anterior ethmoid air cells. 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 There is also a greater degree of epidural extension along the left anterior aspect of the medulla without significant underlying mass effect. There is also significantly greater extension into the sella. IMPRESSION: 1. Significant interval increase in size of the destructive skull base mass with complete obstruction of the visualized portion of the nasopharynx. Resulting aerated secretions in the nasopharynx with mild left maxillary mucosal thickening. Acute sinusitis cannot be excluded. Significantly greater epidural extension at the brainstem and invasion of the sella. The full extent would be better characterized with noncontrast MR brain. Despite the given history of radiation, these findings are most consistent with progression of disease in comparison to prior CT from February 25, 2017. 2. No other acute intracranial pathology. Electronically signed by: Ronald Jenkins M.D. 04/25/2017 6:53 AM Dictated Date/Time: 04/25/2017 6:47 AM Medication Reconciliation Continued Medications: Aspirin (Aspirin Ec) 81 Mg Tab 81 MG PO DAILY Atorvastatin (Lipitor) 40 Mg Tab 40 MG PO DAILY, TAB Bupropion Hcl (Bupropion Hcl Er) 100 Mg Tab 100 MG PO BID Dexamethasone (Decadron) 4 Mg Tab 4 TAB PO UD, TAB as directed Insulin Glargine (Lantus) 100 Unit/Ml Inj 12 UNITS SC QPM, VIAL Lisinopril (Lisinopril) 20 Mg Tab 20 MG PO DAILY Lorazepam (Ativan) 1 Mg Tab 1 MG PO HS MAY TAKE UP TO TID IF NEEDED. Metformin HCl (Metformin HCl) 500 Mg Tab 1000 MG PO BID Ondansetron Odt (Zofran Odt) 8 Mg Soltab 8 MG SL Q8 PRN for Nausea, TAB Sertraline Hcl (Zoloft) 100 Mg Tab 300 MG PO DAILY, TAB Admission Information HPI (per Admitting provider): 66 year old male with PMH of Left renal carcinoma met to the brain, HTN, DM type 2 presents to the Emergency Room with complaints Nausea and vomiting that has been going on for 5 days. Pt said that the vomiting has getting worst. she said that she has multiple episodes. Pt said that the nausea and vomiting seems to start about the same time when he started radiation therapy. But the vomiting has gotten worst in the last few days. Pt said that he cannot keep anything in his stomach. He said that he has not been eating. He said that he feels weak and tired. He called his radiation oncologist that advised him to go to the ER for eval. Denies any chest pain, palpitation, dizziness, fever and SOB. Physical Exam (per Admitting): General Appearance: WD/WN, no apparent distress Head: normocephalic, atraumatic Eyes: PERRL, EOMI, + pertinent finding (patch on the right eyes) ENT: + pertinent finding (decrease hearing function) Neck: supple, no JVD Respiratory/Chest: no respiratory distress, no accessory muscle use Cardiovascular: no JVD, no murmur Abdomen/GI: normal bowel sounds, non tender, soft Back: no CVA tenderness Extremities/Musculoskelatal: no calf tenderness Neurologic/Psych: normal mood/affect, oriented x 3 Skin: normal color, no rash Hospital Course Nausea/Vomiting Related to Radiation therapy side effect Received 2 L IVF On IVF Zofran/phenergan Tolerated clear liquid diet Advanced diet to full liquid as tolerated resolved Hyperkalemia K on admission 6.1 related to dehydration received Kayexalate, calcium gluconate, insulin yesterday K dropped to 5.7 then increased to 6.3 EKG showed no significant changes compare to prior EKG will give another dose of Kayexalate and calcium gluconate IVF changed to D5 N/S Continue monitor in telemetry 04/26 K 4.6 today Received Kayexalate yesterday Lisinopril on hold Repeat K within a week Acute Kidney failure Creatine on admission 2 creatine today 1.1 Continue IVF hold metformin and lisinopril avoid nephrotoxic agents continue monitor BMP Resolved DM Type 2 last hba1c 7.2 on 02/22 Will hold metformin On insulin coverage lantus cut in half will start on D5 NS 04/26 Received lantus 12 unit last night Fluid changed to NS Continue monitor BS Weakness physical therapy Fall precaution Anxiety/Depression continue Ativan and Wellbutrin Stable 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 Disposition Plan to discharge today Total time spent on discharge = 35 minutes This includes examination of the patient, discharge planning, medication reconciliation, and communication with other providers. Discharge Instructions Please take this sheet to every appointment for the next month Discharge Instructions Date of Service Apr 26, 2017. Admission Reason for Admission: Dehydration,Hyperkalemia Discharge Discharge Diagnosis / Problem: Nausea/Vomiting/ Dehydration/Acute kidney injury /Hyperkalemia Discharge Goals Goal(s): Decrease discomfort, Improve function, Improve disease control Activity Recommendations Activity Limitations: resume your previous activity (as tolerated) . Instructions / Follow-Up Instructions / Follow-Up Follow up appointment with your primary care provider Dr. Draper on 04/30 at 10: 45 am Follow up with your oncology doctor (Please call to reschedule appointment) continue dexamethasone taper as instructed by your oncologist Check BMP within 1 week to monitor potassium Fall precaution Monitor your blood sugar and follow a healthy diabetic diet Monitor blood pressure Current Hospital Diet Patient's current hospital diet: Diabetes Type 2 Diet Discharge Diet Recommended Diet: Diabetes Type 2 Diet Pending Studies Studies pending at discharge: no Medical Emergencies . Who to Call and When: Medical Emergencies: If at any time you feel your situation is an emergency, please call 911 immediately. . Non-Emergent Contact Non-Emergency issues call your: Primary Care Provider Call Non-Emergent contact if: you have any medication questions . . "Provider Documentation" section prepared by Olivia Dee. . VTE Core Measure Inpt VTE Proph given/why not?: Unfractionated heparin SQ Signed: Signed: The status of this report is Draft * If report status is Draft, the document has not been finalized by the responsible provider. Additional Copies To Deandre Draper M.D.
[2017-05-19] MEDS ORDERED: SCOP1DIS14 TD (15:30)
[2017-05-19] MEDS ORDERED: RXNS5 PO (15:30)
[2017-05-19] MEDS ORDERED: HYDR1LIQ8 PO (15:30)
[2017-05-19] MEDS ORDERED: ATRO1SOL13 SL (15:30)
[2017-05-19] MEDS ORDERED: [UNRECOGNIZED DRUG - CODE] PO (15:30)
[2017-05-19] MEDS ORDERED: DRGTP25 TD (15:30)
[2017-05-19] MEDS ORDERED: ATV1 SL (15:30)
== END 2017-04-26 19:19 | disposition home or self-care (01) | DRG 392 ==
LOC: C.EDB 16:17 → C.2T 19:14 → EDBEDREQ 19:19 → ENRESERV 19:27
PROVIDERS: ADMIT Internal Medicine; ATTEND Internal Medicine
DX: R11.2 Nausea with vomiting, unspecified (principal); N17.9 Acute kidney failure, unspecified; C64.2 Malignant neoplasm of left kidney, except renal pelvis; C79.31 Secondary malignant neoplasm of brain; T66.XXXA Radiation sickness, unspecified, initial encounter; E87.5 Hyperkalemia; F41.9 Anxiety disorder, unspecified; F32.9 Major depressive disorder, single episode, unspecified; E11.9 Type 2 diabetes mellitus without complications; I10 Essential (primary) hypertension; R53.1 Weakness; Z87.891 Personal history of nicotine dependence; Z79.4 Long term (current) use of insulin; Z79.52 Long term (current) use of systemic steroids; Z79.82 Long term (current) use of aspirin; Z79.84 Long term (current) use of oral hypoglycemic drugs; Z79.899 Other long term (current) drug therapy; Z83.3 Family history of diabetes mellitus; Z82.49 Family history of ischemic heart disease and other diseases of the circulatory system

== ENCOUNTER 2017-05-11 08:32 | Inpatient (IN) | payer BC, OTHER ==
[2017-05-11] VITALS (7 sets, daily range): BP systolic 119–129; BP diastolic 73–76; PULSE 83–104; TEMP 36.6–36.9; O2SAT 92–97; BMI 21.3
[~2017-05-11] VITALS: Ht 185.4 cm; Wt 73.2 kg
[~2017-05-11 08:32] MED LIST changes: -ACT/15 PO; +BUPR-266 PO; -BUPR100T13 PO; +DXM/4 PO; +INSDGI SC; -LISI-461 PO; +LSN20 PO; +ONDA8TAB62 SL; +SERT1TAB68 PO; -SERT25TA PO
[2017-05-11] MEDS ORDERED: SODIUM CHLORIDE 0.9% 1000ML 500 ML IV STA (09:05)
[2017-05-11] MEDS ORDERED: SODIUM CHLORIDE 0.9% 1000ML 1,000 ML IV STA (09:05)
--- NOTE | 2017-05-11 09:07 | EMERGENCY ROOM VISIT NOTE ---
History Report prepared by Celso: Shayy Sanchez Under the Supervision of: Dr. Salazar Alvarado M.D. First contact with patient: 08:57 Chief Complaint: DEHYDRATION Stated Complaint: DEHYDRATED, WEAKNESS-AFFECTS OF RADIATION Nursing Triage Summary: last radiation tx 04/19 tx for kidney CA with mets to lungs and brain. has not been eating or drinking well for about 3 wks. pt spouse reports since Sat. has had increased head pain tylenol not helping . last oxycodone at 0100. pt reports cough with large amount of phlegm History of Present Illness The patient is a 66 year old male who presents to the Emergency Room with complaints of persistent weakness for the past week. He currently rates his discomfort as a 5/10 in severity. Per the patient's , the patient has a history of stage IV Kidney cancer with mets to his lung and metastases in his brain. She states that the patient's last radiation treatment was on 04/19 and he has not begun chemotherapy since he has been so weak. The patient's states that the patient has had difficulty talking due to increased phlegm in his throat. She states that the patient has been vomiting due to the phlegm. The patient's states that the patient has been tachycardic and hypotensive. She states that the patient has complained of increased pain in his head, noting that previously he complained of a dull pain. The patient's states that the patient was instructed to come to the emergency department last week by his doctor, but notes that he refused. She reports that the patient was evaluated in the hospital two weeks ago for hypoglycemia and hyperkalemia. The patient's states that the patient has had a decrease in appetite over the past two and a half weeks. The patient denies any chills or known fever. Source of History: patient, spouse/significant other () Onset: past week Position: other (global) Symptom Intensity: 510 Quality: other (weakness) Timing: other (persistent) Associated Symptoms: + vomiting, No fevers, No chills Note: Associated Symptoms: hypotension, tachycardic, difficulty talking, increased phlegm Review of Systems See HPI for pertinent positives & negatives. A total of 10 systems reviewed and were otherwise negative. Past Medical & Surgical Medical Problems: (1) Acute renal failure (2) Cancer of kidney (3) Diabetes (4) HTN (hypertension) (5) Hyperkalemia Family History Cancer Diabetes mellitus FHx: gallbladder disease Hypertension Social History Smoking Status: Former Smoker Drug Use: none Marital Status: Housing Status: lives with significant other Occupation Status: retired Current/Historical Medications Scheduled Aspirin (Aspirin Ec), 81 MG PO DAILY Atorvastatin (Lipitor), 40 MG PO DAILY Bupropion Hcl (Bupropion Hcl Er), 100 MG PO BID Dexamethasone (Decadron), 4 TAB PO UD Insulin Glargine (Lantus), 12 UNITS SC QPM Lisinopril (Lisinopril), 20 MG PO DAILY Lorazepam (Ativan), 1 MG PO HS Sertraline Hcl (Zoloft), 300 MG PO DAILY Scheduled PRN Ondansetron Odt (Zofran Odt), 8 MG SL Q8 PRN for Nausea Allergies Coded Allergies: No Known Allergies (Unverified , 05/11/17) Physical Exam Vital Signs Date Time Temp Pulse Resp B/P (MAP) Pulse Ox O2 Delivery O2 Flow Rate FiO2 05/11/17 10:07 108 18 136/68 97 Room Air 05/11/17 09:11 112 05/11/17 08:39 36.2 121 20 102/59 97 Room Air Physical Exam GENERAL: Patient is in no acute distress. HEENT: No acute trauma, normocephalic atraumatic, mucous membranes quite dry, no nasal congestion, no scleral icterus, healing lesions to the hard and soft palate consistent with radiation. NECK: No stridor, no adenopathy, no meningismus, trachea is midline. LUNGS: Clear to auscultation bilaterally, no wheeze, no rhonchi, breath sounds equal. HEART: Tachycardic with a regular rhythm, no murmurs. ABDOMEN: Soft, nontender, bowel sounds positive, no hernias, no peritonitis. EXTREMITIES: No cyanosis or edema, full range of motion of all the joints without pain or difficulty, no signs for acute trauma. NEUROLOGIC: Oriented x 3, no acute motor or sensory deficits, no focal weakness. SKIN: No rash, no jaundice, no diaphoresis. Pale Medical Decision & Procedures ER Provider Diagnostic Interpretation: Radiology results as stated below per my review and radiologist interpretation: CHEST ONE VIEW PORTABLE CLINICAL HISTORY: 66 years-old Male presenting with EVALUATE ALTERED MENTAL STATUS/WEAKNESS. TECHNIQUE: Portable upright AP view of the chest was obtained. COMPARISON: 02/17/2017. FINDINGS: Atherosclerosis of aortic arch. Cardiac silhouette normal in size. Few calcified granulomas may be present bilaterally. Lungs and pleural spaces clear. Osseous structures normal. Upper abdomen normal. IMPRESSION: 1. No acute cardiopulmonary disease. Electronically signed by: Ronald Jenkins M.D. 05/11/2017 9:31 AM Dictated Date/Time: 05/11/2017 9:30 AM HEAD WITHOUT CONTRAST (CT) CLINICAL HISTORY: 66 years-old Male presenting with EVALUATE ALTERED MENTAL STATUS/WEAKNESS, headache, history of kidney cancer. TECHNIQUE: Multidetector CT imaging of the head was performed without the use of intravenous contrast. IV contrast: None. A dose lowering technique was used consistent with the principles of ALARA (as low as reasonably achievable). COMPARISON: 04/25/2017. CT DOSE (mGy.cm): The estimated cumulative dose is 691.05 mGy.cm. FINDINGS: Linderman Machine Operator topogram: Unremarkable. Ventricles and sulci normal in size. Brain parenchyma normal in appearance with preserved martell-white differentiation. No mass effect or midline shift. No hemorrhage or acute territorial infarct. No extra-axial fluid collection. Destructive mass at the skull base with a similar distribution as on the most recent examination. Complete obstruction of the nasopharynx. Aerated secretions in the nasal cavity. Layering fluid in the left maxillary sinus, new from prior. Opacification of left mastoid air cells, unchanged. IMPRESSION: 1. No acute intracranial pathology. 2. Stable appearance of the destructive skull base mass, most consistent with a metastatic lesion. 3. New layering fluid in the left maxillary sinus in addition to chronic paranasal sinus and nasopharyngeal obstruction. Layering fluid could suggest acute sinusitis. Electronically signed by: Ronald Jenkins M.D. 05/11/2017 10:07 AM Dictated Date/Time: 05/11/2017 10:03 AM The status of this report is Signed. Draft = Not yet reviewed or approved by Radiologist. Signed = Reviewed and approved by Radiologist. Laboratory Results 05/11/17 09:37 Red Blood Count 3.86, Mean Corpuscular Volume 81.6, Mean Corpuscular Hemoglobin 27.2, Mean Corpuscular Hemoglobin Concent 33.3, Mean Platelet Volume 9.5, Neutrophils (%) (Auto) 86.7, Lymphocytes (%) (Auto) 6.5, Monocytes (%) (Auto) 5.5, Eosinophils (%) (Auto) 0.1, Basophils (%) (Auto) 0.1, Neutrophils # (Auto) 9.26, Lymphocytes # (Auto) 0.69, Monocytes # (Auto) 0.59, Eosinophils # (Auto) 0.01, Basophils # (Auto) 0.01 Test 05/11/17 09:37 White Blood Count 10.68 K/uL (4.8-10.8) Red Blood Count 3.86 M/uL (4.7-6.1) Hemoglobin 10.5 g/dL (14.0-18.0) Hematocrit 31.5 % (42-52) Mean Corpuscular Volume 81.6 fL (80-100) Mean Corpuscular Hemoglobin 27.2 pg (25-34) Mean Corpuscular Hemoglobin Concent 33.3 g/dl (32-36) Platelet Count 286 K/uL (130-400) Mean Platelet Volume 9.5 fL (7.4-10.4) Neutrophils (%) (Auto) 86.7 % Lymphocytes (%) (Auto) 6.5 % Monocytes (%) (Auto) 5.5 % Eosinophils (%) (Auto) 0.1 % Basophils (%) (Auto) 0.1 % Neutrophils # (Auto) 9.26 K/uL (1.4-6.5) Lymphocytes # (Auto) 0.69 K/uL (1.2-3.4) Monocytes # (Auto) 0.59 K/uL (0.11-0.59) Eosinophils # (Auto) 0.01 K/uL (0-0.5) Basophils # (Auto) 0.01 K/uL (0-0.2) RDW Standard Deviation 46.5 fL (36.4-46.3) RDW Coefficient of Variation 15.6 % (11.5-14.5) Immature Granulocyte % (Auto) 1.1 % Immature Granulocyte # (Auto) 0.12 K/uL (0.00-0.02) Magnesium Level 1.7 mg/dl (1.8-2.4) Total Bilirubin 0.5 mg/dl (0.2-1) Aspartate Amino Transf (AST/SGOT) 14 U/L (15-37) Alanine Aminotransferase (ALT/SGPT) 16 U/L (12-78) Alkaline Phosphatase 91 U/L (45-117) Troponin I < 0.015 ng/ml (0-0.045) Total Protein 6.6 gm/dl (6.4-8.2) Albumin 3.0 gm/dl (3.4-5.0) Globulin 3.6 gm/dl (2.5-4.0) Albumin/Globulin Ratio 0.8 (0.9-2) Thyroid Stimulating Hormone (TSH) 1.850 uIu/ml (0.300-4.500) Laboratory results reviewed by me. Medications Administered Medications (Trade) Dose Ordered Sig/Cristhian Route Start Time Stop Time Status Last Admin Dose Admin Sodium Chloride 500 ml @ 999 mls/hr Q31M STAT IV 05/11/17 09:05 05/11/17 09:35 DC 05/11/17 09:05 999 MLS/HR Sodium Chloride 1,000 ml @ 200 mls/hr Q5H STAT IV 05/11/17 09:05 05/11/17 12:51 DC 05/11/17 09:05 200 MLS/HR Morphine Sulfate (MoRPHine SULFATE INJ) 4 mg Q15M PRN IV 05/11/17 10:15 05/11/17 12:51 DC 05/11/17 11:00 4 MG Ceftriaxone Sodium (Rocephin Inj) 1 gm NOW STAT IV 05/11/17 10:31 05/11/17 10:32 DC 05/11/17 11:14 1 GM Magnesium Sulfate (Magnesium Sulfate) 1 gm NOW STAT IV 05/11/17 10:31 05/11/17 10:32 DC 05/11/17 11:14 1 GM ECG Indication: weakness Rate (beats per minute): 103 Rhythm: sinus tachycardia Findings: no acute ischemic change, no ectopy ED Course 0858: The patient was evaluated in room B4B. A complete history and physical exam was performed. 0905: Ordered Sodium Chloride 1000 ml @ 200 mls/hr IV, Sodium Chloride 500 ml @ 999 mls/hr IV. 1015: Ordered Morphine Sulfate 4 mg IV. 1031: Ordered Magnesium Sulfate 1 gm IV, Rocephin Inj 1 gm IV. 1044: I reevaluated the patient and he is resting. I discussed the exam findings with him and I discussed the treatment plan. He verbalized complete understanding and agreement. The patient will be evaluated for further treatment. 1047: I discussed the patients case with Harpal Amezcua. She is going to evaluate the patient for further treatment. Medical Decision The patient is a 66 year old male who presents to the ED with complaints of weakness. Differential diagnoses considered include Dehydration, renal failure , electrolyte imbalance, UTI, intracranial bleeding, dysrhythmia. There is no leukocytosis. A mild anemia is present. There was no kidney failure or hepatitis. Magnesium was somewhat low at 1.7. Chest x-ray does not show pneumonia or CHF. Brain CT shows the known mass for which he is being treated. A sinusitis was suggested. EKG shows a sinus rhythm, no acute ischemia. Cardiac enzyme testing times one is not consistent with acute cardiac injury. The patient appears to be in a euthyroid state. INR was elevated-the patient was over anticoagulated. The patient presents dehydrated and weak. He did receive IV saline, IV magnesium. He received IV morphine for his headache. Because of the sinusitis , he received IV ceftriaxone. Given the out patient treatment failure, admission/observation is warranted. The patient's tachycardia has improved since receiving IV fluids, he feels improved. I did speak to the patient and case management. The on-call hospitalist was consulted. Medication Reconcilliation Current Medication List: was personally reviewed by me Blood Pressure Screening Patient's blood pressure: Elevated blood pressure Blood pressure disposition: Elevated BP felt to be situational, Did not require urgent referral Consults Time Called: 1039 Consulting Physician: Harpal Amezcua Returned Call: [phone] I discussed the patients case with Harpal Amezcua. She is going to evaluate the patient for further treatment. Impression Primary Impression: Tachycardia Additional Impressions: Dehydration Sinusitis Elevated INR Metastatic disease Scribe Attestation The scribe's documentation has been prepared under my direction and personally reviewed by me in its entirety. I confirm that the note above accurately reflects all work, treatment, procedures, and medical decision making performed by me. Departure Information Dispostion Being Evaluated By Hospitalist Referrals Deandre Draper M.D. (PCP) Problem Qualifiers
--- NOTE | 2017-05-11 09:33 | DIAGNOSTIC IMAGING REPORT ---
CHEST ONE VIEW PORTABLE CLINICAL HISTORY: 66 years-old Male presenting with EVALUATE ALTERED MENTAL STATUS/WEAKNESS. TECHNIQUE: Portable upright AP view of the chest was obtained. COMPARISON: 02/17/2017. FINDINGS: Atherosclerosis of aortic arch. Cardiac silhouette normal in size. Few calcified granulomas may be present bilaterally. Lungs and pleural spaces clear. Osseous structures normal. Upper abdomen normal. IMPRESSION: 1. No acute cardiopulmonary disease. Electronically signed by: Ronald Jenkins M.D. 05/11/2017 9:31 AM Dictated Date/Time: 05/11/2017 9:30 AM
[2017-05-11 09:54] LABS: BASO % 0.1 %; BASO ABS # 0.01 K/uL (0-0.2); COMPLETE YES; EOS % 0.1 %; HEMATOCRIT 31.5 % (42-52); IG% 1.1 %; LYMPH % 6.5 %; LYMPH ABS # 0.69 K/uL (1.2-3.4); MEAN CELL VOLUME 81.6 fL (80-100); MEAN CORPUSCULAR HEMOGLOBIN 27.2 pg (25-34); MEAN CORPUSCULAR HGB CONC 33.3 g/dl (32-36); MEAN PLATELET VOLUME 9.5 fL (7.4-10.4); MONO % 5.5 %; NEUT % 86.7 %; PLATELET COUNT 286 K/uL (130-400); RED BLOOD COUNT 3.86 M/uL (4.7-6.1); WHITE BLOOD COUNT 10.68 K/uL (4.8-10.8)
--- NOTE | 2017-05-11 10:09 | DIAGNOSTIC IMAGING REPORT ---
HEAD WITHOUT CONTRAST (CT) CLINICAL HISTORY: 66 years-old Male presenting with EVALUATE ALTERED MENTAL STATUS/WEAKNESS, headache, history of kidney cancer. TECHNIQUE: Multidetector CT imaging of the head was performed without the use of intravenous contrast. IV contrast: None. A dose lowering technique was used consistent with the principles of ALARA (as low as reasonably achievable). COMPARISON: 04/25/2017. CT DOSE (mGy.cm): The estimated cumulative dose is 691.05 mGy.cm. FINDINGS: Leasing Associate topogram: Unremarkable. Ventricles and sulci normal in size. Brain parenchyma normal in appearance with preserved martell-white differentiation. No mass effect or midline shift. No hemorrhage or acute territorial infarct. No extra-axial fluid collection. Destructive mass at the skull base with a similar distribution as on the most recent examination. Complete obstruction of the nasopharynx. Aerated secretions in the nasal cavity. Layering fluid in the left maxillary sinus, new from prior. Opacification of left mastoid air cells, unchanged. IMPRESSION: 1. No acute intracranial pathology. 2. Stable appearance of the destructive skull base mass, most consistent with a metastatic lesion. 3. New layering fluid in the left maxillary sinus in addition to chronic paranasal sinus and nasopharyngeal obstruction. Layering fluid could suggest acute sinusitis. Electronically signed by: Ronald Jenkins M.D. 05/11/2017 10:07 AM Dictated Date/Time: 05/11/2017 10:03 AM
[2017-05-11 10:12] LABS: ALT/SGPT 16 U/L (12-78); AST/SGOT 14 U/L (15-37); BLOOD UREA NITROGEN 40 mg/dl (7-18); CALCIUM 9.2 mg/dl (8.5-10.1); CARBON DIOXIDE 21 mmol/L (21-32); CHLORIDE 98 mmol/L (98-107); GLUCOSE 208 mg/dl (70-99); MAGNESIUM 1.7 mg/dl (1.8-2.4); POTASSIUM 4.2 mmol/L (3.5-5.1); SODIUM 133 mmol/L (136-145)
[2017-05-11] MEDS: MoRPHine SULFATE 4 MG/ML 1 ML CARP\\VIAL IV PRN ×2 (10:18→11:00)
[2017-05-11 10:19] LABS: PARTIAL THROMBOPLASTIN RATIO 2.5; PROTHROMBIN TIME (PATIENT) 85.2 SECONDS (9.0-12.0)
[2017-05-11 10:23] LABS: ALB/GLOB RATIO 0.8 (0.9-2); ALKALINE PHOSPHATASE 91 U/L (45-117)
[2017-05-11 10:30] LABS: INR 7.3 (0.9-1.1)
[2017-05-11] MEDS ORDERED: MAGNESIUM SULFATE 1GM / D5W 1 GM BAG IV STA (10:31)
[2017-05-11] MEDS ORDERED: CEFTRIAXONE SOD INJ 1 GM ADDVIAL IV STA (10:31)
[2017-05-11] MEDS ORDERED: ACETAMINOPHEN 325 MG TAB PO PRN (11:00)
[2017-05-11] MEDS ORDERED: CONSULT PHARMACY STA (12:25)
--- NOTE | 2017-05-11 12:38 | History and Physical ---
History & Physical Date & Time of Service: May 11, 2017 at 12:38 Chief Complaint: Acute Renal Failure Primary Care Physician: Deandre Draper M.D. History of Present Illness Source: patient, spouse, clinic records, hospital records 66 year old male with history of 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 Patient follows with Dr. Draper for PCP and [facility] for Oncology. Patient was diagnosed with Renal Cell CA around February and underwent 10 radiation therapy sessions for the brain mets last month. His oncologist was planning to start him with oral chemotherapy this month. He was admitted to [facility] a few weeks ago for dehydration secondary to nausea and vomiting. Upon coming home, patient continue to have poor oral intake, consisting of small amounts of oatmeal and fluids. Family reports persistent nausea and occasional vomiting. also noted increase green secretions per nares and patient was complaining of increasing headache. There was occasional tinge of blood with the nasal secretions. He was brought to the ER for weakness. Family History Cancer Diabetes mellitus FHx: gallbladder disease Hypertension Social History Smoking Status: Former Smoker Drug Use: none Marital Status: Housing status: lives with family Occupational Status: retired Multi-Drug Resistant Organisms History of MDRO: No Allergies Coded Allergies: No Known Allergies (Unverified , 05/11/17) Home Medications Scheduled Aspirin (Aspirin Ec), 81 MG PO DAILY Atorvastatin (Lipitor), 40 MG PO DAILY Bupropion Hcl (Bupropion Hcl Er), 100 MG PO BID Dexamethasone (Decadron), 4 TAB PO UD Insulin Glargine (Lantus), 12 UNITS SC QPM Lisinopril (Lisinopril), 20 MG PO DAILY Lorazepam (Ativan), 1 MG PO HS Sertraline Hcl (Zoloft), 300 MG PO DAILY Scheduled PRN Ondansetron Odt (Zofran Odt), 8 MG SL Q8 PRN for Nausea Review of Systems Constitutional- no fever; (+)weight loss Eyes- (+) diplopia ENT-(+) as noted above Pulmonary- no cough, no wheezing, no shortness of breath Cardiac- no chest pain, no palpitations, no orthopnea, no dependent edema GI-(+) as noted above - no dysuria, no hematuria Musculoskeletal- no arthralgias, no myalgias Derm- no rashes, no new skin lesions, no changing skin lesions Hematologic- no unusual bruising, no unusual bleeding Lymphatics- no adenopathy Endocrine- no polyuria or polydipsia; no heat or cold intolerance Neuro- no headaches, no focal neurologic symptoms Psych- no anxiety, no depression Physical Exam Vital Signs Date Time Temp Pulse Resp B/P (MAP) Pulse Ox O2 Delivery O2 Flow Rate FiO2 05/11/17 12:00 107 16 119/66 97 Room Air 05/11/17 11:27 108 05/11/17 11:13 109 18 124/69 97 Room Air 05/11/17 11:05 97 Room Air 05/11/17 10:07 108 18 136/68 97 Room Air 05/11/17 09:11 112 05/11/17 08:39 36.2 121 20 102/59 97 Room Air General Appearance: + pertinent finding (appears weak but alert, oriented x 3, not in distress) Head: normocephalic, atraumatic Eyes: normal inspection, PERRL, EOMI, sclerae normal ENT: + nasal drainage, + pharyngeal erythema ((+) dried blood in the nasopharynx), + pertinent finding ((+) yellow discharge) Neck: supple, no adenopathy, thyroid normal, no JVD, trachea midline Respiratory/Chest: chest non-tender, lungs clear, normal breath sounds, no respiratory distress, no accessory muscle use Cardiovascular: no edema, no JVD, no murmur, + tachycardia Abdomen/GI: normal bowel sounds, non tender, soft Back: normal inspection, no CVA tenderness Extremities/Musculoskelatal: normal inspection, no calf tenderness, no pedal edema Neurologic/Psych: poiser II-XII nml as tested, no motor/sensory deficits, alert, normal mood/affect, oriented x 3 Skin: normal color, warm/dry, no rash Lymphatic: no adenopathy Diagnostics Laboratory Results Results Past 24 Hours Test 05/11/17 09:37 05/11/17 11:48 05/11/17 11:50 Range/Units White Blood Count 10.68 4.8-10.8 K/uL Red Blood Count 3.86 4.7-6.1 M/uL Hemoglobin 10.5 14.0-18.0 g/dL Hematocrit 31.5 42-52 % Mean Corpuscular Volume 81.6 80-100 fL Mean Corpuscular Hemoglobin 27.2 25-34 pg Mean Corpuscular Hemoglobin Concent 33.3 32-36 g/dl Platelet Count 286 130-400 K/uL Mean Platelet Volume 9.5 7.4-10.4 fL Neutrophils (%) (Auto) 86.7 % Lymphocytes (%) (Auto) 6.5 % Monocytes (%) (Auto) 5.5 % Eosinophils (%) (Auto) 0.1 % Basophils (%) (Auto) 0.1 % Neutrophils # (Auto) 9.26 1.4-6.5 K/uL Lymphocytes # (Auto) 0.69 1.2-3.4 K/uL Monocytes # (Auto) 0.59 0.11-0.59 K/uL Eosinophils # (Auto) 0.01 0-0.5 K/uL Basophils # (Auto) 0.01 0-0.2 K/uL RDW Standard Deviation 46.5 36.4-46.3 fL RDW Coefficient of Variation 15.6 11.5-14.5 % Immature Granulocyte % (Auto) 1.1 % Immature Granulocyte # (Auto) 0.12 0.00-0.02 K/uL Prothrombin Time 85.2 9.0-12.0 SECONDS Prothromb Time International Ratio 7.3 0.9-1.1 Activated Partial Thromboplast Time 66.1 21.0-31.0 SECONDS Partial Thromboplastin Ratio 2.5 Sodium Level 133 136-145 mmol/L Potassium Level 4.2 3.5-5.1 mmol/L Chloride Level 98 98-107 mmol/L Carbon Dioxide Level 21 21-32 mmol/L Anion Gap 14.0 3-11 mmol/L Blood Urea Nitrogen 40 7-18 mg/dl Creatinine 1.30 0.60-1.40 mg/dl Est Creatinine Clear Calc Drug Dose 57.9 ml/min Estimated GFR () 65.9 Estimated GFR (Non- 56.9 BUN/Creatinine Ratio 31.0 10-20 Random Glucose 208 70-99 mg/dl Calcium Level 9.2 8.5-10.1 mg/dl Magnesium Level 1.7 1.8-2.4 mg/dl Total Bilirubin 0.5 0.2-1 mg/dl Aspartate Amino Transf (AST/SGOT) 14 15-37 U/L Alanine Aminotransferase (ALT/SGPT) 16 12-78 U/L Alkaline Phosphatase 91 45-117 U/L Troponin I < 0.015 0-0.045 ng/ml Total Protein 6.6 6.4-8.2 gm/dl Albumin 3.0 3.4-5.0 gm/dl Globulin 3.6 2.5-4.0 gm/dl Albumin/Globulin Ratio 0.8 0.9-2 Thyroid Stimulating Hormone (TSH) 1.850 0.300-4.500 uIu/ml Microbiology Results 05/11/17 Blood Culture, Ordered Pending 05/11/17 Blood Culture, Ordered Pending Diagnostic Radiology CT head 1. No acute intracranial pathology. 2. Stable appearance of the destructive skull base mass, most consistent with a metastatic lesion. 3. New layering fluid in the left maxillary sinus in addition to chronic paranasal sinus and nasopharyngeal obstruction. Layering fluid could suggest acute sinusitis. Impression Assessment and Plan 66 year old male with history of 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 ENLARGING NASOPHARYNGEAL/BASE OF THE SKULL MASS, METS FROM RENAL CELL CA WITH SUPERIMPOSED SINUSITIS - discussed with Dr. Andrews, mass has increased in size compared to last imaging a few months back discussed with family and patient at length, they would prefer to continue with care here in [facility] and will call their Oncologist in [place] tomorrow - continue IV Zosyn and supportive care for now INR reversed with coumadin DEHYDRATION FROM POOR ORAL INTAKE - crea slightly higher - IV fluids POOR ORAL INTAKE, LIKELY FROM NASOPHARYNGEAL MASS, POSSIBLE DYSPHAGIA FROM RADIATION - Speech therapy and GI consulted ELEVATED INR - from Vitamin K deficiency? - plt, d dimer, fibrin ok - given Vitamin K po discussed with Dr. Restrepo HYPONATREMIA - likely from hypovolemia - IV NSS monitor Na q4 HYPOMAGNESEMIA - IV Mg RENAL CELL CA WITH BRAIN METS - follows with [place] - on Dexamethasone taper DM 2 - ISS for now HTN - hold Lisinopril, ASA DVT prophylaxis SCDs FULL CODE Disposition pending discussed care at length with , daughter and patient at length, all questions answered they prefer to stay in [facility] for further care, made aware that patient may be best to go to [place] for Tertiary Level of Care and continuity of care, they prefer to continue with current treatment here in [facility] Advanced Directives Existing Living Will: Yes Existing Power of Electrician Constructor Supervisor: Yes (TITA ) VTE Prophylaxis VTE Risk Assessment Done? Y/N: Yes Risk Level: High Given or contraindicated: SCD's
[2017-05-11] MEDS ORDERED: GLUCAGON FOR INJ 1 MG VIAL SQ PRN (12:45)
[2017-05-11] MEDS ORDERED: GLUCOSE 10 TABS/TUBE PO PRN (12:45)
[2017-05-11] MEDS ORDERED: GLUCOSE 40% GEL 15 GM TUBE PO PRN (12:45)
[2017-05-11] MEDS ORDERED: DEXTROSE 50% 50 ML SYR IV PRN (12:45)
[2017-05-11] MEDS ORDERED: PIPERACILL/TAZOBAC CONSULT ACTIVE PRN (13:30)
[2017-05-11] MEDS: SODIUM CHLORIDE 0.9% 1000ML 1,000 ML IV SCH ×2 (13:52→20:50)
[2017-05-11] MEDS ORDERED: PIPERACILL/TAZOBAC IV 4.5 GM in DEXTROSE 5% 100ML IV ONE (14:00)
[2017-05-11] MEDS: HYDROmorphone INJ 0.5 MG/0.5 ML SYR IV PRN ×3 (14:02→23:30)
--- NOTE | 2017-05-11 14:17 | Gastrointestinal Consultation ---
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 Pt had been managed by ENT, rad/onc, heme/onc at [facility]. He had underwent XRT treatments, last on 04/19. Hasn't started chemo yet. He is a poor historian, defers to to provide hx. (Eloina) reports pt had been c/o headaches which usually follows 2 days after XRT. He previously takes Oxycodone up 4 a day. He's also having increased trouble w swallowing pills and solid foods since the XRT. Feels like things are getting stuck on throat. Not having sore throat or painful swallowing though. In last couple of weeks, noticed pt to develop greenish nasal DC, and he's been coughing up yellow/green phlegm. Pt denies feeling nauseated but when he's coughing up phlegm it causes him to want to vomit. His appetite is also getting poor given trouble swallowing and now having post nasal gtt, phlegm. He never c/o abd pain, diarrhea, or rectal bleeding. VS, labs, chart reviewed. H/H 10.5, 31.5. INR 7.3, no anticoagulations on home meds list. CMP showed elevated BUN of 40 but normal Cr 1.3. Head CT: 1. No acute intracranial pathology. 2. Stable appearance of the destructive skull base mass, most consistent with a metastatic lesion. 3. New layering fluid in the left maxillary sinus in addition to chronic paranasal sinus and nasopharyngeal obstruction. Layering fluid could suggest acute sinusitis. CXR: unremarkable. Past Medical/Surgical History Medical Problems: (1) Dehydration Status: Acute (2) Dehydration Status: Acute (3) Double vision Status: Acute (4) Elevated INR Status: Acute (5) Epistaxis Status: Acute (6) Epistaxis Status: Acute (7) Metastatic disease Status: Acute (8) Pharyngeal mass Status: Acute (9) Radiation adverse effect Status: Acute (10) Sinusitis Status: Acute (11) Tachycardia Status: Acute Past Medical History: See above. Past Surgical History: Jaw surgery Family History Cancer Diabetes mellitus FHx: gallbladder disease Hypertension Social History Smoking Status: Former Smoker Drug Use: none Marital Status: Housing Status: lives with significant other Occupation Status: retired Allergies Coded Allergies: No Known Allergies (Unverified , 05/11/17) Current Medications Home Meds and Scripts Medications Dose Route/Sig Max Daily Dose Days Date Category Dose Instructions Decadron (Dexamethasone) 4 Mg Tab 4 Tab PO UD 04/26/17 Reported as directed for taper starting 05/11/17 2mg(0.5tab) every other day for 7 days then done with taper Zofran Odt (Ondansetron HCl) 8 Mg Soltab 8 Mg SL Q8 PRN 04/24/17 Reported Lantus (Insulin Glargine) 100 Unit/Ml Inj 12 Units SC QPM 04/24/17 Reported Bupropion Hcl Er (Bupropion Hcl) 100 Mg Tab 100 Mg PO BID 04/24/17 Reported Zoloft (Sertraline Hcl) 100 Mg Tab 300 Mg PO DAILY 04/24/17 Reported Lisinopril 20 Mg Tab 20 Mg PO DAILY 04/24/17 Reported Ativan (Lorazepam) 1 Mg Tab 1 Mg PO HS 04/03/17 Reported MAY TAKE UP TO TID IF NEEDED. Aspirin Ec (Aspirin) 81 Mg Tab 81 Mg PO DAILY 02/17/17 Reported Lipitor (Atorvastatin) 40 Mg Tab 40 Mg PO DAILY 02/17/17 Reported Review of Systems Constitutional: No fever, No chills ENT: + see HPI, + nasal symptoms, + trouble swallowing, No sore throat, No pain on swallowing Respiratory: + cough, + sputum, No shortness of breath Cardiac: No chest pain Abdomen: No pain, No nausea, No vomiting Endo: + fatigue Physical Exam Date Time Temp Pulse Resp B/P (MAP) Pulse Ox O2 Delivery O2 Flow Rate FiO2 05/11/17 12:41 36.6 104 16 122/76 (91) 92 Room Air 05/11/17 12:00 107 16 119/66 97 Room Air 05/11/17 11:27 108 05/11/17 11:13 109 18 124/69 97 Room Air 05/11/17 11:05 97 Room Air 05/11/17 10:07 108 18 136/68 97 Room Air 05/11/17 09:11 112 05/11/17 08:39 36.2 121 20 102/59 97 Room Air General Appearance: WD/WN, no apparent distress Eyes: normal inspection, PERRL, EOMI ENT: + pertinent finding (brownish dried matrieal on pharynx, ? old blood , no signs of thrush) Neck: supple, no JVD, trachea midline Respiratory/Chest: no respiratory distress, no accessory muscle use, + decreased breath sounds Cardiovascular: regular rate, rhythm, no gallop, no murmur Abdomen: normal bowel sounds, non tender, soft Extremities: normal inspection, no pedal edema, no calf tenderness Neurologic/Psych: alert, normal mood/affect, oriented x 3 Skin: normal color, no jaundice, no rash Laboratory Results Last 24 Hours Test 05/11/17 09:37 05/11/17 13:35 White Blood Count 10.68 K/uL Red Blood Count 3.86 M/uL Hemoglobin 10.5 g/dL Hematocrit 31.5 % Mean Corpuscular Volume 81.6 fL Mean Corpuscular Hemoglobin 27.2 pg Mean Corpuscular Hemoglobin Concent 33.3 g/dl Platelet Count 286 K/uL Mean Platelet Volume 9.5 fL Neutrophils (%) (Auto) 86.7 % Lymphocytes (%) (Auto) 6.5 % Monocytes (%) (Auto) 5.5 % Eosinophils (%) (Auto) 0.1 % Basophils (%) (Auto) 0.1 % Neutrophils # (Auto) 9.26 K/uL Lymphocytes # (Auto) 0.69 K/uL Monocytes # (Auto) 0.59 K/uL Eosinophils # (Auto) 0.01 K/uL Basophils # (Auto) 0.01 K/uL RDW Standard Deviation 46.5 fL RDW Coefficient of Variation 15.6 % Immature Granulocyte % (Auto) 1.1 % Immature Granulocyte # (Auto) 0.12 K/uL Prothrombin Time 85.2 SECONDS Prothromb Time International Ratio 7.3 Activated Partial Thromboplast Time 66.1 SECONDS Partial Thromboplastin Ratio 2.5 Sodium Level 133 mmol/L Potassium Level 4.2 mmol/L Chloride Level 98 mmol/L Carbon Dioxide Level 21 mmol/L Anion Gap 14.0 mmol/L Blood Urea Nitrogen 40 mg/dl Creatinine 1.30 mg/dl Est Creatinine Clear Calc Drug Dose 57.9 ml/min Estimated GFR () 65.9 Estimated GFR (Non- 56.9 BUN/Creatinine Ratio 31.0 Random Glucose 208 mg/dl Calcium Level 9.2 mg/dl Magnesium Level 1.7 mg/dl Total Bilirubin 0.5 mg/dl Aspartate Amino Transf (AST/SGOT) 14 U/L Alanine Aminotransferase (ALT/SGPT) 16 U/L Alkaline Phosphatase 91 U/L Troponin I < 0.015 ng/ml Total Protein 6.6 gm/dl Albumin 3.0 gm/dl Globulin 3.6 gm/dl Albumin/Globulin Ratio 0.8 Thyroid Stimulating Hormone (TSH) 1.850 uIu/ml Impression Patient is a 66 year old male w L renal ca, mets to lungs and skull undergoing XRT brought in for suspected dehydration. His last XRT was on 04/19, no chemo therapy yet. He had been c/o EASTON usually 2 days after XRT, and poor appetite which seems to be multifactorial - having trouble w solid meals & pills getting stuck on throat (suspect having radiation induced esophagitis) and nasal congestion, discharge and productive cough. It seems that his phlegm accumulation and coughing are causing him to be nauseated per his 's observation. Head CT showing acute sinusitis Plan - Defer sinusitis management to primary team; ENT consulted - IVF support - Start PPI BID; magic swizzle - Would re-eval after sinusitis resolve to see if EGD eval would be indicated to r/o jung esophagitis.
[2017-05-11 14:21] LABS: BUN/CREATININE RATIO 33.8 (10-20); CALCIUM 9.1 mg/dl (8.5-10.1); CREATININE 1.1 mg/dl (0.60-1.40); POTASSIUM 4.2 mmol/L (3.5-5.1)
[2017-05-11 14:26] LABS: PARTIAL THROMBOPLASTIN RATIO 2.8; PROTHROMBIN TIME (PATIENT) 76.2 SECONDS (9.0-12.0)
[2017-05-11 14:50] LABS: INR 6.6 (0.9-1.1)
[2017-05-11] MEDS ORDERED: PHYTONADIONE 5 MG TAB PO ONE ×2 (15:15→19:00)
[2017-05-11] MEDS ORDERED: MAGIC SWIZZLE PO SCH (16:00)
[2017-05-11] MEDS: LIDOCAINE HCL 2% VISCOUS SOLN 60 ML, DiphenhydrAMINE HCL SYRUP 150 MG, ALUMINUM/MAGNESI... MT SCH ×4 (16:16)
[2017-05-11 16:18] LABS: BUN/CREATININE RATIO 32.7 (10-20); CREATININE 1.1 mg/dl (0.60-1.40); POTASSIUM 4.1 mmol/L (3.5-5.1)
[2017-05-11 16:30] LABS: PROTHROMBIN TIME (PATIENT) 76.2 SECONDS (9.0-12.0)
[2017-05-11] MEDS ORDERED: INSULIN ASPART 100 UNITS/ML 3 ML PEN SC SCH (16:30)
[2017-05-11 16:32] LABS: INR 6.6 (0.9-1.1)
[2017-05-11 17:38] LABS: FIBRINOGEN* 555 mg/dl (184-400)
--- NOTE | 2017-05-11 18:02 | ENT CONSULTATION ---
DATE OF CONSULTATION: 05/11/2017 ADDENDUM PHYSICAL EXAMINATION: GENERAL: On physical examination, this is an elderly white male in no acute distress who appears chronically ill. He is currently afebrile. VITAL SIGNS: Stable. However, he did have mild tachycardia from 11:00 a.m. to 1:00 p.m. He is satting 93% on room air and is ranged from 92-97% on room air. HEENT: His external auditory canals and tympanic membranes are clear bilaterally. He is grossly hard of hearing. He is wearing a patch over his right eye due to the diplopia. This was removed. The patient has disconjugate gaze. His pupils are equal, round and reactive to light. 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 It is difficult to ascertain which cranial nerves are involved due to his significant disconjugate gaze as well as difficulty tracking my finger with his eyes. The nasal examination on anterior rhinoscopy reveals that the left nasal cavity is filled with purulent material and there is significant mucosal congestion. On the right hand side, there is no significant mucosal congestion. Oral cavity and oropharyngeal examination reveals very dry mucous membranes with dried blood coating his posterior pharyngeal wall. There are no mucosal lesions or masses. After administration of topical lidocaine and Afrin to the right nasal cavity, diagnostic nasal endoscopy was performed with a flexible laryngoscope. This unfortunately reveals tumor filling the nasopharynx and even spilling into the right nasal cavity. There is some dried purulent secretions and dried blood covering this mass. NECK: Reveals no lymphadenopathy, thyroid nodularity, or masses. Facial nerve function is normal bilaterally. NEUROLOGICAL: The patient is awake and alert and oriented x3.
--- NOTE | 2017-05-11 18:18 | Medical Consult ---
Consultation Date of Consultation: May 11, 2017. Attending Physician: Loy Roberts MD History of Present Illness Hematology/Oncology consult: Evaluation management of elevated PT and PTT in in known case of metastatic kidney cancer. Date of consultation: 05/11/2017 Consult requested by consult requested by Dr. Roberts. 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 Had a significant radiation induced the changes in the same region in the nasopharynx, he could not eat well for the last several weeks, lost significant weight, no new cardiac or pulmonary symptoms, no bleeding from any sites, no bruising, he is not on any anticoagulant treatment other than taking aspirin, I also inquired about taking any anticoagulant treatment by the family members and they say no. Now he is admitted for poor oral intake, dehydration, worsening renal function test, found to have significantly elevated PT and PTT for the 1st time. Earlier he had similar blood workup done in March, which showed normal findings. Diagnosis and workup of right kidney carcinoma: -he presented with diplopia and blurriness of the vision earlier in February,, CT scan of the head done at that time showed nasopharyngeal mass. -biopsy from the nasopharyngeal mass done on 02/18/2017 showed some poorly differentiated carcinoma, that report has been amended , final pathology--> metastatic renal cell carcinoma. -PET-CT scan done on 03/05/2017 showed large left kidney mass, bilateral lung nodules, nasopharyngeal mass, periparotid lymphadenopathy. -left kidney biopsy done on 03/18/2017 showed renal cell carcinoma clear cell type. -he completed radiation treatment of nasopharyngeal mass and the lymph node between 04/05/2017-04/19/2017 at [facility]. He follows up with medical oncologist Dr. montelongo at [facility] and they are planning to start him on Pazopanib, he already has it at home but has not been started, REVIEW OF SYSTEMS: GENERAL: He lost about 40 to 50 lb since February,, feeling quite weak and tired, generalized weakness present, history of fall present at home, no fever or chills at present. SKIN: No skin rash, no bruising. HEAD: No new headache, no dizziness. EYES: No recent change in the vision, no diplopia, EARS: No earache no tinnitus, NOSE: Epistaxis intermittently present, foul-smelling present,, greenish yellow discharge from the nose present MOUTH: Shortness no mouth present, significant dysphagia present following recent radiation treatment to the nasopharyngeal mass, NECK: No lumps, No swelling in thyroid area. No stiffness. PULMONARY: Cough present, No shortness of breath at rest, no hemoptysis, no chest pain, No wheezing. CARDIOVASCULAR: No anginal chest pain, no PND, no orthopnea. No palpitation, no leg edema. No syncope. GASTROINTESTINAL: No abdominal pain, mild nausea present, vomiting after eating some food present. No diarrhea, No constipation. No blood in stool or black tarry stools. No abdominal distention. UROLOGIC: No burning urination. No hematuria. MUSCULOSKELETAL: No joint pain, No joint swelling, no muscle weakness. HEMATOLOGIC: No anemia, no bleeding disorder, No bruising. NEUROLOGIC: No seizures, no focal weakness, no speech difficulty, No memory disturbances. No tingling or numbness of the extremities. PSYCHIATRIC: No depression. No anxiety. No psychosis. SLEEP: No sleep disorder. Past medical and surgical history: -diabetes mellitus, anxiety, depression, hypertension, kidney cancer as described above. Social history: Ex smoker, no ETOH abuse. Family history: Not significant for his cancer diagnosis. Medications: Please review his chart for detailed list of medication -started him on oral vitamin K today Allergies: None On exam: - Alert and oriented x3, thin built man, not in any distress. - HEENT: no icterus, no pallor, Throat: Normal. - Neck: No palpable cervical lymphadenopathy. - Abdomen: soft, nontender, no hepatomegaly, no splenomegaly. - No focal neuro deficit. - Extremities: no finger clubbing, no leg edema. Lab: -WBC 10,000, H&H of 10.5/31, Platelet count of 286,000 (05/11/2017) -BUN/Creat: 40/1.3, calcium 9.2, magnesium 1.7, AST 14, ALT 16, alkaline phosphatase 91, Total bilirubin: 0.5 (05/11/2017) -PT 11.2, INR 1.0, PTT 31.5 (04/03/2017). -PT 85.2, INR 7.3, PTT 66 seconds (05/11/2017) -repeat coagulation testing done on the same day showed PT of 76 seconds, INR 6.6, P 70 1.6 seconds (05/11/2017). Hi pain fibrinogen level--> find 55, FDP less than 10, D-dimer 250 (which is in normal range). Imaging: -CT scan of the head done without intravenous contrast on 05/11/2017 showed no intracranial abnormality, new relating fluid in the left maxillary sinus in addition to the chronic paranasal sinus and nasopharyngeal obstruction. ASSESSMENT AND PLAN: 66-year-old male, a case of clear cell carcinoma of the left kidney (with metastatic disease involving the lungs), he presented with diplopia and found to have large a nasopharyngeal mass which is tender to be metastatic kidney cancer involving the nasopharynx, he completed radiation treatment to that area, still complains of local symptoms, has frequent sinus discharge, seen by ENT today, appears to be further progression of the disease in the nasopharynx noted, admitted for dehydration, worsening renal function test, found to have significant prolonged PT and PTT which was normal recently in March,, no evidence of DIC noted, normal platelet count noted, no bleeding from any sites, no increasing bruising, he is not on any anticoagulant treatment other than taking aspirin therapy. Mixing study has been ordered, result pending. His liver function test is in normal range but it appears that he may have vitamin K deficiency because of poor oral intake for the last one month, 50 lb weight loss noted since the diagnosis of kidney cancer. Started him on oral vitamin K supplementation, 10 mg per day for 3 days and will see how he responds with that. Regarding kidney cancer treatment, he follows up with medical oncologist at [facility], Dr. Montelongo, they plan to start TKI in the form of Pazopanib but he could not swallow quite well since the radiation treatment was started, so it has not been started. He will have swallowing study soon for further evaluation. He will continue to have follow-up with medical oncologist at [facility]. Thanks for the consultation. Dr. Fabricio Restrepo Hem/Onc (This note was completed using the dictation program Fluency Direct. As such, there may be misspellings, word substitutions, or other variations that should not change the essence of the clinical content of this encounter note. If there is need for further clarification, please direct questions to the provider listed above.) Past Medical/Surgical History Medical Problems: (1) Dehydration Status: Acute (2) Dehydration Status: Acute (3) Double vision Status: Acute (4) Elevated INR Status: Acute (5) Epistaxis Status: Acute (6) Epistaxis Status: Acute (7) Metastatic disease Status: Acute (8) Pharyngeal mass Status: Acute (9) Radiation adverse effect Status: Acute (10) Sinusitis Status: Acute (11) Tachycardia Status: Acute Family History Cancer Diabetes mellitus FHx: gallbladder disease Hypertension Social History Smoking Status: Former Smoker Drug Use: none Marital Status: Housing Status: lives with significant other Occupation Status: retired Allergies Coded Allergies: No Known Allergies (Unverified , 05/11/17) Current Inpatient Medications Current Inpatient Medications Medications (Trade) Dose Ordered Sig/Cristhian Route Start Time Stop Time Status Last Admin Dose Admin Acetaminophen (Tylenol Tab) 650 mg Q4H PRN PO 05/11/17 11:00 06/10/17 10:59 Sodium Chloride 1,000 ml @ 125 mls/hr Q8H IV 05/11/17 12:30 06/10/17 12:29 05/11/17 13:52 125 MLS/HR Insulin Aspart (novoLOG ASPART) SLIDING SCALE If C... ACHS SC 05/11/17 16:30 06/10/17 16:29 Glucose (Glucose 40% Gel) 15-30 GRAMS 15 GRAMS... UD PRN PO 05/11/17 12:45 06/10/17 12:44 Glucose (Glucose Chew Tab) 4-8 Tablets 4 Tabl... UD PRN PO 05/11/17 12:45 06/10/17 12:44 Dextrose (Dextrose 50% 50ML Syringe) 25-50ML OF 50% DW IV FOR... UD PRN IV 05/11/17 12:45 06/10/17 12:44 Glucagon (Glucagon Inj) 1 mg UD PRN SQ 05/11/17 12:45 06/10/17 12:44 Bupropion HCl (Wellbutrin-Sr Tab) 100 mg BID PO 05/11/17 21:00 06/10/17 20:59 Dexamethasone (Decadron Tab) 2 mg Q2D@0900 PO 05/13/17 09:00 05/18/17 23:59 Lorazepam (Ativan Tab) 1 mg HS PO 05/11/17 21:00 06/10/17 20:59 Sertraline HCl (Zoloft Tab) 300 mg DAILY PO 05/12/17 09:00 06/11/17 08:59 Piperacillin Sod/ Tazobactam Sod 4.5 gm/Dextrose 120 ml @ 30 mls/hr Q8H IV 05/11/17 20:00 05/21/17 11:59 Piperacillin Sod/ Tazobactam Sod (Consult) 1 ea UD PRN N/A 05/11/17 13:30 06/10/17 13:29 Hydromorphone HCl (Dilaudid Inj) 0.5 mg Q4H PRN IV 05/11/17 14:00 05/25/17 13:59 05/11/17 14:02 0.5 MG Pantoprazole Sodium 40 mg/ Syringe 10 ml @ 5 mls/min DAILY@ IV 05/11/17 21:00 06/10/17 20:59 Lidocaine HCl/ Diphenhydramine HCl/Al Hydroxide/ Mg Hydroxide/ Glycerin/Barcode 3XDQ4 MT 05/11/17 16:00 06/10/17 15:59 05/11/17 16:16 5 ML Physical Exam Date Time Temp Pulse Resp B/P (MAP) Pulse Ox O2 Delivery O2 Flow Rate FiO2 05/11/17 14:55 36.8 87 18 122/73 (89) 93 Room Air 05/11/17 12:41 36.6 104 16 122/76 (91) 92 Room Air 05/11/17 12:00 107 16 119/66 97 Room Air 05/11/17 11:27 108 05/11/17 11:13 109 18 124/69 97 Room Air 05/11/17 11:05 97 Room Air 05/11/17 10:07 108 18 136/68 97 Room Air 05/11/17 09:11 112 05/11/17 08:39 36.2 121 20 102/59 97 Room Air Laboratory Results Last 24 Hours Test 05/11/17 09:37 05/11/17 13:35 05/11/17 15:50 White Blood Count 10.68 K/uL Red Blood Count 3.86 M/uL Hemoglobin 10.5 g/dL Hematocrit 31.5 % Mean Corpuscular Volume 81.6 fL Mean Corpuscular Hemoglobin 27.2 pg Mean Corpuscular Hemoglobin Concent 33.3 g/dl Platelet Count 286 K/uL Mean Platelet Volume 9.5 fL Neutrophils (%) (Auto) 86.7 % Lymphocytes (%) (Auto) 6.5 % Monocytes (%) (Auto) 5.5 % Eosinophils (%) (Auto) 0.1 % Basophils (%) (Auto) 0.1 % Neutrophils # (Auto) 9.26 K/uL Lymphocytes # (Auto) 0.69 K/uL Monocytes # (Auto) 0.59 K/uL Eosinophils # (Auto) 0.01 K/uL Basophils # (Auto) 0.01 K/uL RDW Standard Deviation 46.5 fL RDW Coefficient of Variation 15.6 % Immature Granulocyte % (Auto) 1.1 % Immature Granulocyte # (Auto) 0.12 K/uL Prothrombin Time 85.2 SECONDS 76.2 SECONDS 76.2 SECONDS Prothromb Time International Ratio 7.3 6.6 6.6 Activated Partial Thromboplast Time 66.1 SECONDS 71.6 SECONDS 71.6 SECONDS Partial Thromboplastin Ratio 2.5 2.8 Sodium Level 133 mmol/L 133 mmol/L 134 mmol/L Potassium Level 4.2 mmol/L 4.2 mmol/L 4.1 mmol/L Chloride Level 98 mmol/L 102 mmol/L 103 mmol/L Carbon Dioxide Level 21 mmol/L 21 mmol/L 21 mmol/L Anion Gap 14.0 mmol/L 10.0 mmol/L 10.0 mmol/L Blood Urea Nitrogen 40 mg/dl 37 mg/dl 36 mg/dl Creatinine 1.30 mg/dl 1.10 mg/dl 1.10 mg/dl Est Creatinine Clear Calc Drug Dose 57.9 ml/min 68.4 ml/min 68.4 ml/min Estimated GFR () 65.9 80.6 80.6 Estimated GFR (Non- 56.9 69.6 69.6 BUN/Creatinine Ratio 31.0 33.8 32.7 Random Glucose 208 mg/dl 156 mg/dl 145 mg/dl Calcium Level 9.2 mg/dl 9.1 mg/dl 9.0 mg/dl Magnesium Level 1.7 mg/dl Total Bilirubin 0.5 mg/dl Aspartate Amino Transf (AST/SGOT) 14 U/L Alanine Aminotransferase (ALT/SGPT) 16 U/L Alkaline Phosphatase 91 U/L Troponin I < 0.015 ng/ml Total Protein 6.6 gm/dl Albumin 3.0 gm/dl Globulin 3.6 gm/dl Albumin/Globulin Ratio 0.8 Thyroid Stimulating Hormone (TSH) 1.850 uIu/ml Osmolality 285 mOsm/kg Fibrinogen 555 mg/dl Fibrin Degradation Products <10 mcg/ml D-Dimer 250 ug/L FEU
--- NOTE | 2017-05-11 18:19 | ENT CONSULTATION ---
DATE OF CONSULTATION: 05/11/2017 OTOLARYNGOLOGY HEAD AND NECK SURGERY INPATIENT CONSULTATION I have been asked by Dr. 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 He initially presented to [facility] in February of 2017 and was found to have a nasopharyngeal lesion on a CT scan of the sinuses that showed extension into the left sphenoid sinus and left posterior pharynx with considerable bony destructive changes in the clivus as well as the left mastoid region. He was transferred to [facility] and underwent an eventual biopsy by Dr. Gilbert Franklin in otolaryngology and initially, the pathology was not able to be determined. He had subsequent workup including a PET scan which revealed a left renal mass as well as likely metastases involving his lungs. He underwent a left renal biopsy, which showed renal cell carcinoma and putting it all together, he was noted to have metastatic renal cell carcinoma. He underwent initial radiation treatment and completed this treatment on 04/19/2017. He has all of his oncological care done at [facility]. He is supposed to take a medicine called Votrient, which appears tyrosine kinase inhibitor, but he has been too ill to do so. I believe his family has been told that this is palliative treatment as there is likely not going to be a cure for his widespread metastatic disease. I have been consulted by the hospitalist after he had a CT of the head done today, which showed "nasopharyngeal obstruction and possible sinusitis." In reviewing this CT scan as well as his prior CT scan, it appears as if there is progression of his tumor with now complete obstruction of his nasopharynx by soft tissue as well as some further involvement of his left sphenoid sinus, mastoid air cells, clivus, and the skull base. He has a mild amount of fluid within his left maxillary sinus. The patient has had purulent secretions as well as worsening headache. His white blood cell count is normal at 10.68. He is anemic with a hematocrit of 31.5. Reportedly, he tolerated the radiation fairly well with some mucositis and dry mucous membranes with some dysphagia. He has been admitted with dehydration and acute renal failure. Since he was seen in the Emergency Room, he was given IV fluids, morphine, antibiotics consisting of Rocephin, and magnesium. The patient was admitted for IV hydration. The patient wears an eye patch on his right eye due to diplopia from his skull based tumor. Much of the history is obtained from the patient's daughter, Jeanette, who is very helpful in the history. She states that he is supposed to be seen in the oncology office in 6 weeks at [facility] after being on this Votrient. However, they have not started it since he has not been doing well with failure to thrive and decreased oral intake. He has had increased nasal secretions primarily from the left hand side as well as purulent postnasal drip. ALLERGIES: No known drug allergies. MEDICATIONS: Decadron, Zoloft, Wellbutrin, Ativan, pantoprazole, piperacillin/tazobactam, insulin sliding scale, Magic mouthwash, hydromorphone p.r.n., and acetaminophen p.r.n. PAST MEDICAL HISTORY: 1. As above. 2. Diabetes mellitus. 3. Hypertension. PAST SURGICAL HISTORY: 1. Status post left nasopharyngeal biopsy. 2. Status post left kidney biopsy. 3. Status post jaw surgery. FAMILY HISTORY: Noncontributory. SOCIAL HISTORY: The patient is a former smoker. He is . He is retired. There is no illicit drug use. REVIEW OF SYSTEMS: The patient has a headache with double vision and blurry vision. He has some purulent nasal secretions and postnasal drip. He has dry oral mucous membranes. He has decreased appetite and decreased oral intake. He does have some mild dizziness, but no vertigo. He has had intermittent bloody nasal secretions, but no obed epistaxis. His epistaxis has improved since he underwent radiation treatment. The patient has elevated INR of 7.3, PT of 85.2, and PTT of 66.1. I am suspecting that he has coagulopathy due to his malignancy. As stated above, he is anemic with a hematocrit of 31.5. He was hyponatremic with a sodium of 133. He has a BUN of 40 and a creatinine of 1.3 and likely, he is not in acute renal failure, but rather has dehydration. His magnesium was low at 1.7. His liver function tests are normal. He has hypoalbuminemia with an albumin of 3.0, likely due to his malnutrition. Once again, his imaging was reviewed with the above-mentioned findings. I believe that there is progression of his disease despite the radiologist stating that there is a stable appearance of the destructive skull base mass. I believe that it involves more of the right side than it did before with more extension of the mass to the clivus and skull base towards the right hand side and progression on the left hand side. IMPRESSION AND RECOMMENDATIONS: I had a obed discussion with the patient and his family members, who were present at the bedside. I have also had a obed discussion with Dr. Roberts. I believe that this patient has progression of his metastatic renal cell carcinoma despite radiation treatment. I believe that consideration of transfer to [facility] for further evaluation and management should be considered versus palliative care consultation. I had the obed discussion that I do not believe that his skull base tumor can be removed curatively, but perhaps it can be done in a palliative sense if necessary. However, I do not feel comfortable doing that and I defer that to the expert opinion of Dr. Gilbert Franklin at [facility]. It does appear that he has some infection, which is likely due to tumor necrosis and postradiation change. He is currently on piperacillin/tazobactam, which is an okay choice given this clinical presentation. There is no other way to relieve his nasopharyngeal obstruction other than to treat his tumor. Perhaps with hydration and nutrition, he can be at a more comfortable level, where he can receive this with Votrient. However, his overall prognosis is very poor. I will sign off on this consultation, but if you need any further assistance, please do not hesitate to contact me.
[2017-05-11 18:24] LABS: PARTIAL THROMBOPLASTIN RATIO 2.8; PAT:SHPL IMM PT 13.4 SECONDS; SHPL IMMED PT 11.9 SECONDS
[2017-05-11 18:26] LABS: SHPL 37 PT 12.1 SECONDS
[2017-05-11 18:27] LABS: MIXING STUDY INTERPRET PT PT CORRECTED; PAT:SHPL IMMED PTT 31.1 SECONDS; PT CALC 37 2.5; PTT CALC IMM 4.6; SHPL 37 PTT 27.5 SECONDS; SHPL IMMED PTT 27.8 SECONDS
[2017-05-11 18:28] LABS: MIXING STUDY INTERPRET APTT APTT CORRECTED; PAT:SHPL 37 PTT 32.2 SECONDS; PTT CALC 37 6.6
--- NOTE | 2017-05-11 18:29 | DIAGNOSTIC IMAGING REPORT ---
ULTRASOUND RIGHT UPPER QUADRANT ABDOMEN CLINICAL HISTORY: Renal cell carcinoma. COMPARISON STUDY: No priors. TECHNIQUE: Real-time, grayscale, and color flow sonography of the right upper quadrant of the abdomen was performed. Images are reviewed in the transverse and longitudinal planes. FINDINGS: Liver: The liver is top normal in size and demonstrates heterogeneously increased echotexture suggesting steatosis. There is mild nodularity of the surface contour. There is no intrahepatic biliary ductal dilatation. The main portal vein is patent. No hepatic mass lesion is identified. Gallbladder: Small foci of adenomyomatosis are suggested. The gallbladder is otherwise normal in appearance. No gallstones are identified. There is no gallbladder wall thickening or pericholecystic fluid. A sonographic Armstrong's sign is reportedly absent. The common bile duct measures up to 0.4 cm in diameter. Pancreas: Visualized portions of the pancreatic head and body are normal in appearance. The splenic vein is patent. Right kidney: Survey images of the right kidney demonstrate cortical atrophy. There is no hydronephrosis. Ascites: None. IMPRESSION: 1. Findings suggest hepatic steatosis, and mild nodularity of the hepatic surface contour suggests early changes of cirrhosis. Clinical correlation will be required. 2. No gallstones are identified. Electronically signed by: Salazar Curran M.D. 05/11/2017 6:28 PM Dictated Date/Time: 05/11/2017 6:25 PM
[2017-05-11 20:31] LABS: BUN/CREATININE RATIO 30.1 (10-20); CALCIUM 8.4 mg/dl (8.5-10.1); CREATININE 1.2 mg/dl (0.60-1.40); POTASSIUM 4.2 mmol/L (3.5-5.1)
[2017-05-11] MEDS: PIPERACILL/TAZOBAC IV 4.5 GM in DEXTROSE 5% 100ML IV SCH (20:33)
[2017-05-11] MEDS: BuPROPion SR 100 MG TABCR PO SCH (20:40)
[2017-05-11] MEDS: PANTOprazole INJ 40 MG in SYRINGE 0 ML IV SCH (20:40)
[2017-05-11] MEDS: LORAZEPAM 1 MG TAB PO SCH (20:40)
[2017-05-11 23:19] LABS: URINE APPEARANCE CLEAR (CLEAR); URINE BILIRUBIN NEG (NEG); URINE COLOR DK YELLOW; URINE EPITHELIAL CELL AUTO 0-5 /lpf (0-5); URINE NITRITE NEG (NEG); URINE PH 5.5 (4.5-7.5); URINE SPECIFIC GRAVITY 1.028 (1.000-1.030); UROBILINOGEN NEG (NEG); ZZUR CULT IF INDIC CLEAN CATCH NO
[2017-05-11 23:27] LABS: MANUAL MICROSCOPIC REQUIRED? NO; REVIEW REQ? NO
[2017-05-12] VITALS (9 sets, daily range): BP systolic 114–131; BP diastolic 66–78; PULSE 94–105; TEMP 36.6–37.3; O2SAT 92–94
[2017-05-12 00:02] LABS: BUN/CREATININE RATIO 27.6 (10-20); CALCIUM 8.6 mg/dl (8.5-10.1); CREATININE 1.2 mg/dl (0.60-1.40)
[2017-05-12] MEDS ORDERED: NURSING VERBAL MED ORDER ONE ×2 (00:45→19:00)
[2017-05-12] MEDS: PIPERACILL/TAZOBAC IV 4.5 GM in DEXTROSE 5% 100ML IV SCH ×3 (04:21→20:16)
[2017-05-12] MEDS: SODIUM CHLORIDE 0.9% 1000ML 1,000 ML IV SCH (04:21)
[2017-05-12] MEDS: HYDROmorphone INJ 0.5 MG/0.5 ML SYR IV PRN ×2 (05:23→08:54)
[2017-05-12] MEDS: INSULIN ASPART 100 UNITS/ML 3 ML PEN SC SCH ×4 (05:40→21:10)
[2017-05-12 05:49] LABS: BASO % 0.2 %; BASO ABS # 0.01 K/uL (0-0.2); EOS % 0.8 %; HEMATOCRIT 27.4 % (42-52); IG% 1.2 %; LYMPH % 11.1 %; LYMPH ABS # 0.57 K/uL (1.2-3.4); MEAN CORPUSCULAR HEMOGLOBIN 26.1 pg (25-34); MEAN CORPUSCULAR HGB CONC 31.4 g/dl (32-36); MEAN PLATELET VOLUME 9.1 fL (7.4-10.4); MONO % 7.2 %; NEUT % 79.5 %; PLATELET COUNT 205 K/uL (130-400); WHITE BLOOD COUNT 5.14 K/uL (4.8-10.8)
[2017-05-12 06:16] LABS: BUN/CREATININE RATIO 27.8 (10-20); CALCIUM 8.4 mg/dl (8.5-10.1); CREATININE 1.1 mg/dl (0.60-1.40); MAGNESIUM 1.9 mg/dl (1.8-2.4)
[2017-05-12 06:25] LABS: COMPLETE YES
[2017-05-12] MEDS: LIDOCAINE HCL 2% VISCOUS SOLN 60 ML, DiphenhydrAMINE HCL SYRUP 150 MG, ALUMINUM/MAGNESI... MT SCH ×16 (08:00→16:00)
[2017-05-12] MEDS: BuPROPion SR 100 MG TABCR PO SCH ×2 (08:16→20:17)
[2017-05-12] MEDS: PANTOprazole INJ 40 MG in SYRINGE 0 ML IV SCH ×2 (08:16→20:17)
[2017-05-12] MEDS: SERTRALINE HCL 100 MG TAB PO SCH (08:16)
[2017-05-12] MEDS ORDERED: D5W AND NSS 1,000 ML IV SCH (09:00)
[2017-05-12 09:53] LABS: INR 1.1 (0.9-1.1); PROTHROMBIN TIME (PATIENT) 12.3 SECONDS (9.0-12.0)
[2017-05-12] MEDS ORDERED: PHYTONADIONE 5 MG TAB PO ONE (10:13)
[2017-05-12] MEDS ORDERED: HYDROmorphone INJ 0.5 MG/0.5 ML SYR IV STA (10:15)
[2017-05-12] MEDS ORDERED: OXYCODONE/ACETAMINOPHEN 5-325 TAB PO PRN (10:15)
--- NOTE | 2017-05-12 11:54 | Progress Note ---
Medicine Progress Note Date & Time of Visit: May 12, 2017 at 11:51. delayed entry date of service as noted above Subjective seen with at bedside states he feels slightly better less nasal secretions, no obed bleeding noted reports moderate headache 6/10 would like to eat again, denies abdominal pain, nausea no other symptoms Objective Last 8 Hrs Date Time Temp Pulse Resp B/P (MAP) Pulse Ox O2 Delivery O2 Flow Rate FiO2 05/12/17 11:12 36.6 94 18 126/76 (93) 92 Room Air 05/12/17 08:00 92 Room Air 05/12/17 07:10 37.3 103 18 129/72 (91) 92 Room Air 05/12/17 04:00 Room Air 05/12/17 04:00 36.8 99 16 114/69 (84) 92 Room Air Physical Exam: General- oriented x 3, not in distress, appears weak Head- atraumatic Eyes- anicteric ENT- yellow nasal secretions, dried blood seen on the oropharynx Neck- supple, no JVD Lungs- clear breath sounds bilaterally Heart- regular rhythm; no murmur, normal rate Abdomen- normal bowel sounds, soft, nontender Extremities- no pretibial edema, no calf tenderness; peripheral pulses intact Neuro- alert, oriented x 3; no gross focal deficits Skin- warm & dry Laboratory Results: Last 24 Hours Test 05/11/17 13:35 05/11/17 15:50 05/11/17 18:39 05/11/17 19:54 Prothrombin Time 76.2 SECONDS 76.2 SECONDS Prothromb Time International Ratio 6.6 6.6 Activated Partial Thromboplast Time 71.6 SECONDS 71.6 SECONDS Partial Thromboplastin Ratio 2.8 2.8 Sodium Level 133 mmol/L 134 mmol/L 137 mmol/L Potassium Level 4.2 mmol/L 4.1 mmol/L 4.2 mmol/L Chloride Level 102 mmol/L 103 mmol/L 104 mmol/L Carbon Dioxide Level 21 mmol/L 21 mmol/L 24 mmol/L Anion Gap 10.0 mmol/L 10.0 mmol/L 9.0 mmol/L Blood Urea Nitrogen 37 mg/dl 36 mg/dl 36 mg/dl Creatinine 1.10 mg/dl 1.10 mg/dl 1.20 mg/dl Est Creatinine Clear Calc Drug Dose 68.4 ml/min 68.4 ml/min 62.7 ml/min Estimated GFR () 80.6 80.6 72.6 Estimated GFR (Non- 69.6 69.6 62.6 BUN/Creatinine Ratio 33.8 32.7 30.1 Random Glucose 156 mg/dl 145 mg/dl 120 mg/dl Osmolality 285 mOsm/kg Calcium Level 9.1 mg/dl 9.0 mg/dl 8.4 mg/dl PT Mixing Studies Interpretation PT CORRECTED PTT Mixing Studies Interpretation APTT CORRECTED Fibrinogen 555 mg/dl Fibrin Degradation Products <10 mcg/ml D-Dimer 250 ug/L FEU Bedside Glucose 115 mg/dl Test 05/11/17 22:30 05/11/17 23:31 05/12/17 00:02 05/12/17 05:10 Urine Color DK YELLOW Urine Appearance CLEAR Urine pH 5.5 Urine Specific [place] 1.028 Urine Protein 1+ Urine Glucose (UA) NEG Urine Ketones 1+ Urine Occult Blood NEG Urine Nitrite NEG Urine Bilirubin NEG Urine Urobilinogen NEG Urine Leukocyte Esterase NEG Urine WBC (Auto) 0 /hpf Urine RBC (Auto) 0-4 /hpf Urine Hyaline Casts (Auto) 1-5 /lpf Urine Epithelial Cells (Auto) 0-5 /lpf Urine Bacteria (Auto) NEG Sodium Level 137 mmol/L 139 mmol/L Potassium Level 4.0 mmol/L 4.0 mmol/L Chloride Level 106 mmol/L 109 mmol/L Carbon Dioxide Level 21 mmol/L 22 mmol/L Anion Gap 10.0 mmol/L 8.0 mmol/L Blood Urea Nitrogen 33 mg/dl 31 mg/dl Creatinine 1.20 mg/dl 1.10 mg/dl Est Creatinine Clear Calc Drug Dose 62.7 ml/min 66.9 ml/min Estimated GFR () 72.6 80.6 Estimated GFR (Non- 62.6 69.6 BUN/Creatinine Ratio 27.6 27.8 Random Glucose 124 mg/dl 92 mg/dl Calcium Level 8.6 mg/dl 8.4 mg/dl Bedside Glucose 115 mg/dl White Blood Count 5.14 K/uL Red Blood Count 3.30 M/uL Hemoglobin 8.6 g/dL Hematocrit 27.4 % Mean Corpuscular Volume 83.0 fL Mean Corpuscular Hemoglobin 26.1 pg Mean Corpuscular Hemoglobin Concent 31.4 g/dl Platelet Count 205 K/uL Mean Platelet Volume 9.1 fL Neutrophils (%) (Auto) 79.5 % Lymphocytes (%) (Auto) 11.1 % Monocytes (%) (Auto) 7.2 % Eosinophils (%) (Auto) 0.8 % Basophils (%) (Auto) 0.2 % Neutrophils # (Auto) 4.09 K/uL Lymphocytes # (Auto) 0.57 K/uL Monocytes # (Auto) 0.37 K/uL Eosinophils # (Auto) 0.04 K/uL Basophils # (Auto) 0.01 K/uL RDW Standard Deviation 48.0 fL RDW Coefficient of Variation 15.9 % Immature Granulocyte % (Auto) 1.2 % Immature Granulocyte # (Auto) 0.06 K/uL Basophilic Stippling OCCASIONAL Estimated Average Glucose 183 mg/dl Hemoglobin A1c 8.0 % Magnesium Level 1.9 mg/dl Test 05/12/17 05:39 05/12/17 09:30 05/12/17 11:29 Bedside Glucose 98 mg/dl 134 mg/dl Prothrombin Time 12.3 SECONDS Prothromb Time International Ratio 1.1 Date/Time Source Procedure Growth Status 05/11/17 13:48 Blood Blood Culture Pending Received 05/11/17 13:35 Blood Blood Culture Pending Received 05/11/17 19:00 Nasal MRSA DNA Surveillance Screen - Final Specimen Negative for MRSA by DNA Probe Complete Assessment & Plan 66 year old male with history of 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 ENLARGING NASOPHARYNGEAL/BASE OF THE SKULL MASS, METS FROM RENAL CELL CA WITH SUPERIMPOSED SINUSITIS - discussed with Dr. Andrews, mass has increased in size compared to last imaging a few months back discussed with family and patient at length, they would prefer to continue with care here in [facility] and update their Oncologist in [place] -- afebrile, no leukocytosis cultures pending - continue IV Zosyn Day 2 INR reversed with coumadin PRN Dilaudid and Percocet - called Dr. Montelongo- patient's oncologist in [facility] and discussed the case with him he will discuss options with their Radiation Oncologist and will call me again DEHYDRATION FROM POOR ORAL INTAKE - crea stable - continue IV fluids POOR ORAL INTAKE, LIKELY FROM NASOPHARYNGEAL MASS, POSSIBLE DYSPHAGIA FROM RADIATION - Speech therapy and GI consulted - Speech Eval performed: moist pureed diet - no further interventions for now per GI ELEVATED INR, COAGULOPATHY - from Vitamin K deficiency? - plt, d dimer, fibrin ok - given Vitamin K po Hematology consulted - Vit K 10mg po daily x 3 days ordered - INR 1 HYPONATREMIA - likely from hypovolemia - IV 1/2 NSS monitor Na HYPOMAGNESEMIA - IV Mg RENAL CELL CA WITH BRAIN METS - follows with [place] management per #1 - on Dexamethasone taper DM 2 - ISS for now HTN - hold Lisinopril, ASA DVT prophylaxis SCDs FULL CODE Disposition pending discussed care at length with , and patient at length, all questions answered they are comfortable and agreeable with plan of care Current Inpatient Medications: Current Inpatient Medications Medications (Trade) Dose Ordered Sig/Cristhian Route Start Time Stop Time Status Last Admin Dose Admin Acetaminophen (Tylenol Tab) 650 mg Q4H PRN PO 05/11/17 11:00 06/10/17 10:59 Glucose (Glucose 40% Gel) 15-30 GRAMS 15 GRAMS... UD PRN PO 05/11/17 12:45 06/10/17 12:44 Glucose (Glucose Chew Tab) 4-8 Tablets 4 Tabl... UD PRN PO 05/11/17 12:45 06/10/17 12:44 Dextrose (Dextrose 50% 50ML Syringe) 25-50ML OF 50% DW IV FOR... UD PRN IV 05/11/17 12:45 06/10/17 12:44 Glucagon (Glucagon Inj) 1 mg UD PRN SQ 05/11/17 12:45 06/10/17 12:44 Bupropion HCl (Wellbutrin-Sr Tab) 100 mg BID PO 05/11/17 21:00 06/10/17 20:59 05/12/17 08:16 100 MG Dexamethasone (Decadron Tab) 2 mg Q2D@0900 PO 05/13/17 09:00 05/18/17 23:59 Lorazepam (Ativan Tab) 1 mg HS PO 05/11/17 21:00 06/10/17 20:59 05/11/17 20:40 1 MG Sertraline HCl (Zoloft Tab) 300 mg DAILY PO 05/12/17 09:00 06/11/17 08:59 05/12/17 08:16 300 MG Piperacillin Sod/ Tazobactam Sod 4.5 gm/Dextrose 120 ml @ 30 mls/hr Q8H IV 05/11/17 20:00 05/21/17 11:59 05/12/17 11:13 30 MLS/HR Piperacillin Sod/ Tazobactam Sod (Consult) 1 ea UD PRN N/A 05/11/17 13:30 06/10/17 13:29 Pantoprazole Sodium 40 mg/ Syringe 10 ml @ 5 mls/min DAILY@09,21 IV 05/11/17 21:00 06/10/17 20:59 05/12/17 08:16 5 MLS/MIN Lidocaine HCl/ Diphenhydramine HCl/Al Hydroxide/ Mg Hydroxide/ Glycerin/Barcode [id number] MT 05/11/17 16:00 06/10/17 15:59 05/11/17 16:16 5 ML Insulin Aspart (novoLOG ASPART) SLIDING SCALE If C... Q6 SC 05/12/17 06:00 06/11/17 05:59 Dextrose/Sodium Chloride 1,000 ml @ 80 mls/hr [id number] IV 05/12/17 09:00 06/11/17 08:59 05/12/17 09:12 80 MLS/HR Oxycodone/ Acetaminophen (Percocet 5-325mg Tab) 1 tab Q4H PRN PO 05/12/17 10:15 05/26/17 10:14 Phytonadione (Mephyton Tab) 10 mg DAILY PO 05/13/17 09:00 05/13/17 09:01 Hydromorphone HCl (Dilaudid Inj) 1 mg Q4H PRN IV 05/12/17 13:00 05/25/17 13:59 Oxycodone/ Acetaminophen (Percocet 5-325mg Tab) 1 tab Q4H PRN PO 05/12/17 10:15 05/26/17 10:14 Senna/Docusate Sodium (Senokot S Tab) 1 tab QAM PO 05/13/17 09:00 06/12/17 08:59 Senna/Docusate Sodium (Senokot S Tab) 1 tab 1200 ONCE PO 05/12/17 12:00 05/12/17 12:01 Enteral Nutritional Formula (Boost Breeze Nutritional Drink) 1 box TID PO 05/12/17 14:00 06/11/17 13:59
[2017-05-12] MEDS ORDERED: D5W AND 1/2NSS 1,000 ML IV SCH (12:00)
[2017-05-12] MEDS ORDERED: DOCUSATE SODIUM/SENNA 50/8.6MG TAB PO ONE (12:00)
[2017-05-12] MEDS: HYDROmorphone INJ 1 MG/ML SYR IV PRN ×3 (13:16→20:56)
--- NOTE | 2017-05-12 13:27 | Clinical Documentation Query ---
CLINICAL DOCUMENTATION QUERY 66 year old male with history of 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 He lost about 40 to 50 lb since February,, In your clinical opinion is this patient being managed for: ( x ) Severe protein-calorie malnutrition ( ) Not Agree ( ) Other explanation of clinical findings (Please Explain) ( ) Unable to determine (Please Define) ( ) Need to Discuss The medical record reflects the following clinical findings, treatment, and risk factors. Clinical Indicators: Persistent weakness x 1 wk, 40 - 50 lb wt loss in 3 months, BMI 20, dehydration, dysphasia, vomiting/nausea, difficulty eating solid food, decreased appetite x 2 1/2 wks, dry mucus membranes Treatment: Dietary consult, boost nutrition shakes Risk Factors: Malignant neoplasms to bilat lungs, nasopharynx, brain Please clarify and document your clinical opinion in the progress notes and discharge summary. Terms such as "probable", "suspected", "likely", "questionable", "possible", or "still to be ruled out" are acceptable. IF IN AGREEMENT, YOU MUST DOCUMENT ABOVE DIAGNOSTIC STATEMENT IN DAILY PROGRESS NOTES AND DISCHARGE SUMMARY. This document is not part of the patient's record. Thank You, Maria G Foley RN [phone]
--- NOTE | 2017-05-12 13:54 | Progress Note ---
Progress Note Date of Service May 12, 2017. Progress Note ID Consult Dictated #[id number] A/P: 1.Sinusitis, obstructing metastatic disease -Continue zosyn, follow cultures and adjust abx -thank you
[2017-05-12] MEDS ORDERED: BOOST BREEZE NUTRITION DRINK 1 BOX PO SCH (14:00)
--- NOTE | 2017-05-12 14:10 | INFECT. DISEASE CONSULTATION ---
DATE OF CONSULTATION: 05/12/2017 REQUESTING PHYSICIAN: Dr. Roberts. HISTORY OF PRESENT ILLNESS: This is a 66-year-old gentleman who was admitted to the hospital after he developed increasing weakness. He has a recent diagnosis of metastatic renal cell carcinoma to the brain. He is following at [facility] for treatment of this. He recently was undergoing radiation and was to start chemotherapy; however, he had increasing weakness and subsequently presented to the ER. CAT scan was done in the Emergency Room yesterday of the head and shows stable destructive skull based mass, which is most consistent with metastatic lesion and new layering fluid in the maxillary sinus that could be suggesting acute sinusitis. There was complete obstruction of the nasopharynx due to mass. He was followed by ENT yesterday and underwent a scope, which showed significant tumor extending into the right nasopharynx with some minimal purulent material. Cultures were obtained from this. Blood cultures were also obtained in the ER. He was placed on Zosyn and remains on this empirically. It was suggested that he be transferred to [facility] for ongoing care; however, the patient declined transfer and remains here on intravenous antibiotics. Infectious diseases was consulted for sinusitis. He appears to be tolerating antibiotics well. He is afebrile and denies any fevers or chills at home. He does not admit to any sinus pressure or pain, but does admit to pain in the occipital area. He does suffer from diplopia and wears an eye patch. He does admit to having increased green to yellow nasal secretions and now with some blood tinged secretions after his scope yesterday. He denies any chest pain, cough or shortness of breath. His remaining review of systems reviewed and are unremarkable. PAST MEDICAL HISTORY: Significant for metastatic renal cell carcinoma, type 2 diabetes and hypertension. FAMILY HISTORY: Noncontributory. SOCIAL HISTORY: Significant for a history of tobacco use. He denies any alcohol or drug use. ALLERGIES: He has no known drug allergies. CURRENT MEDICATIONS: Include dexamethasone, Boost, Senokot, Dilaudid, Percocet, Zoloft, insulin, Wellbutrin, Ativan, Protonix, Zosyn and Tylenol. PHYSICAL EXAMINATION: VITAL SIGNS: He is afebrile, pulse 94, respiratory rate 18, blood pressure is 126/76 and oxygen saturation is 92% on room air. GENERAL: He is awake, alert and oriented x3. He is in no acute distress. HEENT: Mucous membranes are moist. Extraocular muscles are intact on the left. He does have an eye patch on the right eye. SKIN: Without rash. HEART: Regular. LUNGS: Clear bilaterally. ABDOMEN: Soft and nondistended. There is no edema. There are no purulent secretions on my examination. LABORATORY STUDIES: CBC today reveals a white blood cell count of 5.1, hemoglobin 8.6, and platelets are 205. Chemistry panel reveals a sodium of 139, potassium 4.0, chloride 109, bicarbonate 22, BUN 31, creatinine 1.1, and glucose is 134. LFTs are within normal limits on admission. Urinalysis was unremarkable. Blood cultures and ENT cultures are pending. IMAGING: As above. ASSESSMENT AND PLAN: Sinusitis with likely obstructive component secondary to metastatic disease. At this time, he will be maintained on Zosyn pending results of blood and nasal cultures and antibiotics will be adjusted pending additional microdata. Thank you for this consultation.
[2017-05-12] MEDS: OXYCODONE/ACETAMINOPHEN 5-325 TAB PO PRN (15:53)
[2017-05-12] MEDS: BOOST BREEZE NUTRITION DRINK 1 BOX PO SCH (17:00)
[2017-05-12] MEDS: LORAZEPAM 1 MG TAB PO SCH (20:17)
[2017-05-12] MEDS: SODIUM CHLORIDE 0.45% 1000ML 1,000 ML IV SCH (22:02)
[2017-05-13] VITALS (13 sets, daily range): BP systolic 122–135; BP diastolic 66–93; PULSE 84–115; TEMP 36.5–37; O2SAT 92–94; Ht 185.4 cm; Wt 73.2 kg
[2017-05-13] MEDS: HYDROmorphone INJ 1 MG/ML SYR IV PRN ×6 (03:03→23:03)
[2017-05-13] MEDS: PIPERACILL/TAZOBAC IV 4.5 GM in DEXTROSE 5% 100ML IV SCH ×3 (03:40→20:08)
[2017-05-13] MEDS: INSULIN ASPART 100 UNITS/ML 3 ML PEN SC SCH ×4 (06:30→21:00)
[2017-05-13 07:01] LABS: BASO % 0.2 %; BASO ABS # 0.01 K/uL (0-0.2); EOS % 0.6 %; HEMATOCRIT 23.3 % (42-52); IG% 1.1 %; LYMPH % 14.3 %; LYMPH ABS # 0.68 K/uL (1.2-3.4); MEAN CELL VOLUME 82.6 fL (80-100); MEAN CORPUSCULAR HGB CONC 32.6 g/dl (32-36); MEAN PLATELET VOLUME 8.8 fL (7.4-10.4); MONO % 5.9 %; NEUT % 77.9 %; PLATELET COUNT 186 K/uL (130-400); RED BLOOD COUNT 2.82 M/uL (4.7-6.1); WHITE BLOOD COUNT 4.76 K/uL (4.8-10.8)
[2017-05-13] MEDS: LIDOCAINE HCL 2% VISCOUS SOLN 60 ML, DiphenhydrAMINE HCL SYRUP 150 MG, ALUMINUM/MAGNESI... MT SCH ×12 (07:32→17:09)
[2017-05-13] MEDS: BOOST BREEZE NUTRITION DRINK 1 BOX PO SCH ×3 (07:36→17:00)
[2017-05-13 07:38] LABS: BUN/CREATININE RATIO 19.8 (10-20); CALCIUM 8.5 mg/dl (8.5-10.1); CREATININE 0.93 mg/dl (0.60-1.40); MAGNESIUM 1.6 mg/dl (1.8-2.4); POTASSIUM 3.8 mmol/L (3.5-5.1)
[2017-05-13] MEDS: BuPROPion SR 100 MG TABCR PO SCH ×2 (07:39→21:33)
[2017-05-13] MEDS: SERTRALINE HCL 100 MG TAB PO SCH (07:39)
[2017-05-13] MEDS: DOCUSATE SODIUM/SENNA 50/8.6MG TAB PO SCH (07:39)
[2017-05-13] MEDS: PANTOprazole INJ 40 MG in SYRINGE 0 ML IV SCH ×2 (08:04→21:33)
[2017-05-13] MEDS: ONDANSETRON INJ 2 MG/ML 2 ML VIAL IV PRN (08:28)
[2017-05-13] MEDS ORDERED: DEXAMETHASONE 4 MG TAB PO SCH (09:00)
[2017-05-13] MEDS ORDERED: PHYTONADIONE 5 MG TAB PO SCH (09:00)
[2017-05-13 10:03] LABS: COMPLETE YES
[2017-05-13] MEDS ORDERED: MAGNESIUM SULFATE 1GM / D5W 1 GM in PREMIXED IN D5W 100 ML IV SCH (12:00)
[2017-05-13] MEDS: OXYCODONE/ACETAMINOPHEN 5-325 TAB PO PRN ×3 (13:39→21:32)
[2017-05-13] MEDS: SODIUM CHLORIDE 0.45% 1000ML 1,000 ML IV SCH (13:39)
--- NOTE | 2017-05-13 14:13 | Progress Note ---
Subjective Date of Service: May 13, 2017. Subjective remains on zoysn, tolerating well. no f/c. blood cultures negative to date. ENT culture pending. no overnight events. Problem List Medical Problems: (1) Dehydration Status: Acute (2) Dehydration Status: Acute (3) Double vision Status: Acute (4) Elevated INR Status: Acute (5) Epistaxis Status: Acute (6) Epistaxis Status: Acute (7) Metastatic disease Status: Acute (8) Pharyngeal mass Status: Acute (9) Radiation adverse effect Status: Acute (10) Sinusitis Status: Acute (11) Tachycardia Status: Acute Objective Vital Signs Date Time Temp Pulse Resp B/P (MAP) Pulse Ox O2 Delivery O2 Flow Rate FiO2 05/13/17 14:05 94 Room Air 05/13/17 12:00 93 Room Air 05/13/17 10:55 36.8 101 16 130/75 (93) 92 Room Air 05/13/17 08:00 93 Room Air 05/13/17 07:44 37.0 88 18 135/70 (91) 92 Room Air 05/13/17 04:00 Room Air 05/13/17 04:00 37.0 102 18 125/74 (91) 92 05/13/17 00:00 Room Air 05/12/17 22:52 36.8 105 20 124/66 (85) 94 Room Air 05/12/17 21:05 36.7 103 18 126/78 (94) 93 Room Air 05/12/17 20:00 Room Air 05/12/17 16:00 Room Air 05/12/17 14:59 36.6 99 18 131/78 (95) 92 Room Air Laboratory Results Item Value Date Time Blood Culture - Preliminary Resulted 05/11/17 1348 Blood NO GROWTH TO DATE. Blood Culture - Preliminary Resulted 05/11/17 1335 Blood NO GROWTH TO DATE. Last 24 Hours Test 05/12/17 17:32 05/12/17 18:09 05/12/17 21:04 05/13/17 06:34 Bedside Glucose 231 mg/dl 218 mg/dl Sodium Level 136 mmol/L 135 mmol/L White Blood Count 4.76 K/uL Red Blood Count 2.82 M/uL Hemoglobin 7.6 g/dL Hematocrit 23.3 % Mean Corpuscular Volume 82.6 fL Mean Corpuscular Hemoglobin 27.0 pg Mean Corpuscular Hemoglobin Concent 32.6 g/dl Platelet Count 186 K/uL Mean Platelet Volume 8.8 fL Neutrophils (%) (Auto) 77.9 % Lymphocytes (%) (Auto) 14.3 % Monocytes (%) (Auto) 5.9 % Eosinophils (%) (Auto) 0.6 % Basophils (%) (Auto) 0.2 % Neutrophils # (Auto) 3.71 K/uL Lymphocytes # (Auto) 0.68 K/uL Monocytes # (Auto) 0.28 K/uL Eosinophils # (Auto) 0.03 K/uL Basophils # (Auto) 0.01 K/uL RDW Standard Deviation 48.5 fL RDW Coefficient of Variation 16.0 % Immature Granulocyte % (Auto) 1.1 % Immature Granulocyte # (Auto) 0.05 K/uL Red Blood Cell Morphology Unremarkable Potassium Level 3.8 mmol/L Chloride Level 105 mmol/L Carbon Dioxide Level 24 mmol/L Anion Gap 6.0 mmol/L Blood Urea Nitrogen 18 mg/dl Creatinine 0.93 mg/dl Est Creatinine Clear Calc Drug Dose 78.7 ml/min Estimated GFR () 98.8 Estimated GFR (Non- 85.2 BUN/Creatinine Ratio 19.8 Random Glucose 147 mg/dl Calcium Level 8.5 mg/dl Magnesium Level 1.6 mg/dl Test 05/13/17 07:38 05/13/17 09:23 05/13/17 11:12 Bedside Glucose 148 mg/dl 151 mg/dl Prothrombin Time 11.0 SECONDS Prothromb Time International Ratio 1.0 Assessment and Plan (1) Sinusitis Assessment & Plan: continue abx and follow final cultures
--- NOTE | 2017-05-13 14:17 | Palliative Care Progress Note ---
Palliative Care Progress Note Date of Service May 13, 2017. Subjective Pt evaluation today including: conversation w/ family (daughter, Aliyah; , Eloina), conversation w/ it solutions sales consultant (Dr. Roberts) Consult received. Met briefly and had a discussion with patient's daughter, Aliyah, who was in his room 280-2. Patient is awake, alert and oriented but is using urinal at this time. Aliyah states that patient is having a difficult time processing and absorbing all this information. Patient does not make decisions without his , Eloina, who had to step out for a while. Also, patient is hard of hearing so he should really have someone with him when being given information. Aliyah states that the patient and family know "it isn't good," and that his disease cannot be cured. They are waiting to hear what the patient's oncologist from [facility] has to say, and Dr. Roberts will be calling him tomorrow. I then called patient's , Eloina, and told her that we could formally meet and do consult tomorrow after they are able to speak with oncologist and have a chance to discuss among family-- per their wish. Family has my cell number and will to call me with time to meet tomorrow. Thank you kindly for this consult.
--- NOTE | 2017-05-13 17:37 | Progress Note ---
Medicine Progress Note Date & Time of Visit: May 13, 2017 at 17:33. Subjective seen with at bedside alert, oriented, appears a little less weak was nauseated this AM, improving headache controlled with present analgesics PRN still has some thick nasal secretions denies shortness of breath, cough no abdominal pain but does have urinary retention prefers straight cath Objective Last 8 Hrs Date Time Temp Pulse Resp B/P (MAP) Pulse Ox O2 Delivery O2 Flow Rate FiO2 05/13/17 15:53 36.8 100 16 129/93 93 0.0 05/13/17 15:15 36.6 104 18 131/77 (95) 94 Room Air 05/13/17 14:13 36.5 115 18 127/82 (97) 94 Room Air 05/13/17 14:05 94 Room Air 05/13/17 12:00 93 Room Air 05/13/17 10:55 36.8 101 16 130/75 (93) 92 Room Air Physical Exam: General- oriented x 3, not in distress, weak Eyes- anicteric ENT- yellow nasal secretions, dried blood seen on the oropharynx Neck- no JVD Lungs- clear breath sounds bilaterally, no rales/wheezes Heart- regular rhythm; no murmur, normal rate Abdomen- normal bowel sounds, soft, nontender Extremities- no pretibial edema, no calf tenderness; peripheral pulses intact Neuro- alert, oriented x 3; no gross focal deficits Skin- warm & dry Laboratory Results: Last 24 Hours Test 05/12/17 18:09 05/12/17 21:04 05/13/17 06:34 05/13/17 07:38 Sodium Level 136 mmol/L 135 mmol/L Bedside Glucose 218 mg/dl 148 mg/dl White Blood Count 4.76 K/uL Red Blood Count 2.82 M/uL Hemoglobin 7.6 g/dL Hematocrit 23.3 % Mean Corpuscular Volume 82.6 fL Mean Corpuscular Hemoglobin 27.0 pg Mean Corpuscular Hemoglobin Concent 32.6 g/dl Platelet Count 186 K/uL Mean Platelet Volume 8.8 fL Neutrophils (%) (Auto) 77.9 % Lymphocytes (%) (Auto) 14.3 % Monocytes (%) (Auto) 5.9 % Eosinophils (%) (Auto) 0.6 % Basophils (%) (Auto) 0.2 % Neutrophils # (Auto) 3.71 K/uL Lymphocytes # (Auto) 0.68 K/uL Monocytes # (Auto) 0.28 K/uL Eosinophils # (Auto) 0.03 K/uL Basophils # (Auto) 0.01 K/uL RDW Standard Deviation 48.5 fL RDW Coefficient of Variation 16.0 % Immature Granulocyte % (Auto) 1.1 % Immature Granulocyte # (Auto) 0.05 K/uL Red Blood Cell Morphology Unremarkable Potassium Level 3.8 mmol/L Chloride Level 105 mmol/L Carbon Dioxide Level 24 mmol/L Anion Gap 6.0 mmol/L Blood Urea Nitrogen 18 mg/dl Creatinine 0.93 mg/dl Est Creatinine Clear Calc Drug Dose 78.7 ml/min Estimated GFR () 98.8 Estimated GFR (Non- 85.2 BUN/Creatinine Ratio 19.8 Random Glucose 147 mg/dl Calcium Level 8.5 mg/dl Magnesium Level 1.6 mg/dl Test 05/13/17 09:23 05/13/17 11:12 05/13/17 16:09 Prothrombin Time 11.0 SECONDS Prothromb Time International Ratio 1.0 Bedside Glucose 151 mg/dl 195 mg/dl Assessment & Plan 66 year old male with history of 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 ENLARGING NASOPHARYNGEAL/BASE OF THE SKULL MASS, METS FROM RENAL CELL CA WITH SUPERIMPOSED SINUSITIS - discussed with Dr. Andrews, mass has increased in size compared to last imaging a few months back discussed with family and patient at length, they would prefer to continue with care here in [facility] and update their Oncologist in [place] -- remains afebrile, no leukocytosis blood cultures: negative nasal secretion culture: light normal mary - continue IV Zosyn Day 3 INR reversed with coumadin pain well controlled, continue PRN Dilaudid and Percocet - called Dr. Montelongo- patient's oncologist in [facility] and discussed the case with him he will discuss options with their Radiation Oncologist and will call me again DEHYDRATION FROM POOR ORAL INTAKE - crea stable - continue IV fluids POOR ORAL INTAKE, LIKELY FROM NASOPHARYNGEAL MASS, POSSIBLE DYSPHAGIA FROM RADIATION - Speech therapy and GI consulted - Speech Eval performed: moist pureed diet ordered - no further interventions for now per GI ELEVATED INR, COAGULOPATHY - from Vitamin K deficiency? - plt, d dimer, fibrin ok - given Vitamin K po Hematology consulted - Vit K 10mg po daily x 3 days ordered - INR 1 ANEMIA - Hg 7.6 1 unit PRBC ordered URINARY RETENTION - from immobility, narcotics - patient prefers straight cath for now HYPONATREMIA - likely from hypovolemia - IV 1/2 NSS monitor Na HYPOMAGNESEMIA - IV Mg RENAL CELL CA WITH BRAIN METS - follows with [facility] management per #1 - on Dexamethasone taper DM 2 - ISS for now HTN - hold Lisinopril, ASA DVT prophylaxis SCDs ambulation as per PT/OT FULL CODE Disposition pending discussed care at length with , and patient at length, all questions answered they are comfortable and agreeable with plan of care Current Inpatient Medications: Current Inpatient Medications Medications (Trade) Dose Ordered Sig/Cristhian Route Start Time Stop Time Status Last Admin Dose Admin Acetaminophen (Tylenol Tab) 650 mg Q4H PRN PO 05/11/17 11:00 06/10/17 10:59 Glucose (Glucose 40% Gel) 15-30 GRAMS 15 GRAMS... UD PRN PO 05/11/17 12:45 06/10/17 12:44 Glucose (Glucose Chew Tab) 4-8 Tablets 4 Tabl... UD PRN PO 05/11/17 12:45 06/10/17 12:44 Dextrose (Dextrose 50% 50ML Syringe) 25-50ML OF 50% DW IV FOR... UD PRN IV 05/11/17 12:45 06/10/17 12:44 Glucagon (Glucagon Inj) 1 mg UD PRN SQ 05/11/17 12:45 06/10/17 12:44 Bupropion HCl (Wellbutrin-Sr Tab) 100 mg BID PO 05/11/17 21:00 06/10/17 20:59 05/13/17 07:39 100 MG Dexamethasone (Decadron Tab) 2 mg Q2D@0900 PO 05/13/17 09:00 05/18/17 23:59 05/13/17 07:38 2 MG Lorazepam (Ativan Tab) 1 mg HS PO 05/11/17 21:00 06/10/17 20:59 05/12/17 20:17 1 MG Sertraline HCl (Zoloft Tab) 300 mg DAILY PO 05/12/17 09:00 06/11/17 08:59 05/13/17 07:39 300 MG Piperacillin Sod/ Tazobactam Sod 4.5 gm/Dextrose 120 ml @ 30 mls/hr Q8H IV 05/11/17 20:00 05/21/17 11:59 05/13/17 11:20 30 MLS/HR Piperacillin Sod/ Tazobactam Sod (Consult) 1 ea UD PRN N/A 05/11/17 13:30 06/10/17 13:29 Pantoprazole Sodium 40 mg/ Syringe 10 ml @ 5 mls/min DAILY@ IV 05/11/17 21:00 06/10/17 20:59 05/13/17 08:04 5 MLS/MIN Lidocaine HCl/ Diphenhydramine HCl/Al Hydroxide/ Mg Hydroxide/ Glycerin/Barcode [id number] MT 05/11/17 16:00 06/10/17 15:59 05/11/17 16:16 5 ML Oxycodone/ Acetaminophen (Percocet 5-325mg Tab) 1 tab Q4H PRN PO 05/12/17 10:15 05/26/17 10:14 05/13/17 17:19 1 TAB Hydromorphone HCl (Dilaudid Inj) 1 mg Q4H PRN IV 05/12/17 13:00 05/25/17 13:59 05/13/17 15:07 1 MG Oxycodone/ Acetaminophen (Percocet 5-325mg Tab) 1 tab Q4H PRN PO 05/12/17 10:15 05/26/17 10:14 Senna/Docusate Sodium (Senokot S Tab) 1 tab QAM PO 05/13/17 09:00 06/12/17 08:59 05/13/17 07:39 1 TAB Enteral Nutritional Formula (Boost Breeze Nutritional Drink) 1 box TIDM PO 05/12/17 17:00 06/11/17 16:59 Insulin Aspart (novoLOG ASPART) SLIDING SCALE If C... ACHS SC 05/12/17 21:00 06/11/17 05:59 05/13/17 17:26 1 UNITS Sodium Chloride 1,000 ml @ 60 mls/hr [id number] IV 05/12/17 21:30 06/11/17 21:29 05/13/17 13:39 60 MLS/HR Ondansetron HCl (Zofran Inj) 4 mg Q6H PRN IV 05/13/17 08:15 06/12/17 08:14 05/13/17 08:28 4 MG
[2017-05-13] MEDS: LORAZEPAM 1 MG TAB PO SCH (21:33)
[2017-05-14] VITALS (12 sets, daily range): BP systolic 133–154; BP diastolic 75–81; PULSE 87–147; TEMP 36.3–37; O2SAT 92–95
[2017-05-14] MEDS: OXYCODONE/ACETAMINOPHEN 5-325 TAB PO PRN ×4 (01:37→15:59)
[2017-05-14] MEDS: HYDROmorphone INJ 1 MG/ML SYR IV PRN ×5 (04:28→23:32)
[2017-05-14] MEDS: PIPERACILL/TAZOBAC IV 4.5 GM in DEXTROSE 5% 100ML IV SCH ×3 (04:28→20:18)
[2017-05-14 06:05] LABS: BASO % 0.2 %; BASO ABS # 0.01 K/uL (0-0.2); EOS % 1.1 %; HEMATOCRIT 26.4 % (42-52); IG% 1.3 %; LYMPH % 14.9 %; LYMPH ABS # 0.68 K/uL (1.2-3.4); MEAN CELL VOLUME 82.5 fL (80-100); MEAN CORPUSCULAR HEMOGLOBIN 27.2 pg (25-34); MONO % 6.4 %; NEUT % 76.1 %; PLATELET COUNT 175 K/uL (130-400); WHITE BLOOD COUNT 4.56 K/uL (4.8-10.8)
[2017-05-14] MEDS: ONDANSETRON INJ 2 MG/ML 2 ML VIAL IV PRN ×2 (06:17→11:52)
[2017-05-14 06:37] LABS: ANISOCYTOSIS PRESENT; COMPLETE YES
[2017-05-14 06:46] LABS: CALCIUM 8.4 mg/dl (8.5-10.1); CREATININE 0.8 mg/dl (0.60-1.40); MAGNESIUM 1.8 mg/dl (1.8-2.4); POTASSIUM 3.7 mmol/L (3.5-5.1)
[2017-05-14] MEDS: LIDOCAINE HCL 2% VISCOUS SOLN 60 ML, DiphenhydrAMINE HCL SYRUP 150 MG, ALUMINUM/MAGNESI... MT SCH ×12 (07:57→16:00)
[2017-05-14] MEDS: SODIUM CHLORIDE 0.45% 1000ML 1,000 ML IV SCH ×2 (07:57→23:31)
[2017-05-14] MEDS: BOOST BREEZE NUTRITION DRINK 1 BOX PO SCH ×3 (07:58→16:42)
[2017-05-14] MEDS: SERTRALINE HCL 100 MG TAB PO SCH (08:55)
[2017-05-14] MEDS: BuPROPion SR 100 MG TABCR PO SCH ×2 (08:55→20:21)
[2017-05-14] MEDS: DOCUSATE SODIUM/SENNA 50/8.6MG TAB PO SCH (08:55)
[2017-05-14] MEDS: PANTOprazole INJ 40 MG in SYRINGE 0 ML IV SCH ×2 (08:56→20:19)
[2017-05-14] MEDS: INSULIN ASPART 100 UNITS/ML 3 ML PEN SC SCH ×4 (09:04→20:34)
--- NOTE | 2017-05-14 13:20 | Palliative Care Consultation ---
Consultation Date of Consultation: May 14, 2017. Requesting Physician: Dr. Roberts Attending Physician: Dr. Roberts Reason for Consultation: Goals of care History of Present Illness This 66 year old male with PMH metastatic renal cell carcinoma presented to the ED three days ago with nausea, vomiting, dehydration and LIDYA. Patient was newly diagnosed with RCC in February 2017 with mets to base of skull and nasopharynx. Patient had received cancer treatment in [facility], underwent 10 sessions of radiation. Was to start Votrient, but has been too ill. The nasopharyngeal/skull mass has unfortunately gotten bigger despite treatment, and now extends into the sphenoid sinus and is beginning to invade the skull. Patient is currently on abx for suspected sinusitis as he has been draining thick, green/bloody drainage from nose, however the nasal culture shows normal mary. Patient unfortunately has been vomiting any liquids he attempts to drink and has been overall on a steady decline. He and his family were inquiring about [facility]'s thoughts-- Dr. Roberts touched base with physician in [place] who stated there was no need for transfer, and deferred to speaking with a radiation oncologist. As of now, scans from our hospital were overnighted to [place] and the radiation oncologist is to be speaking with Dr. Roberts today. Patient and family are unsure of whether or not they would want to pursue anything aggressive for the cancer vs. just going home with hospice. Palliative care consulted to assist with establishing goals of care. I met with the patient, his Eloina, and his daughter Aliyah in room 280-2. Patient is hard of hearing, but awake and oriented x4. Patient did not wish to participate much in conversation about goals of care. Eloina states they did try to talk last evening, but patient is very undecided. Dharmesh did not tolerate radiation well the first time, so he and family are unsure if he would even want to pursue anything further. At this point, they are waiting to hear from [facility] to see what their recommendations are. We did still discuss the option of going home with hospice. I explained hospice and their service-- family is very reasonable and realistic. They would like the patient to make his ultimate decision when he is ready. Past Medical/Surgical History Medical History: DM Hypertension Social History Smoking Status: Former Smoker History of Alcohol Use: No Drug Use: none Marital Status: Housing Status: lives with family Occupation Status: retired Review of Systems Constitutional: + weakness Eyes: + diplopia (wears right sided eye patch) ENT: + trouble swallowing Cardiac: No chest pain, No edema Abdomen: + vomiting, No pain, No nausea Male : No problem reported Allergies Coded Allergies: No Known Allergies (Unverified , 05/11/17) Medications Current Inpatient Medications Medications (Trade) Dose Ordered Sig/Cristhian Route Start Time Stop Time Status Last Admin Dose Admin Acetaminophen (Tylenol Tab) 650 mg Q4H PRN PO 05/11/17 11:00 06/10/17 10:59 Glucose (Glucose 40% Gel) 15-30 GRAMS 15 GRAMS... UD PRN PO 05/11/17 12:45 06/10/17 12:44 Glucose (Glucose Chew Tab) 4-8 Tablets 4 Tabl... UD PRN PO 05/11/17 12:45 06/10/17 12:44 Dextrose (Dextrose 50% 50ML Syringe) 25-50ML OF 50% DW IV FOR... UD PRN IV 05/11/17 12:45 06/10/17 12:44 Glucagon (Glucagon Inj) 1 mg UD PRN SQ 05/11/17 12:45 06/10/17 12:44 Bupropion HCl (Wellbutrin-Sr Tab) 100 mg BID PO 05/11/17 21:00 06/10/17 20:59 05/14/17 08:55 100 MG Dexamethasone (Decadron Tab) 2 mg Q2D@0900 PO 05/13/17 09:00 05/18/17 23:59 05/13/17 07:38 2 MG Lorazepam (Ativan Tab) 1 mg HS PO 05/11/17 21:00 06/10/17 20:59 05/13/17 21:33 1 MG Sertraline HCl (Zoloft Tab) 300 mg DAILY PO 05/12/17 09:00 06/11/17 08:59 05/14/17 08:55 300 MG Piperacillin Sod/ Tazobactam Sod 4.5 gm/Dextrose 120 ml @ 30 mls/hr Q8H IV 05/11/17 20:00 05/21/17 11:59 05/14/17 12:07 30 MLS/HR Piperacillin Sod/ Tazobactam Sod (Consult) 1 ea UD PRN N/A 05/11/17 13:30 06/10/17 13:29 Pantoprazole Sodium 40 mg/ Syringe 10 ml @ 5 mls/min DAILY@09,21 IV 05/11/17 21:00 06/10/17 20:59 05/14/17 08:56 5 MLS/MIN Lidocaine HCl/ Diphenhydramine HCl/Al Hydroxide/ Mg Hydroxide/ Glycerin/Barcode [id number] MT 05/11/17 16:00 06/10/17 15:59 05/11/17 16:16 5 ML Oxycodone/ Acetaminophen (Percocet 5-325mg Tab) 1 tab Q4H PRN PO 05/12/17 10:15 05/26/17 10:14 05/14/17 11:56 1 TAB Hydromorphone HCl (Dilaudid Inj) 1 mg Q4H PRN IV 05/12/17 13:00 05/25/17 13:59 05/14/17 08:55 1 MG Senna/Docusate Sodium (Senokot S Tab) 1 tab QAM PO 05/13/17 09:00 06/12/17 08:59 05/14/17 08:55 1 TAB Enteral Nutritional Formula (Boost Breeze Nutritional Drink) 1 box TIDM PO 05/12/17 17:00 06/11/17 16:59 Insulin Aspart (novoLOG ASPART) SLIDING SCALE If C... ACHS SC 05/12/17 21:00 06/11/17 05:59 05/13/17 17:26 1 UNITS Sodium Chloride 1,000 ml @ 60 mls/hr [id number] IV 05/12/17 21:30 06/11/17 21:29 05/14/17 07:57 60 MLS/HR Ondansetron HCl (Zofran Inj) 4 mg Q6H PRN IV 05/13/17 08:15 06/12/17 08:14 05/14/17 11:52 4 MG Physical Exam Date Time Temp Pulse Resp B/P (MAP) Pulse Ox O2 Delivery O2 Flow Rate FiO2 05/14/17 11:10 37.0 97 18 143/79 (100) 93 Room Air 05/14/17 08:00 94 Room Air 10/6/17 07:18 36.8 87 18 135/77 (96) 94 Room Air 05/14/17 06:00 147 20 154/76 (102) 95 Room Air 05/14/17 04:54 36.9 96 16 144/79 (100) 95 Room Air 05/14/17 04:00 92 Room Air 05/14/17 00:00 92 Room Air 05/13/17 23:30 36.8 100 16 122/66 (84) 92 Room Air 05/13/17 20:00 92 Room Air 05/13/17 19:37 36.8 84 18 130/73 (92) 92 Room Air 05/13/17 16:00 94 Room Air 05/13/17 15:53 36.8 100 16 129/93 93 0.0 05/13/17 15:15 36.6 104 18 131/77 (95) 94 Room Air 05/13/17 14:13 36.5 115 18 127/82 (97) 94 Room Air 05/13/17 14:05 94 Room Air General Appearance: no apparent distress ENT: + pertinent finding (hard of hearing) Neck: supple, no JVD Respiratory: no respiratory distress, no accessory muscle use Cardiovascular: regular rate, rhythm, no edema Abdomen: non tender, soft Neurologic/Psychiatric: alert, oriented x 3, + pertinent finding (somewhat flattened affect) Skin: normal color Laboratory Results Last 24 Hours Test 05/13/17 16:09 05/13/17 20:30 05/14/17 05:43 05/14/17 07:50 Bedside Glucose 195 mg/dl 139 mg/dl 136 mg/dl White Blood Count 4.56 K/uL Red Blood Count 3.20 M/uL Hemoglobin 8.7 g/dL Hematocrit 26.4 % Mean Corpuscular Volume 82.5 fL Mean Corpuscular Hemoglobin 27.2 pg Mean Corpuscular Hemoglobin Concent 33.0 g/dl Platelet Count 175 K/uL Mean Platelet Volume 9.0 fL Neutrophils (%) (Auto) 76.1 % Lymphocytes (%) (Auto) 14.9 % Monocytes (%) (Auto) 6.4 % Eosinophils (%) (Auto) 1.1 % Basophils (%) (Auto) 0.2 % Neutrophils # (Auto) 3.47 K/uL Lymphocytes # (Auto) 0.68 K/uL Monocytes # (Auto) 0.29 K/uL Eosinophils # (Auto) 0.05 K/uL Basophils # (Auto) 0.01 K/uL RDW Standard Deviation 47.0 fL RDW Coefficient of Variation 15.6 % Immature Granulocyte % (Auto) 1.3 % Immature Granulocyte # (Auto) 0.06 K/uL Anisocytosis PRESENT Sodium Level 137 mmol/L Potassium Level 3.7 mmol/L Chloride Level 107 mmol/L Carbon Dioxide Level 21 mmol/L Anion Gap 9.0 mmol/L Blood Urea Nitrogen 13 mg/dl Creatinine 0.80 mg/dl Est Creatinine Clear Calc Drug Dose 96.4 ml/min Estimated GFR () 107.9 Estimated GFR (Non- 93.1 BUN/Creatinine Ratio 16.0 Random Glucose 122 mg/dl Calcium Level 8.4 mg/dl Magnesium Level 1.8 mg/dl Test 05/14/17 11:27 Bedside Glucose 130 mg/dl Assessment & Plan Palliative Performance Scale: 40 % Problem list: Pain, head Vomiting/"spitting up" Nasal drainage Dysphagia- pureed moist diet Nasopharyngeal/skull mass extending into sphenoid sinus and base of skull Metastatic renal cell carcinoma Goals of care (Z51.) Palliative care recs: -For pain, would start fentanyl patch 12mcg/hr TD Q72h. -Discontinue Percocet, add Roxanol 5mg PO Q3h PRN breakthrough pain or SOB. -Would schedule Zofran 4mg SL tab Q4h while awake. -Consider adding prochlorperazine 5mg PO Q6h PRN nausea. -Goals of care are uncertain at this time until patient and family hear from [facility] and decide on course of action. They are open to and considering hospice care if patient does not want any further treatment. Thank you for allowing me to participate in the care of this nice patient and his family. I will follow as needed.
[2017-05-14] MEDS ORDERED: BISACODYL 10 MG SUPP PR PRN (14:15)
[2017-05-14] MEDS ORDERED: POLYETHYLENE (MIRALAX) 17 GM PACK PO PRN (14:15)
[2017-05-14] MEDS ORDERED: MAGNESIUM HYDROXIDE SUSP 30 ML UDC PO PRN (14:15)
--- NOTE | 2017-05-14 14:24 | Progress Note ---
Subjective Date of Service: May 14, 2017. Subjective culture with nml mary. blood cultures remain negative. afebrile. tolerating abx. No overnight events. Problem List Medical Problems: (1) Dehydration Status: Acute (2) Dehydration Status: Acute (3) Double vision Status: Acute (4) Elevated INR Status: Acute (5) Epistaxis Status: Acute (6) Epistaxis Status: Acute (7) Metastatic disease Status: Acute (8) Pharyngeal mass Status: Acute (9) Radiation adverse effect Status: Acute (10) Sinusitis Status: Acute (11) Tachycardia Status: Acute Objective Vital Signs Date Time Temp Pulse Resp B/P (MAP) Pulse Ox O2 Delivery O2 Flow Rate FiO2 05/14/17 11:10 37.0 97 18 143/79 (100) 93 Room Air 05/14/17 08:00 94 Room Air 05/14/17 07:18 36.8 87 18 135/77 (96) 94 Room Air 05/14/17 06:00 147 20 154/76 (102) 95 Room Air 05/14/17 04:54 36.9 96 16 144/79 (100) 95 Room Air 05/14/17 04:00 92 Room Air 05/14/17 00:00 92 Room Air 05/13/17 23:30 36.8 100 16 122/66 (84) 92 Room Air 05/13/17 20:00 92 Room Air 05/13/17 19:37 36.8 84 18 130/73 (92) 92 Room Air 05/13/17 16:00 94 Room Air 05/13/17 15:53 36.8 100 16 129/93 93 0.0 05/13/17 15:15 36.6 104 18 131/77 (95) 94 Room Air Laboratory Results Item Value Date Time Eye/Ear/Nose/Throat Culture - Final Complete 05/12/17 1200 Nasal Pharangeal Swab MODERATE NORMAL MARY. Blood Culture - Preliminary Resulted 05/11/17 1348 Blood NO GROWTH TO DATE. Blood Culture - Preliminary Resulted 05/11/17 1335 Blood NO GROWTH TO DATE. Last 24 Hours Test 05/13/17 16:09 05/13/17 20:30 05/14/17 05:43 05/14/17 07:50 Bedside Glucose 195 mg/dl 139 mg/dl 136 mg/dl White Blood Count 4.56 K/uL Red Blood Count 3.20 M/uL Hemoglobin 8.7 g/dL Hematocrit 26.4 % Mean Corpuscular Volume 82.5 fL Mean Corpuscular Hemoglobin 27.2 pg Mean Corpuscular Hemoglobin Concent 33.0 g/dl Platelet Count 175 K/uL Mean Platelet Volume 9.0 fL Neutrophils (%) (Auto) 76.1 % Lymphocytes (%) (Auto) 14.9 % Monocytes (%) (Auto) 6.4 % Eosinophils (%) (Auto) 1.1 % Basophils (%) (Auto) 0.2 % Neutrophils # (Auto) 3.47 K/uL Lymphocytes # (Auto) 0.68 K/uL Monocytes # (Auto) 0.29 K/uL Eosinophils # (Auto) 0.05 K/uL Basophils # (Auto) 0.01 K/uL RDW Standard Deviation 47.0 fL RDW Coefficient of Variation 15.6 % Immature Granulocyte % (Auto) 1.3 % Immature Granulocyte # (Auto) 0.06 K/uL Anisocytosis PRESENT Sodium Level 137 mmol/L Potassium Level 3.7 mmol/L Chloride Level 107 mmol/L Carbon Dioxide Level 21 mmol/L Anion Gap 9.0 mmol/L Blood Urea Nitrogen 13 mg/dl Creatinine 0.80 mg/dl Est Creatinine Clear Calc Drug Dose 96.4 ml/min Estimated GFR () 107.9 Estimated GFR (Non- 93.1 BUN/Creatinine Ratio 16.0 Random Glucose 122 mg/dl Calcium Level 8.4 mg/dl Magnesium Level 1.8 mg/dl Test 05/14/17 11:27 Bedside Glucose 130 mg/dl Assessment and Plan (1) Sinusitis Assessment & Plan: can continue zosyn for now. culture with nml mary, suspect component of obstruction from mass, no plans for surgery at this time. would suggest d/c on po augmentin x 14 days.
[2017-05-14] MEDS ORDERED: PROMETHAZINE HCL INJ 12.5 MG in SODIUM CHLORIDE 0.9% 50ML 50 ML IV PRN (16:15)
--- NOTE | 2017-05-14 17:14 | Progress Note ---
Medicine Progress Note Date & Time of Visit: May 14, 2017 at 17:14. Subjective seen with family at the bedside comfortable but appears weak states he feels pretty good although has been having increased headaches and nausea/vomiting today not tolerating PO intake denies any new focal neuro symptoms denies chest pain, dyspnea, abdominal pain urinating more denies other symptoms Objective Last 8 Hrs Date Time Temp Pulse Resp B/P (MAP) Pulse Ox O2 Delivery O2 Flow Rate FiO2 05/14/17 15:21 36.3 98 20 133/81 (98) 94 Room Air 05/14/17 11:10 37.0 97 18 143/79 (100) 93 Room Air Physical Exam: General- oriented x 3, not in distress, weak Eyes- anicteric ENT- dried blood seen on the oropharynx, no nasal secretions notes Neck- no JVD Lungs- clear breath sounds bilaterally, no rales/wheezes Heart- regular rhythm; no murmur, normal rate Abdomen- normal bowel sounds, soft, nontender Extremities- no pretibial edema, no calf tenderness; peripheral pulses intact Neuro- alert, oriented x 3; no gross focal deficits Skin- warm & dry Laboratory Results: Last 24 Hours Test 05/13/17 20:30 05/14/17 05:43 05/14/17 07:50 05/14/17 11:27 Bedside Glucose 139 mg/dl 136 mg/dl 130 mg/dl White Blood Count 4.56 K/uL Red Blood Count 3.20 M/uL Hemoglobin 8.7 g/dL Hematocrit 26.4 % Mean Corpuscular Volume 82.5 fL Mean Corpuscular Hemoglobin 27.2 pg Mean Corpuscular Hemoglobin Concent 33.0 g/dl Platelet Count 175 K/uL Mean Platelet Volume 9.0 fL Neutrophils (%) (Auto) 76.1 % Lymphocytes (%) (Auto) 14.9 % Monocytes (%) (Auto) 6.4 % Eosinophils (%) (Auto) 1.1 % Basophils (%) (Auto) 0.2 % Neutrophils # (Auto) 3.47 K/uL Lymphocytes # (Auto) 0.68 K/uL Monocytes # (Auto) 0.29 K/uL Eosinophils # (Auto) 0.05 K/uL Basophils # (Auto) 0.01 K/uL RDW Standard Deviation 47.0 fL RDW Coefficient of Variation 15.6 % Immature Granulocyte % (Auto) 1.3 % Immature Granulocyte # (Auto) 0.06 K/uL Anisocytosis PRESENT Sodium Level 137 mmol/L Potassium Level 3.7 mmol/L Chloride Level 107 mmol/L Carbon Dioxide Level 21 mmol/L Anion Gap 9.0 mmol/L Blood Urea Nitrogen 13 mg/dl Creatinine 0.80 mg/dl Est Creatinine Clear Calc Drug Dose 96.4 ml/min Estimated GFR () 107.9 Estimated GFR (Non- 93.1 BUN/Creatinine Ratio 16.0 Random Glucose 122 mg/dl Calcium Level 8.4 mg/dl Magnesium Level 1.8 mg/dl Test 05/14/17 16:25 Bedside Glucose 123 mg/dl Assessment & Plan 66 year old male with history of 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 ENLARGING NASOPHARYNGEAL/BASE OF THE SKULL MASS, METS FROM RENAL CELL CA WITH SUPERIMPOSED SINUSITIS - discussed with Dr. Andrews, mass has increased in size compared to last imaging a few months back discussed with family and patient at length, they would prefer to continue with care here in [facility] and update their Oncologist in [place] -- remains afebrile, no leukocytosis blood cultures: negative nasal secretion culture: light normal mary - continue IV Zosyn Day 4 INR reversed with coumadin -- (+) increased headache and nausea likely from enlarging tumor Dilaudid increased, added Fentanyl patch, Zofran SL q6h Dexamethasone increased to 4mg IV q12h -- palliative care [facility] evaluated the patient and discussed with family they are presently discussing possible transition to hospice - called Dr. Montelongo- patient's oncologist in [facility] and discussed the case with him he will discuss options with their Radiation Oncologist and will call me again he recommended to increase Dexamethasone for now though DEHYDRATION FROM POOR ORAL INTAKE - crea stable - continue IV fluids POOR ORAL INTAKE, LIKELY FROM NASOPHARYNGEAL MASS, POSSIBLE DYSPHAGIA FROM RADIATION - Speech therapy and GI consulted - Speech Eval performed: moist pureed diet ordered - no further interventions for now per GI ELEVATED INR, COAGULOPATHY - from Vitamin K deficiency? - plt, d dimer, fibrin ok - given Vitamin K po Hematology consulted - Vit K 10mg po daily x 3 days ordered - INR 1 ANEMIA - Hg 7.6 1 unit PRBC ordered improved to 8 URINARY RETENTION - from immobility, narcotics - patient prefers straight cath for now HYPONATREMIA - likely from hypovolemia - IV 1/2 NSS monitor Na HYPOMAGNESEMIA - IV Mg RENAL CELL CA WITH BRAIN METS - follows with Briana management per #1 DM 2 - ISS for now HTN - hold Lisinopril, ASA DVT prophylaxis SCDs ambulation as per PT/OT FULL CODE Disposition pending patient and family discussing possible transition to home with hospice discussed care at length with , and patient at length, all questions answered they are comfortable and agreeable with plan of care Current Inpatient Medications: Current Inpatient Medications Medications (Trade) Dose Ordered Sig/Cristhian Route Start Time Stop Time Status Last Admin Dose Admin Acetaminophen (Tylenol Tab) 650 mg Q4H PRN PO 05/11/17 11:00 06/10/17 10:59 Glucose (Glucose 40% Gel) 15-30 GRAMS 15 GRAMS... UD PRN PO 05/11/17 12:45 06/10/17 12:44 Glucose (Glucose Chew Tab) 4-8 Tablets 4 Tabl... UD PRN PO 05/11/17 12:45 06/10/17 12:44 Dextrose (Dextrose 50% 50ML Syringe) 25-50ML OF 50% DW IV FOR... UD PRN IV 05/11/17 12:45 06/10/17 12:44 Glucagon (Glucagon Inj) 1 mg UD PRN SQ 05/11/17 12:45 06/10/17 12:44 Bupropion HCl (Wellbutrin-Sr Tab) 100 mg BID PO 05/11/17 21:00 06/10/17 20:59 05/14/17 08:55 100 MG Dexamethasone (Decadron Tab) 2 mg Q2D@0900 PO 05/13/17 09:00 05/18/17 23:59 05/13/17 07:38 2 MG Lorazepam (Ativan Tab) 1 mg HS PO 05/11/17 21:00 06/10/17 20:59 05/13/17 21:33 1 MG Sertraline HCl (Zoloft Tab) 300 mg DAILY PO 05/12/17 09:00 06/11/17 08:59 05/14/17 08:55 300 MG Piperacillin Sod/ Tazobactam Sod 4.5 gm/Dextrose 120 ml @ 30 mls/hr Q8H IV 05/11/17 20:00 05/21/17 11:59 05/14/17 12:07 30 MLS/HR Piperacillin Sod/ Tazobactam Sod (Consult) 1 ea UD PRN N/A 05/11/17 13:30 06/10/17 13:29 Pantoprazole Sodium 40 mg/ Syringe 10 ml @ 5 mls/min DAILY@09,21 IV 05/11/17 21:00 06/10/17 20:59 05/14/17 08:56 5 MLS/MIN Lidocaine HCl/ Diphenhydramine HCl/Al Hydroxide/ Mg Hydroxide/ Glycerin/Barcode [id number] MT 05/11/17 16:00 06/10/17 15:59 05/11/17 16:16 5 ML Oxycodone/ Acetaminophen (Percocet 5-325mg Tab) 1 tab Q4H PRN PO 05/12/17 10:15 05/26/17 10:14 05/14/17 15:59 1 TAB Senna/Docusate Sodium (Senokot S Tab) 1 tab QAM PO 05/13/17 09:00 06/12/17 08:59 05/14/17 08:55 1 TAB Enteral Nutritional Formula (Boost Breeze Nutritional Drink) 1 box TIDM PO 05/12/17 17:00 06/11/17 16:59 Insulin Aspart (novoLOG ASPART) SLIDING SCALE If C... ACHS SC 05/12/17 21:00 06/11/17 05:59 05/13/17 17:26 1 UNITS Sodium Chloride 1,000 ml @ 60 mls/hr [id number] IV 05/12/17 21:30 06/11/17 21:29 05/14/17 07:57 60 MLS/HR Ondansetron HCl (Zofran Inj) 4 mg Q6H PRN IV 05/13/17 08:15 06/12/17 08:14 05/14/17 11:52 4 MG Polyethylene (Miralax Powder Packet) 17 gm DAILY PRN PO 05/14/17 14:15 06/13/17 14:14 05/14/17 14:39 17 GM Magnesium Hydroxide (Milk Of Magnesia Susp) 30 ml Q6H PRN PO 05/14/17 14:15 06/13/17 14:14 Bisacodyl (Dulcolax Supp) 10 mg DAILY PRN [place] 05/14/17 14:15 06/13/17 14:14 Hydromorphone HCl (Dilaudid Inj) 1 mg Q2H PRN IV 05/14/17 16:30 05/25/17 13:59 Promethazine HCl 12.5 mg/Sodium Chloride 50.5 ml @ 204 mls/hr Q6H PRN IV 05/14/17 16:15 06/13/17 16:14 05/14/17 16:35 204 MLS/HR
[2017-05-14] MEDS ORDERED: MoRPHine SULFATE 5 MG/0.25 ML UDP PO PRN (17:15)
[2017-05-14] MEDS: ONDANSETRON 4 MG TAB PO SCH ×2 (18:00→23:31)
[2017-05-14] MEDS ORDERED: FENTANYL 12 MCG/HR TDSY TD SCH (18:00)
[2017-05-14] MEDS: DEXAMETHASONE INJ 4 MG in SYRINGE 0 ML IV SCH (18:50)
[2017-05-14] MEDS: LORAZEPAM 1 MG TAB PO SCH (20:21)
[2017-05-14] MEDS: CHECK FENTANYL PATCH PLACEMENT SCH (23:31)
[2017-05-15] MEDS: HYDROmorphone INJ 1 MG/ML SYR IV PRN ×8 (02:35→22:13)
[2017-05-15] MEDS: PIPERACILL/TAZOBAC IV 4.5 GM in DEXTROSE 5% 100ML IV SCH ×3 (04:30→20:27)
[2017-05-15 04:34] VITALS: BP 149/77; PULSE 88; TEMP 36.9; O2SAT 92
[2017-05-15] MEDS: DEXAMETHASONE INJ 4 MG in SYRINGE 0 ML IV SCH ×2 (05:50→18:19)
[2017-05-15] MEDS: ONDANSETRON 4 MG TAB PO SCH ×3 (05:54→17:18)
[2017-05-15] MEDS: INSULIN ASPART 100 UNITS/ML 3 ML PEN SC SCH ×4 (06:30→21:00)
[2017-05-15 07:34] VITALS: BP 144/77; PULSE 101; TEMP 36.6; O2SAT 92
[2017-05-15 07:36] LABS: BASO % 0.2 %; BASO ABS # 0.01 K/uL (0-0.2); COMPLETE YES; HEMATOCRIT 28.3 % (42-52); IG% 1.6 %; LYMPH % 15.2 %; LYMPH ABS # 0.77 K/uL (1.2-3.4); MEAN CELL VOLUME 83.2 fL (80-100); MEAN CORPUSCULAR HEMOGLOBIN 27.9 pg (25-34); MEAN CORPUSCULAR HGB CONC 33.6 g/dl (32-36); MEAN PLATELET VOLUME 9.3 fL (7.4-10.4); MONO % 6.5 %; NEUT % 75.5 %; PLATELET COUNT 200 K/uL (130-400); WHITE BLOOD COUNT 5.07 K/uL (4.8-10.8)
[2017-05-15] MEDS: BOOST BREEZE NUTRITION DRINK 1 BOX PO SCH ×3 (08:00→16:36)
[2017-05-15] MEDS: LIDOCAINE HCL 2% VISCOUS SOLN 60 ML, DiphenhydrAMINE HCL SYRUP 150 MG, ALUMINUM/MAGNESI... MT SCH ×12 (08:00→15:56)
[2017-05-15] MEDS: BuPROPion SR 100 MG TABCR PO SCH ×2 (08:01→20:04)
[2017-05-15] MEDS: DOCUSATE SODIUM/SENNA 50/8.6MG TAB PO SCH (08:01)
[2017-05-15] MEDS: SERTRALINE HCL 100 MG TAB PO SCH (08:01)
[2017-05-15] MEDS: CHECK FENTANYL PATCH PLACEMENT SCH ×3 (08:02→22:57)
[2017-05-15 08:07] LABS: BUN/CREATININE RATIO 10.2 (10-20); CALCIUM 9.1 mg/dl (8.5-10.1); CREATININE 0.89 mg/dl (0.60-1.40); MAGNESIUM 1.7 mg/dl (1.8-2.4); POTASSIUM 3.3 mmol/L (3.5-5.1)
[2017-05-15] MEDS: PANTOprazole INJ 40 MG in SYRINGE 0 ML IV SCH (08:20)
[2017-05-15 11:49] VITALS: BP 147/75; PULSE 92; TEMP 36.5; O2SAT 95
--- NOTE | 2017-05-15 12:09 | Progress Note ---
Medicine Progress Note Date & Time of Visit: May 15, 2017 at 11:54. Subjective seen resting in bed, appears brighter comfortable family at bedside states he feels somewhat improved today less nausea, able to have some breakfast headache about the same, not worsening no new focal deficits less nasal secretions denies other symptoms Objective Last 8 Hrs Date Time Temp Pulse Resp B/P (MAP) Pulse Ox O2 Delivery O2 Flow Rate FiO2 05/15/17 11:49 36.5 92 18 147/75 (99) 95 Room Air 05/15/17 08:00 Room Air 05/15/17 07:34 36.6 101 18 144/77 (99) 92 Room Air 05/15/17 04:34 36.9 88 16 149/77 (101) 92 Room Air 05/15/17 04:00 Room Air Physical Exam: General- oriented x 3, not in distress, weak Eyes- anicteric ENT- dried blood seen on the oropharynx, no nasal secretions noted Neck- no JVD Lungs- clear breath sounds bilaterally Heart- regular rhythm; no murmur, normal rate Abdomen- normal bowel sounds, soft, nontender Extremities- no pretibial edema, no calf tenderness Neuro- alert, oriented x 3; no gross focal deficits Skin- warm & dry Laboratory Results: Last 24 Hours Test 05/14/17 16:25 05/14/17 20:24 05/15/17 06:56 05/15/17 07:25 Bedside Glucose 123 mg/dl 130 mg/dl 125 mg/dl White Blood Count 5.07 K/uL Red Blood Count 3.40 M/uL Hemoglobin 9.5 g/dL Hematocrit 28.3 % Mean Corpuscular Volume 83.2 fL Mean Corpuscular Hemoglobin 27.9 pg Mean Corpuscular Hemoglobin Concent 33.6 g/dl Platelet Count 200 K/uL Mean Platelet Volume 9.3 fL Neutrophils (%) (Auto) 75.5 % Lymphocytes (%) (Auto) 15.2 % Monocytes (%) (Auto) 6.5 % Eosinophils (%) (Auto) 1.0 % Basophils (%) (Auto) 0.2 % Neutrophils # (Auto) 3.83 K/uL Lymphocytes # (Auto) 0.77 K/uL Monocytes # (Auto) 0.33 K/uL Eosinophils # (Auto) 0.05 K/uL Basophils # (Auto) 0.01 K/uL RDW Standard Deviation 48.4 fL RDW Coefficient of Variation 15.9 % Immature Granulocyte % (Auto) 1.6 % Immature Granulocyte # (Auto) 0.08 K/uL Sodium Level 138 mmol/L Potassium Level 3.3 mmol/L Chloride Level 105 mmol/L Carbon Dioxide Level 23 mmol/L Anion Gap 10.0 mmol/L Blood Urea Nitrogen 9 mg/dl Creatinine 0.89 mg/dl Est Creatinine Clear Calc Drug Dose 85.6 ml/min Estimated GFR () 103.3 Estimated GFR (Non- 89.1 BUN/Creatinine Ratio 10.2 Random Glucose 118 mg/dl Calcium Level 9.1 mg/dl Magnesium Level 1.7 mg/dl Assessment & Plan 66 year old male with history of 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 ENLARGING NASOPHARYNGEAL/BASE OF THE SKULL MASS, METS FROM RENAL CELL CA WITH SUPERIMPOSED SINUSITIS - discussed with Dr. Andrews, mass has increased in size compared to last imaging a few months back discussed with family and patient at length, they would prefer to continue with care here in [facility] and update their Oncologist in [place] -- remains afebrile, no leukocytosis blood cultures: negative nasal secretion culture: light normal mary - continue IV Zosyn Day 5 INR reversed with Vit k, repeat INR today -- (+) increased headache and nausea yesterday likely from enlarging tumor Dilaudid increased, added Fentanyl patch, Zofran SL q6h Dexamethasone increased to 4mg IV q12h pain adequately controlled -- palliative care [facility] [place] patient and discussed with family patient and family has expressed wish to go home with hospice on discharge, change code status to DNR - called Dr. Montelongo- patient's oncologist in [facility] and discussed the case with him he will discuss options with their Radiation Oncologist and will call me again he recommended to increase Dexamethasone for now though DEHYDRATION FROM POOR ORAL INTAKE - crea stable - continue IV fluids POOR ORAL INTAKE, LIKELY FROM NASOPHARYNGEAL MASS, POSSIBLE DYSPHAGIA FROM RADIATION - Speech therapy and GI consulted - Speech Eval performed: moist pureed diet ordered - no further interventions for now per GI ELEVATED INR, COAGULOPATHY - from Vitamin K deficiency? - plt, d dimer, fibrin ok - given Vitamin K po Hematology consulted - Vit K 10mg po daily x 3 days ordered - INR 1 - repeat INR today ANEMIA - Hg 7.6 1 unit PRBC ordered improved to 8 URINARY RETENTION - from immobility, narcotics - patient prefers straight cath for now HYPONATREMIA - likely from hypovolemia - IV 1/2 NSS monitor Na HYPOMAGNESEMIA and HYPOKALEMIA - IV Mg and K ordered RENAL CELL CA WITH BRAIN METS - follows with Briana management per #1 DM 2 - ISS for now HTN - hold Lisinopril, ASA DVT prophylaxis SCDs ambulation as per PT/OT FULL CODE Disposition -- palliative care svc evaluated the patient and discussed with family patient and family has expressed wish to go home with hospice on discharge, change code status to DNR discussed care at length with , and patient at length, all questions answered they are comfortable and agreeable with plan of care Current Inpatient Medications: Current Inpatient Medications Medications (Trade) Dose Ordered Sig/Cristhian Route Start Time Stop Time Status Last Admin Dose Admin Acetaminophen (Tylenol Tab) 650 mg Q4H PRN PO 05/11/17 11:00 06/10/17 10:59 Glucose (Glucose 40% Gel) 15-30 GRAMS 15 GRAMS... UD PRN PO 05/11/17 12:45 06/10/17 12:44 Glucose (Glucose Chew Tab) 4-8 Tablets 4 Tabl... UD PRN PO 05/11/17 12:45 06/10/17 12:44 Dextrose (Dextrose 50% 50ML Syringe) 25-50ML OF 50% DW IV FOR... UD PRN IV 05/11/17 12:45 06/10/17 12:44 Glucagon (Glucagon Inj) 1 mg UD PRN SQ 05/11/17 12:45 06/10/17 12:44 Bupropion HCl (Wellbutrin-Sr Tab) 100 mg BID PO 05/11/17 21:00 06/10/17 20:59 05/14/17 08:55 100 MG Lorazepam (Ativan Tab) 1 mg HS PO 05/11/17 21:00 06/10/17 20:59 05/13/17 21:33 1 MG Sertraline HCl (Zoloft Tab) 300 mg DAILY PO 05/12/17 09:00 06/11/17 08:59 05/14/17 08:55 300 MG Piperacillin Sod/ Tazobactam Sod 4.5 gm/Dextrose 120 ml @ 30 mls/hr Q8H IV 05/11/17 20:00 05/21/17 11:59 05/15/17 11:50 30 MLS/HR Piperacillin Sod/ Tazobactam Sod (Consult) 1 ea UD PRN N/A 05/11/17 13:30 06/10/17 13:29 Pantoprazole Sodium 40 mg/ Syringe 10 ml @ 5 mls/min DAILY@09,21 IV 05/11/17 21:00 06/10/17 20:59 05/15/17 08:20 5 MLS/MIN Lidocaine HCl/ Diphenhydramine HCl/Al Hydroxide/ Mg Hydroxide/ Glycerin/Barcode 3XDQ4 MT 05/11/17 16:00 06/10/17 15:59 05/11/17 16:16 5 ML Oxycodone/ Acetaminophen (Percocet 5-325mg Tab) 1 tab Q4H PRN PO 05/12/17 10:15 05/26/17 10:14 05/14/17 15:59 1 TAB Senna/Docusate Sodium (Senokot S Tab) 1 tab QAM PO 05/13/17 09:00 06/12/17 08:59 05/14/17 08:55 1 TAB Enteral Nutritional Formula (Boost Breeze Nutritional Drink) 1 box TIDM PO 05/12/17 17:00 06/11/17 16:59 Insulin Aspart (novoLOG ASPART) SLIDING SCALE If C... ACHS SC 05/12/17 21:00 06/11/17 05:59 05/13/17 17:26 1 UNITS Sodium Chloride 1,000 ml @ 60 mls/hr [id number] IV 05/12/17 21:30 06/11/17 21:29 05/14/17 23:31 60 MLS/HR Ondansetron HCl (Zofran Inj) 4 mg Q6H PRN IV 05/13/17 08:15 06/12/17 08:14 05/14/17 11:52 4 MG Polyethylene (Miralax Powder Packet) 17 gm DAILY PRN PO 05/14/17 14:15 06/13/17 14:14 05/14/17 14:39 17 GM Magnesium Hydroxide (Milk Of Magnesia Susp) 30 ml Q6H PRN PO 05/14/17 14:15 06/13/17 14:14 Bisacodyl (Dulcolax Supp) 10 mg DAILY PRN [place] 05/14/17 14:15 06/13/17 14:14 Hydromorphone HCl (Dilaudid Inj) 1 mg Q2H PRN IV 05/14/17 16:30 05/25/17 13:59 05/15/17 11:15 1 MG Promethazine HCl 12.5 mg/Sodium Chloride 50.5 ml @ 204 mls/hr Q6H PRN IV 05/14/17 16:15 06/13/17 16:14 05/14/17 16:35 204 MLS/HR Dexamethasone Sodium Phosphate 4 mg/Syringe 1 ml @ 1 mls/min Q12H IV 05/14/17 18:00 06/13/17 17:59 05/15/17 05:50 1 MLS/MIN Fentanyl (Duragesic Patch) 12 mcg Q72H TD 05/14/17 18:00 05/28/17 17:59 05/14/17 18:49 12 MCG Miscellaneous (Fentanyl Patch Remove & Waste) 1 ea Q3D N/A 05/17/17 17:59 06/16/17 17:58 Miscellaneous Information (Check Fentanyl Patch Placement) 1 ea QS N/A 05/15/17 00:00 06/14/17 00:00 05/15/17 08:02 1 EA Morphine Sulfate (Roxanol Oral Soln) 5 mg Q3H PRN PO 05/14/17 17:15 05/28/17 17:14 Ondansetron HCl (Zofran Tab) 4 mg Q6HWA PO 05/14/17 18:00 06/13/17 17:59
[2017-05-15 12:49] LABS: PROTHROMBIN TIME (PATIENT) 10.8 SECONDS (9.0-12.0)
[2017-05-15] MEDS: SODIUM CHLORIDE 0.45% IV SCH (13:30)
[2017-05-15] MEDS ORDERED: MAGNESIUM SULFATE 1GM / D5W 1 GM in PREMIXED IN D5W 100 ML IV ONE (13:30)
[2017-05-15] MEDS: POTASSIUM CHLORIDE IV SCH (13:30)
[2017-05-15] MEDS: POTASSIUM CHLR 10 MEQ / WTR 10 MEQ in PREMIXED WATER 100 ML IV SCH ×2 (13:44→14:53)
[2017-05-15 16:17] VITALS: BP 144/76; PULSE 92; TEMP 36.7; O2SAT 94
[2017-05-15] MEDS: LORAZEPAM 1 MG TAB PO SCH (20:04)
[2017-05-16] VITALS (8 sets, daily range): BP systolic 138–162; BP diastolic 72–80; PULSE 74–102; TEMP 36.4–37; O2SAT 93–95
[2017-05-16] MEDS: HYDROmorphone INJ 1 MG/ML SYR IV PRN ×4 (00:55→08:53)
[2017-05-16] MEDS: PIPERACILL/TAZOBAC IV 4.5 GM in DEXTROSE 5% 100ML IV SCH ×3 (03:36→20:37)
[2017-05-16] MEDS: DEXAMETHASONE INJ 4 MG in SYRINGE 0 ML IV SCH ×2 (05:54→18:11)
[2017-05-16] MEDS: ONDANSETRON 4 MG TAB PO SCH ×4 (05:54→17:22)
[2017-05-16] MEDS: SODIUM CHLORIDE 0.45% IV SCH ×2 (05:55→23:03)
[2017-05-16] MEDS: POTASSIUM CHLORIDE IV SCH ×2 (05:55→23:03)
[2017-05-16] MEDS: INSULIN ASPART 100 UNITS/ML 3 ML PEN SC SCH ×4 (06:30→20:35)
[2017-05-16] MEDS: LIDOCAINE HCL 2% VISCOUS SOLN 60 ML, DiphenhydrAMINE HCL SYRUP 150 MG, ALUMINUM/MAGNESI... MT SCH ×12 (07:34→16:00)
[2017-05-16] MEDS: BOOST BREEZE NUTRITION DRINK 1 BOX PO SCH ×2 (07:34→11:14)
[2017-05-16 07:55] LABS: BUN/CREATININE RATIO 9.4 (10-20); CALCIUM 9.2 mg/dl (8.5-10.1); CREATININE 0.8 mg/dl (0.60-1.40); MAGNESIUM 1.9 mg/dl (1.8-2.4); POTASSIUM 3.5 mmol/L (3.5-5.1)
[2017-05-16] MEDS: CHECK FENTANYL PATCH PLACEMENT SCH (07:56)
[2017-05-16 07:59] LABS: BASO % 0.2 %; BASO ABS # 0.01 K/uL (0-0.2); COMPLETE YES; EOS % 0.4 %; HEMATOCRIT 27.4 % (42-52); IG% 1.5 %; LYMPH % 11.8 %; LYMPH ABS # 0.56 K/uL (1.2-3.4); MEAN CELL VOLUME 84.3 fL (80-100); MEAN CORPUSCULAR HEMOGLOBIN 27.7 pg (25-34); MEAN CORPUSCULAR HGB CONC 32.8 g/dl (32-36); MEAN PLATELET VOLUME 9.1 fL (7.4-10.4); MONO % 6.1 %; PLATELET COUNT 204 K/uL (130-400); RED BLOOD COUNT 3.25 M/uL (4.7-6.1); WHITE BLOOD COUNT 4.76 K/uL (4.8-10.8)
[2017-05-16] MEDS: SERTRALINE HCL 100 MG TAB PO SCH (08:48)
[2017-05-16] MEDS: BuPROPion SR 100 MG TABCR PO SCH ×2 (08:48→20:00)
[2017-05-16] MEDS: PANTOprazole INJ 40 MG in SYRINGE 0 ML IV SCH (08:53)
[2017-05-16] MEDS ORDERED: DOCUSATE SODIUM/SENNA 50/8.6MG TAB PO PRN (09:00)
[2017-05-16] MEDS ORDERED: HYDROmorphone INJ 2 MG/ML SYR/VIAL IV PRN (11:00)
[2017-05-16] MEDS ORDERED: HYDROmorphone INJ 2 MG/ML SYR/VIAL ONE (12:03)
[2017-05-16] MEDS ORDERED: FENTANYL 25 MCG/HR TDSY TD SCH (12:30)
[2017-05-16] MEDS ORDERED: FENTANYL PATCH REMOVE & WASTE ONE (12:45)
[2017-05-16] MEDS ORDERED: NALOXONE HCL 0.4 MG/1 ML VIAL/CARP IV PRN (13:45)
--- NOTE | 2017-05-16 13:58 | Progress Note ---
Medicine Progress Note Date & Time of Visit: May 16, 2017 at 13:52. Subjective seen sitting up in bed, comfortable was having severe headaches a while ago, now relieved after having dilaudid IV states he actually feels good today denies nausea except for when nasal secretion come down his throat did not tolerate breakfast today though denies chest pain, dyspnea, abdominal pain no other symptoms Objective Last 8 Hrs Date Time Temp Pulse Resp B/P (MAP) Pulse Ox O2 Delivery O2 Flow Rate FiO2 05/16/17 12:00 Room Air 05/16/17 11:27 36.6 81 16 156/74 (101) 93 Room Air 05/16/17 08:00 Room Air 05/16/17 07:44 36.7 95 16 152/78 (102) 94 Room Air Physical Exam: General- oriented x 3, not in distress, weak Eyes- anicteric ENT- dried blood seen on the oropharynx, no nasal secretions noted Neck- no JVD Lungs- clear breath sounds bilaterally, no rales Heart- regular rhythm; no murmur, normal rate Abdomen- normal bowel sounds, soft, nontender Extremities- no pretibial edema, no calf tenderness Neuro- alert, oriented x 3; no gross focal deficits Skin- warm & dry Laboratory Results: Last 24 Hours Test 05/15/17 20:31 05/16/17 07:03 05/16/17 07:30 05/16/17 11:33 Bedside Glucose 131 mg/dl 137 mg/dl 155 mg/dl White Blood Count 4.76 K/uL Red Blood Count 3.25 M/uL Hemoglobin 9.0 g/dL Hematocrit 27.4 % Mean Corpuscular Volume 84.3 fL Mean Corpuscular Hemoglobin 27.7 pg Mean Corpuscular Hemoglobin Concent 32.8 g/dl Platelet Count 204 K/uL Mean Platelet Volume 9.1 fL Neutrophils (%) (Auto) 80.0 % Lymphocytes (%) (Auto) 11.8 % Monocytes (%) (Auto) 6.1 % Eosinophils (%) (Auto) 0.4 % Basophils (%) (Auto) 0.2 % Neutrophils # (Auto) 3.81 K/uL Lymphocytes # (Auto) 0.56 K/uL Monocytes # (Auto) 0.29 K/uL Eosinophils # (Auto) 0.02 K/uL Basophils # (Auto) 0.01 K/uL RDW Standard Deviation 49.5 fL RDW Coefficient of Variation 16.1 % Immature Granulocyte % (Auto) 1.5 % Immature Granulocyte # (Auto) 0.07 K/uL Sodium Level 139 mmol/L Potassium Level 3.5 mmol/L Chloride Level 106 mmol/L Carbon Dioxide Level 24 mmol/L Anion Gap 9.0 mmol/L Blood Urea Nitrogen 8 mg/dl Creatinine 0.80 mg/dl Est Creatinine Clear Calc Drug Dose 95.1 ml/min Estimated GFR () 107.9 Estimated GFR (Non- 93.1 BUN/Creatinine Ratio 9.4 Random Glucose 134 mg/dl Calcium Level 9.2 mg/dl Magnesium Level 1.9 mg/dl Assessment & Plan 66 year old male with history of 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 ENLARGING NASOPHARYNGEAL/BASE OF THE SKULL MASS, METS FROM RENAL CELL CA WITH SUPERIMPOSED SINUSITIS - discussed with Dr. Andrews, mass has increased in size compared to last imaging a few months back discussed with family and patient at length, they would prefer to continue with care here in [facility] and update their Oncologist in [place] -- remains afebrile, no leukocytosis blood cultures: negative nasal secretion culture: light normal mary - continue IV Zosyn Day 6/7 INR reversed with Vit k, repeat INR today 1.0 -- (+) increasing headache and nausea likely from enlarging tumor Dilaudid increased, added Fentanyl patch, Zofran SL q6h--> start Dilaudid [employer] pump, Fentanyl increased, PRN antiemetics Dexamethasone increased to 4mg IV q12h add Scopolamine patch to decrease secretions transfer to [facility] today -- palliative care [facility] evaluated the patient and discussed with family patient and family has expressed wish to go home with palliative/ hospice on discharge, change code status to DNR -- anticipate d/c home with SL medications when patient gets stronger in 1-2 days - called Dr. Montelongo- patient's oncologist in [facility] and discussed the case with him he will discuss options with their Radiation Oncologist and will call me again he recommended to increase Dexamethasone for now though DEHYDRATION FROM POOR ORAL INTAKE - crea stable - continue IV fluids POOR ORAL INTAKE, LIKELY FROM NASOPHARYNGEAL MASS, POSSIBLE DYSPHAGIA FROM RADIATION - Speech therapy and GI consulted - Speech Eval performed: moist pureed diet ordered - no further interventions for now per GI ELEVATED INR, COAGULOPATHY - from Vitamin K deficiency? - plt, d dimer, fibrin ok - given Vitamin K po Hematology consulted - Vit K 10mg po daily x 3 days ordered - INR 1 - repeat INR 1.0 repeat tomorrow ANEMIA - Hg 7.6 1 unit PRBC ordered improved to 9.0 URINARY RETENTION - from immobility, narcotics - improving HYPONATREMIA - likely from hypovolemia - IV 1/2 NSS monitor Na HYPOMAGNESEMIA and HYPOKALEMIA - IV Mg and K ordered RENAL CELL CA WITH BRAIN METS - follows with Briana management per #1 DM 2 - ISS for now HTN - hold Lisinopril, ASA DVT prophylaxis SCDs ambulation as per PT/OT FULL CODE Disposition -- palliative care svc evaluated the patient and discussed with family patient and family has expressed wish to go home with hospice/palliative on discharge, change code status to DNR discussed care at length with patient at length, all questions answered they are comfortable and agreeable with plan of care Current Inpatient Medications: Current Inpatient Medications Medications (Trade) Dose Ordered Sig/Cristhian Route Start Time Stop Time Status Last Admin Dose Admin Acetaminophen (Tylenol Tab) 650 mg Q4H PRN PO 05/11/17 11:00 06/10/17 10:59 Glucose (Glucose 40% Gel) 15-30 GRAMS 15 GRAMS... UD PRN PO 05/11/17 12:45 06/10/17 12:44 Glucose (Glucose Chew Tab) 4-8 Tablets 4 Tabl... UD PRN PO 05/11/17 12:45 06/10/17 12:44 Dextrose (Dextrose 50% 50ML Syringe) 25-50ML OF 50% DW IV FOR... UD PRN IV 05/11/17 12:45 06/10/17 12:44 Glucagon (Glucagon Inj) 1 mg UD PRN SQ 05/11/17 12:45 06/10/17 12:44 Bupropion HCl (Wellbutrin-Sr Tab) 100 mg BID PO 05/11/17 21:00 06/10/17 20:59 05/14/17 08:55 100 MG Lorazepam (Ativan Tab) 1 mg HS PO 05/11/17 21:00 06/10/17 20:59 05/13/17 21:33 1 MG Sertraline HCl (Zoloft Tab) 300 mg DAILY PO 05/12/17 09:00 06/11/17 08:59 05/14/17 08:55 300 MG Piperacillin Sod/ Tazobactam Sod 4.5 gm/Dextrose 120 ml @ 30 mls/hr Q8H IV 05/11/17 20:00 05/21/17 11:59 05/16/17 11:44 30 MLS/HR Piperacillin Sod/ Tazobactam Sod (Consult) 1 ea UD PRN N/A 05/11/17 13:30 06/10/17 13:29 Lidocaine HCl/ Diphenhydramine HCl/Al Hydroxide/ Mg Hydroxide/ Glycerin/Barcode 3XDQ4 MT 05/11/17 16:00 06/10/17 15:59 05/11/17 16:16 5 ML Oxycodone/ Acetaminophen (Percocet 5-325mg Tab) 1 tab Q4H PRN PO 05/12/17 10:15 05/26/17 10:14 05/14/17 15:59 1 TAB Insulin Aspart (novoLOG ASPART) SLIDING SCALE If C... ACHS SC 05/12/17 21:00 06/11/17 05:59 05/13/17 17:26 1 UNITS Ondansetron HCl (Zofran Inj) 4 mg Q6H PRN IV 05/13/17 08:15 06/12/17 08:14 05/14/17 11:52 4 MG Polyethylene (Miralax Powder Packet) 17 gm DAILY PRN PO 05/14/17 14:15 06/13/17 14:14 05/14/17 14:39 17 GM Magnesium Hydroxide (Milk Of Magnesia Susp) 30 ml Q6H PRN PO 05/14/17 14:15 06/13/17 14:14 Bisacodyl (Dulcolax Supp) 10 mg DAILY PRN [place] 05/14/17 14:15 06/13/17 14:14 Promethazine HCl 12.5 mg/Sodium Chloride 50.5 ml @ 204 mls/hr Q6H PRN IV 05/14/17 16:15 06/13/17 16:14 05/14/17 16:35 204 MLS/HR Dexamethasone Sodium Phosphate 4 mg/Syringe 1 ml @ 1 mls/min Q12H IV 05/14/17 18:00 06/13/17 17:59 05/16/17 05:54 1 MLS/MIN Morphine Sulfate (Roxanol Oral Soln) 5 mg Q3H PRN PO 05/14/17 17:15 05/28/17 17:14 Ondansetron HCl (Zofran Tab) 4 mg Q6HWA PO 05/14/17 18:00 06/13/17 17:59 Pantoprazole Sodium 40 mg/ Syringe 10 ml @ 5 mls/min DAILY IV 05/16/17 09:00 06/10/17 20:59 05/16/17 08:53 5 MLS/MIN Potassium Chloride 20 meq/ Sodium Chloride 1,010 ml @ 60 mls/hr [id number] IV 05/15/17 13:30 06/11/17 13:29 Senna/Docusate Sodium (Senokot S Tab) 1 tab QAM PRN PO 05/16/17 09:00 06/12/17 08:59 Fentanyl (Duragesic Patch) 25 mcg Q72H TD 05/16/17 12:30 05/30/17 12:29 05/16/17 12:38 25 MCG Hydromorphone HCl (Dilaudid Inj) 2 mg Q2H PRN IV 05/16/17 11:00 05/25/17 13:59 Miscellaneous (Fentanyl Patch Remove & Waste) 1 ea Q3D N/A 05/19/17 12:29 06/18/17 12:28 Miscellaneous Information (Check Fentanyl Patch Placement) 1 ea QS N/A 05/16/17 16:00 06/15/17 15:59 Naloxone HCl (Narcan Inj) 0.1 mg Q5M PRN IV 05/16/17 13:45 06/15/17 13:44 UNV Hydromorphone HCl (Dilaudid Mattress Maker) 25 mg PRN PRN IV 05/16/17 13:45 05/30/17 13:44 UNV Sodium Chloride 1,000 ml @ 15 mls/hr Q24H IV 05/16/17 13:42 06/15/17 13:41 UNV Scopolamine (Transderm-Scop Patch) 1.5 mg Q72H TD 05/16/17 13:45 06/15/17 13:44 UNV Miscellaneous (Remove Transderm-Scop Patch) 1 ea Q72H N/A 05/19/17 13:45 06/18/17 13:44 UNV Miscellaneous Information (Check Scopolamine Patch Placement) 1 ea QS N/A 05/16/17 16:00 06/15/17 15:59 UNV
[2017-05-16] MEDS: ONDANSETRON INJ 2 MG/ML 2 ML VIAL IV PRN (15:08)
[2017-05-16] MEDS: SCOPOLAMINE 1.5 MG TDSY TD SCH (15:42)
[2017-05-16] MEDS: SODIUM CHLORIDE 0.9% 1000ML 1,000 ML IV SCH (15:45)
[2017-05-16] MEDS: HYDROmorphone HCL 0.5MG/ML 50 ML CASSETTE IV PRN ×2 (15:49→16:36)
[2017-05-16] MEDS: CHECK SCOPOLAMINE PATCH PLACEMENT SCH (16:00)
[2017-05-16] MEDS ORDERED: CHECK FENTANYL PATCH PLACEMENT SCH (16:00)
[2017-05-16] MEDS ORDERED: BOOST BREEZE NUTRITION DRINK 1 BOX PO SCH (17:00)
[2017-05-16] MEDS: LORAZEPAM 1 MG TAB PO SCH (20:37)
[2017-05-17] VITALS: O2SAT 94
[2017-05-17] MEDS: CHECK SCOPOLAMINE PATCH PLACEMENT SCH ×4 (00:27→23:55)
[2017-05-17] MEDS: PIPERACILL/TAZOBAC IV 4.5 GM in DEXTROSE 5% 100ML IV SCH ×3 (03:28→19:50)
[2017-05-17] MEDS: ONDANSETRON 4 MG TAB PO SCH ×5 (06:00→19:37)
[2017-05-17] MEDS: DEXAMETHASONE INJ 4 MG in SYRINGE 0 ML IV SCH ×2 (06:26→17:41)
[2017-05-17] MEDS: BuPROPion SR 100 MG TABCR PO SCH ×2 (08:00→19:37)
[2017-05-17] MEDS: LIDOCAINE HCL 2% VISCOUS SOLN 60 ML, DiphenhydrAMINE HCL SYRUP 150 MG, ALUMINUM/MAGNESI... MT SCH ×12 (08:00→16:00)
[2017-05-17] MEDS: SERTRALINE HCL 100 MG TAB PO SCH (08:00)
[2017-05-17 08:08] VITALS: BP 129/61; PULSE 77; TEMP 36.7; O2SAT 95
[2017-05-17 08:30] VITALS: O2SAT 95
[2017-05-17] MEDS: INSULIN ASPART 100 UNITS/ML 3 ML PEN SC SCH ×4 (08:47→20:12)
[2017-05-17] MEDS: PANTOprazole INJ 40 MG in SYRINGE 0 ML IV SCH (08:47)
[2017-05-17 15:03] VITALS: BP 149/74; PULSE 79; TEMP 36.5; O2SAT 93
[2017-05-17] MEDS: POTASSIUM CHLORIDE IV SCH (16:00)
[2017-05-17] MEDS: SODIUM CHLORIDE 0.45% IV SCH (16:00)
[2017-05-17] MEDS: SODIUM CHLORIDE 0.9% 1000ML 1,000 ML IV SCH (16:10)
[2017-05-17] MEDS ORDERED: FENTANYL PATCH REMOVE & WASTE SCH (17:59)
[2017-05-17 19:34] VITALS: BP 155/74; PULSE 78; TEMP 36.7; O2SAT 93
[2017-05-17] MEDS: LORAZEPAM 1 MG TAB PO SCH (19:37)
[2017-05-17 20:00] VITALS: O2SAT 93
--- NOTE | 2017-05-17 20:04 | Progress Note ---
Medicine Progress Note Date & Time of Visit: May 17, 2017 at 20:04. Subjective seen with family at bedside states he feels improved today overall pain well controlled with UNDERGROUND MINE MACHINERY MECHANIC pump less nausea today, able to have half of cream of wheat for breakfast, half cup of rice for dinner able to walk in the halls with PT denies other symptoms Objective Last 8 Hrs Date Time Temp Pulse Resp B/P (MAP) Pulse Ox O2 Delivery O2 Flow Rate FiO2 05/17/17 19:34 36.7 78 20 155/74 (101) 93 Room Air 05/17/17 15:03 36.5 79 20 149/74 (99) 93 Room Air Physical Exam: General- oriented x 3, not in distress, weak Eyes- anicteric ENT- dried blood seen on the oropharynx, no nasal secretions noted Neck- no JVD Lungs- clear BS BL, no rales Heart- regular rhythm; no murmur, normal rate Abdomen- normal bowel sounds, soft, nontender Extremities- no pretibial edema, no calf tenderness Neuro- alert, oriented x 3; no gross focal deficits Skin- warm & dry Laboratory Results: Last 24 Hours Test 05/16/17 20:29 05/17/17 08:14 05/17/17 11:29 05/17/17 16:36 Bedside Glucose 172 mg/dl 140 mg/dl 164 mg/dl 125 mg/dl Test 05/17/17 19:56 Assessment & Plan 66 year old male with history of Left Renal Cell CA with Brain Metastases, DM, HTN presenting with weakness. 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 Andrews ENT, mass has increased in size compared to last imaging a few months back discussed with family and patient at length, they preferred to continue with care here in [facility] and update their Oncologist in [place] -- remained afebrile, no leukocytosis with IV Zosyn blood cultures: negative nasal secretion culture: light normal mary completed IV Zosyn Day 02/12 Speech Tx: recommend pureed diet - called Dr. Montelongo- patient's oncologist in [facility] and discussed the case with him he will discuss options with their Radiation Oncologist re: palliative radiation if patient improves he recommended to increase Dexamethasone for now though -- (+) increasing headache and nausea noted over the weekend likely from enlarging tumor Dilaudid IV PRN increased, added Fentanyl patch, Zofran SL q6h--> pain worsening--> 05/16/17 started Dilaudid UNDERGROUND MINE MACHINERY MECHANIC pump, Fentanyl patch increased, PRN antiemetics Dexamethasone taper 0.5mg every other day increased to 4mg IV q12h added Scopolamine patch to decrease secretions [facility] -- appears to have some improvement with oral intake and overall energy since admission plan to d/c home with home hospice on discharge, in about 1-2 days -- palliative care svc evaluated the patient and had a discussion with family patient and family has expressed wish to go home with hospice on discharge -- needs to convert hospice meds to SL on discharge: Roxanol solution SL Dexamethasone solution SL (to decrease edema of the mass, for comfort) Zofran, Ativan SL Fentanyl patch patient requesting possible IV fluids for hydration at home, Palliative Care SVC checking with hospice services DEHYDRATION FROM POOR ORAL INTAKE - crea stable - continue IV fluids POOR ORAL INTAKE, LIKELY FROM NASOPHARYNGEAL MASS, POSSIBLE DYSPHAGIA FROM RADIATION - Speech therapy and GI consulted - Speech Eval performed: moist pureed diet ordered - no further interventions for now per GI ELEVATED INR, COAGULOPATHY - INR was 7.3 on admission - from Vitamin K deficiency? - plt, d dimer, fibrin ok - given Vitamin K po Hematology consulted - Vit K 10mg po daily x 3 days ordered - INR 1 since then repeat INR tomorrow ANEMIA - Hg 7.6 1 unit PRBC ordered improved to 9.0 URINARY RETENTION - from immobility, narcotics - resolved HYPONATREMIA - likely from hypovolemia - IV 1/2 NSS Na stable HYPOMAGNESEMIA and HYPOKALEMIA - IV Mg and K ordered RENAL CELL CA WITH BRAIN METS - follows with [facility] ctr management per #1 DM 2 - ISS for now HTN - hold Lisinopril, ASA DVT prophylaxis SCDs ambulation as per PT/OT FULL CODE Disposition -- palliative care svc evaluated the patient and discussed with family patient and family has expressed wish to go home with hospice on discharge, changed code status to DNR possible d/c in 1-2 days discussed care at length with patient and his at length, all questions answered they are comfortable and agreeable with plan of care Current Inpatient Medications: Current Inpatient Medications Medications (Trade) Dose Ordered Sig/Cristhian Route Start Time Stop Time Status Last Admin Dose Admin Acetaminophen (Tylenol Tab) 650 mg Q4H PRN PO 05/11/17 11:00 06/10/17 10:59 Glucose (Glucose 40% Gel) 15-30 GRAMS 15 GRAMS... UD PRN PO 05/11/17 12:45 06/10/17 12:44 Glucose (Glucose Chew Tab) 4-8 Tablets 4 Tabl... UD PRN PO 05/11/17 12:45 06/10/17 12:44 Dextrose (Dextrose 50% 50ML Syringe) 25-50ML OF 50% DW IV FOR... UD PRN IV 05/11/17 12:45 06/10/17 12:44 Glucagon (Glucagon Inj) 1 mg UD PRN SQ 05/11/17 12:45 06/10/17 12:44 Bupropion HCl (Wellbutrin-Sr Tab) 100 mg BID PO 05/11/17 21:00 06/10/17 20:59 05/14/17 08:55 100 MG Lorazepam (Ativan Tab) 1 mg HS PO 05/11/17 21:00 06/10/17 20:59 05/13/17 21:33 1 MG Sertraline HCl (Zoloft Tab) 300 mg DAILY PO 05/12/17 09:00 06/11/17 08:59 05/14/17 08:55 300 MG Piperacillin Sod/ Tazobactam Sod 4.5 gm/Dextrose 120 ml @ 30 mls/hr Q8H IV 05/11/17 20:00 05/21/17 11:59 05/17/17 19:50 30 MLS/HR Piperacillin Sod/ Tazobactam Sod (Consult) 1 ea UD PRN N/A 05/11/17 13:30 06/10/17 13:29 Lidocaine HCl/ Diphenhydramine HCl/Al Hydroxide/ Mg Hydroxide/ Glycerin/Barcode [id number] MT 05/11/17 16:00 06/10/17 15:59 05/11/17 16:16 5 ML Oxycodone/ Acetaminophen (Percocet 5-325mg Tab) 1 tab Q4H PRN PO 05/12/17 10:15 05/26/17 10:14 Future Hold 05/14/17 15:59 1 TAB Insulin Aspart (novoLOG ASPART) SLIDING SCALE If C... ACHS SC 05/12/17 21:00 06/11/17 05:59 05/13/17 17:26 1 UNITS Ondansetron HCl (Zofran Inj) 4 mg Q6H PRN IV 05/13/17 08:15 06/12/17 08:14 05/16/17 15:08 4 MG Polyethylene (Miralax Powder Packet) 17 gm DAILY PRN PO 05/14/17 14:15 06/13/17 14:14 05/14/17 14:39 17 GM Magnesium Hydroxide (Milk Of Magnesia Susp) 30 ml Q6H PRN PO 05/14/17 14:15 06/13/17 14:14 Bisacodyl (Dulcolax Supp) 10 mg DAILY PRN NE 05/14/17 14:15 06/13/17 14:14 Promethazine HCl 12.5 mg/Sodium Chloride 50.5 ml @ 204 mls/hr Q6H PRN IV 05/14/17 16:15 06/13/17 16:14 05/14/17 16:35 204 MLS/HR Dexamethasone Sodium Phosphate 4 mg/Syringe 1 ml @ 1 mls/min Q12H IV 05/14/17 18:00 06/13/17 17:59 05/17/17 17:41 1 MLS/MIN Morphine Sulfate (Roxanol Oral Soln) 5 mg Q3H PRN PO 05/14/17 17:15 05/28/17 17:14 Future Hold Ondansetron HCl (Zofran Tab) 4 mg Q6HWA PO 05/14/17 18:00 06/13/17 17:59 Pantoprazole Sodium 40 mg/ Syringe 10 ml @ 5 mls/min DAILY IV 05/16/17 09:00 06/10/17 20:59 05/17/17 08:47 5 MLS/MIN Potassium Chloride 20 meq/ Sodium Chloride 1,010 ml @ 60 mls/hr [id number] IV 05/15/17 13:30 06/11/17 13:29 Senna/Docusate Sodium (Senokot S Tab) 1 tab QAM PRN PO 05/16/17 09:00 06/12/17 08:59 Fentanyl (Duragesic Patch) 25 mcg Q72H TD 05/16/17 12:30 05/30/17 12:29 Future Hold 05/16/17 12:38 25 MCG Hydromorphone HCl (Dilaudid Inj) 2 mg Q2H PRN IV 05/16/17 11:00 05/25/17 13:59 Future Hold Miscellaneous (Fentanyl Patch Remove & Waste) 1 ea Q3D N/A 05/19/17 12:29 06/18/17 12:28 Future Hold Miscellaneous Information (Check Fentanyl Patch Placement) 1 ea QS N/A 05/16/17 16:00 06/15/17 15:59 Future Hold Naloxone HCl (Narcan Inj) 0.1 mg Q5M PRN IV 05/16/17 13:45 06/15/17 13:44 Hydromorphone HCl (Dilaudid Gunite Nozzle Operator) 25 mg PRN PRN IV 05/16/17 13:45 05/30/17 13:44 05/16/17 16:36 25 MG Sodium Chloride 1,000 ml @ 15 mls/hr Q24H IV 05/16/17 15:00 06/15/17 14:59 05/17/17 16:10 15 MLS/HR Scopolamine (Transderm-Scop Patch) 1.5 mg Q72H TD 05/16/17 15:00 06/15/17 14:59 05/16/17 15:42 1.5 MG Miscellaneous (Remove Transderm-Scop Patch) 1 ea Q72H N/A 05/19/17 14:59 06/18/17 14:58 Miscellaneous Information (Check Scopolamine Patch Placement) 1 ea QS N/A 05/16/17 16:00 06/15/17 15:59 05/17/17 16:11 1 EA
[2017-05-17] MEDS: LORAZEPAM 1 MG TAB SL SCH (21:43)
[2017-05-18] VITALS (7 sets, daily range): BP systolic 133–157; BP diastolic 67–80; PULSE 71–80; TEMP 36.6–37; O2SAT 93–97
[2017-05-18] MEDS ORDERED: FENTANYL 25 MCG/HR TDSY TD SCH (00:30)
[2017-05-18] MEDS: DEXAMETHASONE INJ 4 MG in SYRINGE 0 ML IV SCH (05:43)
[2017-05-18] MEDS: LIDOCAINE HCL 2% VISCOUS SOLN 60 ML, DiphenhydrAMINE HCL SYRUP 150 MG, ALUMINUM/MAGNESI... MT SCH ×12 (08:00→16:41)
[2017-05-18] MEDS: CHECK SCOPOLAMINE PATCH PLACEMENT SCH ×2 (08:08→16:42)
[2017-05-18] MEDS: PANTOprazole INJ 40 MG in SYRINGE 0 ML IV SCH (08:08)
[2017-05-18] MEDS: CHECK FENTANYL PATCH PLACEMENT SCH ×2 (08:09→16:41)
[2017-05-18] MEDS: INSULIN ASPART 100 UNITS/ML 3 ML PEN SC SCH ×4 (08:11→21:00)
[2017-05-18] MEDS: POTASSIUM CHLORIDE IV SCH (08:17)
[2017-05-18] MEDS: SODIUM CHLORIDE 0.45% IV SCH (08:17)
--- NOTE | 2017-05-18 10:53 | Clinical Documentation Query ---
CLINICAL DOCUMENTATION QUERY 66 year old male with history of 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 He lost about 40 to 50 lb since February,, In your clinical opinion is this patient being managed for: ( ) Severe protein-calorie malnutrition ( ) Not Agree ( ) Other explanation of clinical findings (Please Explain) ( ) Unable to determine (Please Define) ( ) Need to Discuss The medical record reflects the following clinical findings, treatment, and risk factors. Clinical Indicators: Persistent weakness x 1 wk, 40 - 50 lb wt loss in 3 months, BMI 20, dehydration, dysphasia, vomiting/nausea, difficulty eating solid food, decreased appetite x 2 1/2 wks, dry mucus membranes Treatment: Dietary consult, boost nutrition shakes Risk Factors: Malignant neoplasms to bilat lungs, nasopharynx, brain Please clarify and document your clinical opinion in the progress notes and discharge summary. Terms such as "probable", "suspected", "likely", "questionable", "possible", or "still to be ruled out" are acceptable. IF IN AGREEMENT, YOU MUST DOCUMENT ABOVE DIAGNOSTIC STATEMENT IN DAILY PROGRESS NOTES AND DISCHARGE SUMMARY. This document is not part of the patient's record. Thank You, Maria G Foley RN [phone]
[2017-05-18] MEDS: SODIUM CHLORIDE 0.9% 1000ML 1,000 ML IV SCH (12:50)
--- NOTE | 2017-05-18 15:32 | Palliative Care Progress Note ---
Palliative Care Progress Note Date of Service May 18, 2017. Subjective Pt evaluation today including: conversation w/ patient, conversation w/ family (, Eloina Eden), physical exam, conversation w/ organizational research consultant Pain: 0/10 at this time PO Intake: minimal Voiding: no voiding problems -Patient is awake alert and oriented with periods of forgetfulness/confusion per , family and nursing staff. -Was up to wheelchair and participated in physical therapy today. -Steroid dosing was increased, has helped with appetite and energy level somewhat. -Goal is home with hospice. -Remains on Dilaudid GROMMET MACHINE OPERATOR pump, received total of 6mg IV in 24 hours. States pain is controlled at this time. Review of Systems Constitutional: + weakness Eyes: + diplopia Respiratory: No cough, No shortness of breath Cardiac: No chest pain, No edema Abdomen: + vomiting, No pain, No nausea Male : No problem reported Psychiatric: + anxiety, No depression symptoms Objective Vital Signs Date Time Temp Pulse Resp B/P (MAP) Pulse Ox O2 Delivery O2 Flow Rate FiO2 05/18/17 11:34 36.7 80 18 150/71 (97) 95 Room Air 05/18/17 08:10 37.0 71 18 157/70 (99) 93 Room Air 05/18/17 08:00 Room Air 05/18/17 04:56 36.7 76 20 150/68 (95) 93 Room Air 05/18/17 00:21 36.6 77 20 133/67 (89) 93 Room Air 05/18/17 00:00 93 Room Air 0.0 05/17/17 20:00 93 Room Air 0.0 05/17/17 19:34 36.7 78 20 155/74 (101) 93 Room Air Physical Exam General Appearance: no apparent distress ENT: + pertinent finding (hard of hearing) Neck: supple, no JVD Respiratory/Chest: no respiratory distress, no accessory muscle use Cardiovascular: regular rate, rhythm, no edema Abdomen: non tender, soft Neurologic/Psychiatric: alert, normal mood/affect, oriented x 3 Skin: normal color Laboratory Results Last 24 Hours Test 05/17/17 16:36 05/17/17 19:56 05/18/17 07:45 05/18/17 12:10 Bedside Glucose 125 mg/dl 154 mg/dl 120 mg/dl 146 mg/dl Assessment and Plan Problem list: Pain, head Vomiting/"spitting up" Nasal drainage Dysphagia- pureed moist diet 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 -Goal is for home with hospice. Equipment will be delivered to patient's home tomorrow. Should be able to be discharged if med regimen is in place. -GROMMET MACHINE OPERATOR pump should be discontinued prior to discharge. Would transition now to SL Roxanol 10mg PO Q2h PRN pain or SOB. -Continue fentanyl patch 25mcg/hr. Could certainly increase fentanyl patch to 37mcg/hr tomorrow if pain persists. -Continue SL lorazepam and zofran at home. -Patient is no longer taking his PO medications. However, if he is able and agreeable, would consider continuing steroids at home. Thank you again for this consult. I am available if needed. Palliative Performance Scale: 40 % Discharge planning: home with Hospice
[2017-05-18] MEDS ORDERED: MoRPHine SULFATE 5 MG/0.25 ML UDP PO PRN ×2 (15:45→19:00)
[2017-05-18] MEDS ORDERED: HYDROmorphone INJ 0.5 MG/0.5 ML SYR IV PRN (16:45)
[2017-05-18] MEDS: ONDANSETRON INJ 2 MG/ML 2 ML VIAL IV PRN (18:06)
--- NOTE | 2017-05-18 18:18 | Progress Note ---
Medicine Progress Note Date & Time of Visit: May 18, 2017 at 18:18. Subjective Patient reports his pain has been controlled well with the dilaudid SHUTTLE FILLER, hospice agency is going to deliver equipment tomorrow , and patient is aware he will not have IV medications at home thus agreeable to try oral liquid medications. No overnight events noted. Denies any constipation. Appetite is low , did eat cream of wheat this AM without difficulty. No other complaints noted. Objective Last 8 Hrs Date Time Temp Pulse Resp B/P (MAP) Pulse Ox O2 Delivery O2 Flow Rate FiO2 05/18/17 15:44 36.7 79 18 145/80 (101) 97 Room Air 05/18/17 11:34 36.7 80 18 150/71 (97) 95 Room Air Physical Exam: General: adult, appears older than stated age Head: atraumatic, normocephalic Eyes: Left eye PERRL, EOMI, anicteric; right eye with patch Neck: supple, no JVD Lungs: clear to auscultation bilaterally; no chest wall pain/tenderness to palpation noted Heart: RR; no murmur, no gallop, no rub appreciated, S1 and S2 auscultated Abdomen: soft, nontender, normal bowel sounds, no palpable masses, no notable hepatosplenomegaly Extremities: no edema, no calf tenderness Neuro: alert, oriented x 3; no dysarthria; no acute focal deficits noted Skin: warm, dry, no rashes Laboratory Results: Last 24 Hours Test 05/17/17 19:56 05/18/17 07:45 05/18/17 12:10 05/18/17 17:02 Bedside Glucose 154 mg/dl 120 mg/dl 146 mg/dl 101 mg/dl Assessment & Plan 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 Andrews ENT consulted, mass has increased in size compared to last imaging a few months back: previous attending discussed with family and patient at length, they preferred to continue with care here in [facility] and update their Oncologist in [place] via phone -previous attending called Dr. Montelongo (patient's oncologist in [facility]) and discussed the case with him; he will discuss options with their Radiation Oncologist re: palliative radiation if patient improves enough to tolerate, but recommended to increase Dexamethasone for now -the past weekend patient had increasing headache and nausea; possibly from enlarging tumor; was ultimately started on a dilaudid SHUTTLE FILLER and increased dose of fentanyl patch as well as anti-emetics; Dexamethasone taper was stopped and dose increased to 4mg IV q12h -started on Scopolamine patch to decrease secretions/drainage from sinuses -Palliative care consulted, appreciate recs; evaluated the patient and had a discussion with family and patient; he expressed wanting to go home with hospice on discharge -will convert hospice meds to oral: patient requesting possible IV fluids for hydration at home, Palliative Care SVC checking with hospice services to see if this is possible SINUSITIS: -afebrile, no leukocytosis -blood cultures: negative -nasal secretion culture: light normal mary -completed course of IV Zosyn Day 7 days HYPOVOLEMIA FROM POOR ORAL INTAKE: -cr stable -continue IV fluids POOR ORAL INTAKE: -secondary to nasopharyngeal mass and possible dysphagia from radiation -Speech therapy and GI consulted -Speech Eval performed: moist pureed diet ordered -no further interventions for now per GI ELEVATED INR, COAGULOPATHY: -INR was 7.3 on admission -platelets, d dimer, fibrin were ok -patient was given Vitamin K PO -Hematology consulted, appreciate recs -Vit K 10mg PO daily x 3 days ordered -INR 1 since then ANEMIA: -Hb: 7.6 -s/p transfusion with 1 unit PRBC ordered -improved to 9.0 URINARY RETENTION: -likely from immobility, narcotics - resolved HYPONATREMIA: -likely from hypovolemia -was on IV fluids with 1/2 NSS -Na stable HYPOMAGNESEMIA and HYPOKALEMIA: -repleted DM TYPE II: -oral intake is poor -only continue correction scale insulin for now HTN: -hold Lisinopril, ASA Dispo: Awaiting arrangement of hospice care services at his home. Discharge planning: home with Hospice Current Inpatient Medications: Current Inpatient Medications Medications (Trade) Dose Ordered Sig/Cristhian Route Start Time Stop Time Status Last Admin Dose Admin Glucose (Glucose 40% Gel) 15-30 GRAMS 15 GRAMS... UD PRN PO 05/11/17 12:45 06/10/17 12:44 Glucose (Glucose Chew Tab) 4-8 Tablets 4 Tabl... UD PRN PO 05/11/17 12:45 06/10/17 12:44 Dextrose (Dextrose 50% 50ML Syringe) 25-50ML OF 50% DW IV FOR... UD PRN IV 05/11/17 12:45 06/10/17 12:44 Glucagon (Glucagon Inj) 1 mg UD PRN SQ 05/11/17 12:45 06/10/17 12:44 Lidocaine HCl/ Diphenhydramine HCl/Al Hydroxide/ Mg Hydroxide/ Glycerin/Barcode [id number] MT 05/11/17 16:00 06/10/17 15:59 05/11/17 16:16 5 ML Oxycodone/ Acetaminophen (Percocet 5-325mg Tab) 1 tab Q4H PRN PO 05/12/17 10:15 05/26/17 10:14 Future Hold 05/14/17 15:59 1 TAB Insulin Aspart (novoLOG ASPART) SLIDING SCALE If C... ACHS SC 05/12/17 21:00 06/11/17 05:59 05/13/17 17:26 1 UNITS Ondansetron HCl (Zofran Inj) 4 mg Q6H PRN IV 05/13/17 08:15 06/12/17 08:14 05/18/17 18:06 4 MG Polyethylene (Miralax Powder Packet) 17 gm DAILY PRN PO 05/14/17 14:15 06/13/17 14:14 05/14/17 14:39 17 GM Magnesium Hydroxide (Milk Of Magnesia Susp) 30 ml Q6H PRN PO 05/14/17 14:15 06/13/17 14:14 Bisacodyl (Dulcolax Supp) 10 mg DAILY PRN AL 05/14/17 14:15 06/13/17 14:14 Promethazine HCl 12.5 mg/Sodium Chloride 50.5 ml @ 204 mls/hr Q6H PRN IV 05/14/17 16:15 06/13/17 16:14 05/14/17 16:35 204 MLS/HR Pantoprazole Sodium 40 mg/ Syringe 10 ml @ 5 mls/min DAILY IV 05/16/17 09:00 06/10/17 20:59 05/18/17 08:08 5 MLS/MIN Potassium Chloride 20 meq/ Sodium Chloride 1,010 ml @ 60 mls/hr [id number] IV 05/15/17 13:30 06/11/17 13:29 05/18/17 08:17 60 MLS/HR Hydromorphone HCl (Dilaudid Inj) 2 mg Q2H PRN IV 05/16/17 11:00 05/25/17 13:59 Future Hold Scopolamine (Transderm-Scop Patch) 1.5 mg Q72H TD 05/16/17 15:00 06/15/17 14:59 05/16/17 15:42 1.5 MG Miscellaneous (Remove Transderm-Scop Patch) 1 ea Q72H N/A 05/19/17 14:59 06/18/17 14:58 Miscellaneous Information (Check Scopolamine Patch Placement) 1 ea QS N/A 05/16/17 16:00 06/15/17 15:59 05/18/17 16:42 1 EA Lorazepam (Ativan Tab) 1 mg HS SL 05/17/17 21:00 06/10/17 20:59 05/17/17 21:43 1 MG Fentanyl (Duragesic Patch) 25 mcg Q72H TD 05/18/17 00:30 06/01/17 00:29 05/18/17 01:29 25 MCG Miscellaneous (Fentanyl Patch Remove & Waste) 1 ea Q3D@0029 N/A 05/21/17 00:29 06/20/17 00:28 Miscellaneous Information (Check Fentanyl Patch Placement) 1 ea QS N/A 05/18/17 08:00 06/17/17 07:59 05/18/17 16:41 1 EA Dexamethasone (Decadron Conc Soln) 4 mg Q12 PO 05/18/17 21:00 06/17/17 20:59 Morphine Sulfate (Roxanol Oral Soln) 10 mg Q2HWA PRN PO 05/18/17 15:45 06/01/17 15:44 05/18/17 16:41 10 MG Hydromorphone HCl (Dilaudid Inj) 0.5 mg Q4 PRN IV 05/18/17 16:45 06/01/17 16:44 05/18/17 18:07 0.5 MG
[2017-05-18] MEDS ORDERED: MoRPHine SULFATE 5 MG/0.25 ML UDP ONE (19:54)
[2017-05-18] MEDS: LORAZEPAM 1 MG TAB SL SCH (21:23)
[2017-05-18] MEDS: HYDROmorphone INJ 0.5 MG/0.5 ML SYR IV PRN (21:24)
[2017-05-18] MEDS: DEXAMETHASONE CONC 1 MG/ML 30 ML PO SCH (21:27)
[2017-05-19] VITALS (7 sets, daily range): BP systolic 128–161; BP diastolic 64–79; PULSE 85–94; TEMP 36.6–37; O2SAT 92–94
[2017-05-19] MEDS: HYDROmorphone INJ 0.5 MG/0.5 ML SYR IV PRN ×3 (00:05→08:01)
[2017-05-19] MEDS: INSULIN ASPART 100 UNITS/ML 3 ML PEN SC SCH ×4 (06:30→19:51)
[2017-05-19] MEDS: LIDOCAINE HCL 2% VISCOUS SOLN 60 ML, DiphenhydrAMINE HCL SYRUP 150 MG, ALUMINUM/MAGNESI... MT SCH ×12 (07:44→14:05)
[2017-05-19] MEDS: CHECK SCOPOLAMINE PATCH PLACEMENT SCH ×4 (07:45→23:07)
[2017-05-19] MEDS: CHECK FENTANYL PATCH PLACEMENT SCH ×4 (07:45→23:07)
[2017-05-19] MEDS: PANTOprazole INJ 40 MG in SYRINGE 0 ML IV SCH (08:00)
[2017-05-19] MEDS: DEXAMETHASONE CONC 1 MG/ML 30 ML PO SCH ×2 (08:00→19:52)
[2017-05-19] MEDS ORDERED: FENTANYL PATCH REMOVE & WASTE SCH (12:29)
--- NOTE | 2017-05-19 14:16 | Discharge Summary ---
Discharge Summary Date of Service May 20, 2017. Discharge Summary Admission Date: May 11, 2017 at 10:57 Admission Information HPI (per Admitting provider): 66 year old male with history of 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 Patient follows with Dr. Draper for PCP and [facility] for Oncology. Patient was diagnosed with Renal Cell CA around February and underwent 10 radiation therapy sessions for the brain mets last month. His oncologist was planning to start him with oral chemotherapy this month. He was admitted to [facility] a few weeks ago for dehydration secondary to nausea and vomiting. Upon coming home, patient continue to have poor oral intake, consisting of small amounts of oatmeal and fluids. Family reports persistent nausea and occasional vomiting. also noted increase green secretions per nares and patient was complaining of increasing headache. There was occasional tinge of blood with the nasal secretions. He was brought to the ER for weakness. Physical Exam (per Admitting): General Appearance: + pertinent finding (appears weak but alert, oriented x 3, not in distress) Head: normocephalic, atraumatic Eyes: normal inspection, PERRL, EOMI, sclerae normal ENT: + nasal drainage, + pharyngeal erythema ((+) dried blood in the nasopharynx), + pertinent finding ((+) yellow discharge) Neck: supple, no adenopathy, thyroid normal, no JVD, trachea midline Respiratory/Chest: chest non-tender, lungs clear, normal breath sounds, no respiratory distress, no accessory muscle use Cardiovascular: no edema, no JVD, no murmur, + tachycardia Abdomen/GI: normal bowel sounds, non tender, soft Back: normal inspection, no CVA tenderness Extremities/Musculoskelatal: normal inspection, no calf tenderness, no pedal edema Neurologic/Psych: yield analyst II-XII nml as tested, no motor/sensory deficits, alert , normal mood/affect, oriented x 3 Skin: normal color, warm/dry, no rash Lymphatic: no adenopathy Hospital Course 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 Andrews ENT consulted, mass has increased in size compared to last imaging a few months back: previous attending discussed with family and patient at length, they preferred to continue with care here in [facility] and update their Oncologist in [place] via phone -previous attending called Dr. Montelongo (patient's oncologist in [facility]) and discussed the case with him; he will discuss options with their Radiation Oncologist re: palliative radiation if patient improves enough to tolerate, but recommended to increase Dexamethasone for now -the past weekend patient had increasing headache and nausea; possibly from enlarging tumor; was ultimately started on a dilaudid [employer]ENT and increased dose of fentanyl patch as well as anti-emetics; Dexamethasone taper was stopped and dose increased to 4mg IV q12h -started on Scopolamine patch to decrease secretions/drainage from sinuses -Palliative care consulted, appreciate recs; evaluated the patient and had a discussion with family and patient; he expressed wanting to go home with hospice on discharge -converted hospice meds to oral: patient requesting possible IV fluids for hydration at home, Palliative Care SVC checking with hospice services to see if this is possible -medical equipment to be delivered to the patients home tomorrow, patient can be discharged home after that -provided scripts for hospice meds to the patients who will get them filled at the pharmacy SINUSITIS: -afebrile, no leukocytosis -blood cultures: negative -nasal secretion culture: light normal mary -completed course of IV Zosyn Day 7 days -still has ongoing drainage from his nose and into his oropharynx HYPOVOLEMIA FROM POOR ORAL INTAKE: -cr stable -continue IV fluids POOR ORAL INTAKE: -secondary to nasopharyngeal mass and possible dysphagia from radiation -Speech therapy and GI consulted -Speech Eval performed: moist pureed diet ordered -no further interventions for now per GI ELEVATED INR, COAGULOPATHY: -INR was 7.3 on admission -platelets, d dimer, fibrin were ok -patient was given Vitamin K PO -Hematology consulted, appreciate recs -Vit K 10mg PO daily x 3 days ordered -INR 1 since then ANEMIA: -Hb: 7.6 -s/p transfusion with 1 unit PRBC ordered -improved to 9.0 URINARY RETENTION: -likely from immobility, narcotics -resolved HYPONATREMIA: -likely from hypovolemia -was on IV fluids with 1/2 NSS -Na stable HYPOMAGNESEMIA and HYPOKALEMIA: -repleted DM TYPE II: -oral intake is poor -only continue correction scale insulin for now HTN: -hold Lisinopril, ASA Total time spent on discharge = This includes examination of the patient, discharge planning, medication reconciliation, and communication with other providers.
[2017-05-19] MEDS: SCOPOLAMINE 1.5 MG TDSY TD SCH (15:28)
[2017-05-19] MEDS ORDERED: RXNS5 PO (15:30)
[2017-05-19] MEDS ORDERED: [UNRECOGNIZED DRUG - CODE] PO (15:30)
[2017-05-19] MEDS ORDERED: ATV1 SL (15:30)
[2017-05-19] MEDS ORDERED: ATRO1SOL13 SL (15:30)
[2017-05-19] MEDS ORDERED: DRGTP25 TD (15:30)
[2017-05-19] MEDS ORDERED: HYDR1LIQ8 PO (15:30)
[2017-05-19] MEDS ORDERED: SCOP1DIS14 TD (15:30)
--- NOTE | 2017-05-19 19:01 | Progress Note ---
Medicine Progress Note Date & Time of Visit: May 19, 2017 at 19:00. Subjective Patient states he feels ok, he did well with therapy today, feels a bit tired and sleepy now. Appetite is there but the mucus and drainage makes it difficult for him to eat. No overnight events noted. No other complaints. The roxanol is not as effective at controlling pain and dose will be adjusted per discussion with the patient and his . Objective Last 8 Hrs Date Time Temp Pulse Resp B/P (MAP) Pulse Ox O2 Delivery O2 Flow Rate FiO2 05/19/17 16:08 36.9 85 18 136/76 (96) 94 2.0 05/19/17 16:00 Room Air 05/19/17 13:46 36.7 94 18 92 Room Air 05/19/17 11:56 36.7 94 18 161/79 (106) 92 Room Air Physical Exam: General: adult, appears older than stated age Head: atraumatic, normocephalic Eyes: Left eye PERRL, EOMI, anicteric; right eye with patch Neck: supple, no JVD Lungs: clear to auscultation bilaterally; no chest wall pain/tenderness to palpation noted Heart: RR; no murmur, no gallop, no rub appreciated, S1 and S2 auscultated Abdomen: soft, nontender, normal bowel sounds, no palpable masses, no notable hepatosplenomegaly Extremities: no edema, no calf tenderness Neuro: alert, oriented x 3; no dysarthria; no acute focal deficits noted Skin: warm, dry, no rashes Laboratory Results: Last 24 Hours Test 05/18/17 19:52 05/19/17 07:46 05/19/17 11:25 05/19/17 16:41 Bedside Glucose 112 mg/dl 91 mg/dl 131 mg/dl 126 mg/dl Assessment & Plan 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 Andrews ENT consulted, mass has increased in size compared to last imaging a few months back: previous attending discussed with family and patient at length, they preferred to continue with care here in [facility] and update their Oncologist in [place] via phone -previous attending called Dr. Montelongo (patient's oncologist in [facility]) and discussed the case with him; he will discuss options with their Radiation Oncologist re: palliative radiation if patient improves enough to tolerate, but recommended to increase Dexamethasone for now -the past weekend patient had increasing headache and nausea; possibly from enlarging tumor; was ultimately started on a dilaudid BOTTLE SELECTOR and increased dose of fentanyl patch as well as anti-emetics; Dexamethasone taper was stopped and dose increased to 4mg IV q12h -started on Scopolamine patch to decrease secretions/drainage from sinuses -Palliative care consulted, appreciate recs; evaluated the patient and had a discussion with family and patient; he expressed wanting to go home with hospice on discharge -converted hospice meds to oral: patient requesting possible IV fluids for hydration at home, Palliative Care SVC checking with hospice services to see if this is possible -medical equipment to be delivered to the patients home tomorrow, patient can be discharged home after that -provided scripts for hospice meds to the patients who will get them filled at the pharmacy SINUSITIS: -afebrile, no leukocytosis -blood cultures: negative -nasal secretion culture: light normal mary -completed course of IV Zosyn Day 7 days -still has ongoing drainage from his nose and into his oropharynx HYPOVOLEMIA FROM POOR ORAL INTAKE: -cr stable -continue IV fluids POOR ORAL INTAKE: -secondary to nasopharyngeal mass and possible dysphagia from radiation -Speech therapy and GI consulted -Speech Eval performed: moist pureed diet ordered -no further interventions for now per GI ELEVATED INR, COAGULOPATHY: -INR was 7.3 on admission -platelets, d dimer, fibrin were ok -patient was given Vitamin K PO -Hematology consulted, appreciate recs -Vit K 10mg PO daily x 3 days ordered -INR 1 since then ANEMIA: -Hb: 7.6 -s/p transfusion with 1 unit PRBC ordered -improved to 9.0 URINARY RETENTION: -likely from immobility, narcotics -resolved HYPONATREMIA: -likely from hypovolemia -was on IV fluids with 1/2 NSS -Na stable HYPOMAGNESEMIA and HYPOKALEMIA: -repleted DM TYPE II: -oral intake is poor -only continue correction scale insulin for now HTN: -hold Lisinopril, ASA Dispo: Awaiting arrangement of hospice care services at his home and delivery of equipment. Discharge planning: home with Hospice Current Inpatient Medications: Current Inpatient Medications Medications (Trade) Dose Ordered Sig/Cristhian Route Start Time Stop Time Status Last Admin Dose Admin Glucose (Glucose 40% Gel) 15-30 GRAMS 15 GRAMS... UD PRN PO 05/11/17 12:45 06/10/17 12:44 Glucose (Glucose Chew Tab) 4-8 Tablets 4 Tabl... UD PRN PO 05/11/17 12:45 06/10/17 12:44 Dextrose (Dextrose 50% 50ML Syringe) 25-50ML OF 50% DW IV FOR... UD PRN IV 05/11/17 12:45 06/10/17 12:44 Glucagon (Glucagon Inj) 1 mg UD PRN SQ 05/11/17 12:45 06/10/17 12:44 Lidocaine HCl/ Diphenhydramine HCl/Al Hydroxide/ Mg Hydroxide/ Glycerin/Barcode 3XDQ4 MT 05/11/17 16:00 06/10/17 15:59 05/11/17 16:16 5 ML Oxycodone/ Acetaminophen (Percocet 5-325mg Tab) 1 tab Q4H PRN PO 05/12/17 10:15 05/26/17 10:14 Future Hold 05/14/17 15:59 1 TAB Insulin Aspart (novoLOG ASPART) SLIDING SCALE If C... ACHS SC 05/12/17 21:00 06/11/17 05:59 05/13/17 17:26 1 UNITS Ondansetron HCl (Zofran Inj) 4 mg Q6H PRN IV 05/13/17 08:15 06/12/17 08:14 05/18/17 18:06 4 MG Polyethylene (Miralax Powder Packet) 17 gm DAILY PRN PO 05/14/17 14:15 06/13/17 14:14 05/14/17 14:39 17 GM Magnesium Hydroxide (Milk Of Magnesia Susp) 30 ml Q6H PRN PO 05/14/17 14:15 06/13/17 14:14 Bisacodyl (Dulcolax Supp) 10 mg DAILY PRN SD 05/14/17 14:15 06/13/17 14:14 Promethazine HCl 12.5 mg/Sodium Chloride 50.5 ml @ 204 mls/hr Q6H PRN IV 05/14/17 16:15 06/13/17 16:14 05/14/17 16:35 204 MLS/HR Pantoprazole Sodium 40 mg/ Syringe 10 ml @ 5 mls/min DAILY IV 05/16/17 09:00 06/10/17 20:59 05/19/17 08:00 5 MLS/MIN Scopolamine (Transderm-Scop Patch) 1.5 mg Q72H TD 05/16/17 15:00 06/15/17 14:59 05/19/17 15:28 1.5 MG Miscellaneous (Remove Transderm-Scop Patch) 1 ea Q72H N/A 05/19/17 14:59 06/18/17 14:58 05/19/17 15:27 1 EA Miscellaneous Information (Check Scopolamine Patch Placement) 1 ea QS N/A 05/16/17 16:00 06/15/17 15:59 05/19/17 15:28 1 EA Lorazepam (Ativan Tab) 1 mg HS SL 05/17/17 21:00 06/10/17 20:59 05/18/17 21:23 1 MG Fentanyl (Duragesic Patch) 25 mcg Q72H TD 05/18/17 00:30 06/01/17 00:29 05/18/17 01:29 25 MCG Miscellaneous (Fentanyl Patch Remove & Waste) 1 ea Q3D@0029 N/A 05/21/17 00:29 06/20/17 00:28 Miscellaneous Information (Check Fentanyl Patch Placement) 1 ea QS N/A 05/18/17 08:00 06/17/17 07:59 05/19/17 14:03 1 EA Dexamethasone (Decadron Conc Soln) 4 mg Q12 PO 05/18/17 21:00 06/17/17 20:59 05/19/17 08:00 4 MG Morphine Sulfate (Roxanol Oral Soln) 20 mg Q2HWA PRN PO 05/19/17 14:00 06/01/17 15:44
[2017-05-19] MEDS: LORAZEPAM 1 MG TAB SL SCH (19:51)
[2017-05-19] MEDS: MoRPHine SULFATE 10 MG/0.5 ML UDP PO PRN ×2 (19:52→23:55)
[2017-05-20 00:42] VITALS: BP 147/83; PULSE 97; TEMP 36.7; O2SAT 94
[2017-05-20 04:13] VITALS: BP 130/76; PULSE 95; TEMP 36.8; O2SAT 92
[2017-05-20] MEDS: MoRPHine SULFATE 10 MG/0.5 ML UDP PO PRN ×2 (06:20→09:44)
[2017-05-20 07:37] VITALS: BP 149/76; PULSE 85; TEMP 36.5; O2SAT 93
[2017-05-20] MEDS ORDERED: ATROPINE SULFATE 1% OP SOLN 5 ML BTL SL PRN (07:45)
[2017-05-20] MEDS: PANTOprazole INJ 40 MG in SYRINGE 0 ML IV SCH (08:21)
[2017-05-20] MEDS: LIDOCAINE HCL 2% VISCOUS SOLN 60 ML, DiphenhydrAMINE HCL SYRUP 150 MG, ALUMINUM/MAGNESI... MT SCH ×12 (08:26→11:12)
[2017-05-20] MEDS: CHECK FENTANYL PATCH PLACEMENT SCH (08:27)
[2017-05-20] MEDS: CHECK SCOPOLAMINE PATCH PLACEMENT SCH (08:28)
[2017-05-20] MEDS: DEXAMETHASONE CONC 1 MG/ML 30 ML PO SCH (08:30)
[2017-05-20] MEDS: INSULIN ASPART 100 UNITS/ML 3 ML PEN SC SCH ×3 (08:39→13:17)
[2017-05-20 11:41] VITALS: O2SAT 92
[2017-05-20] MEDS ORDERED: HYDROmorphone INJ 0.5 MG/0.5 ML SYR IV STA (13:30)
--- NOTE | 2017-05-20 13:51 | Discharge Instructions ---
Discharge Instructions Date of Service May 20, 2017. Admission Reason for Admission: Acute Renal Failure Discharge Discharge Diagnosis / Problem: Hypovolemia, intractable pain, poor nutritional intake, sinusitis Discharge Goals Goal(s): Decrease discomfort Activity Recommendations Activity Limitations: resume your previous activity . Current Hospital Diet Patient's current hospital diet: Diabetes Type 2 Diet Discharge Diet Recommended Diet: Regular Diet Diet Texture: Mechanical Soft (ground) Pending Studies Studies pending at discharge: no Laboratory Results Hemoglobin A1c Test 05/12/17 05:10 Range/Units Estimated Average Glucose 183 mg/dl Hemoglobin A1c 8.0 H 4.5-5.6 % Medical Emergencies . Who to Call and When: Medical Emergencies: If at any time you feel your situation is an emergency, please call 911 immediately. Non-Emergent questions/concerns: Call Primary care physicians office or call the hospital at [phone] Smith . Non-Emergent Contact Non-Emergency issues call your: Primary Care Provider . . Thank you for allowing us to participate in your care! "Provider Documentation" section prepared by Cindy Smith. . VTE Core Measure Inpt VTE Proph given/why not?: SCD's
--- NOTE | 2017-05-20 14:05 | Palliative Care Progress Note ---
Palliative Care Progress Note Date of Service May 20, 2017. Subjective Spoke with Dr. Smith-- patient to be discharged today, home with hospice. filled patient's scripts yesterday, equipment has been delivered by hospice agency. Myself and the director from [address] [place] [address] went and spoke with and patient. Questions answered. Patient will be seen this evening by hospice nurse. to transport patient. No further questions/concerns.
[2017-05-21] MEDS ORDERED: FENTANYL PATCH REMOVE & WASTE SCH (00:29)
== END 2017-05-20 14:50 | disposition hospice, home (50) | DRG 687 ==
LOC: C.EDB 08:33 → C.MED 10:57 → ENRESERV 11:36 → C.4E 05-16 16:53
PROVIDERS: ADMIT Internal Medicine; ATTEND Internal Medicine
DX: C64.2 Malignant neoplasm of left kidney, except renal pelvis (principal); C79.31 Secondary malignant neoplasm of brain; C78.01 Secondary malignant neoplasm of right lung; C78.02 Secondary malignant neoplasm of left lung; Z51.5 Encounter for palliative care; Z66 Do not resuscitate; C79.89 Secondary malignant neoplasm of other specified sites; E87.1 Hypo-osmolality and hyponatremia; I10 Essential (primary) hypertension; E11.9 Type 2 diabetes mellitus without complications; R13.10 Dysphagia, unspecified; R00.0 Tachycardia, unspecified; E86.0 Dehydration; E83.42 Hypomagnesemia; J01.90 Acute sinusitis, unspecified; D64.9 Anemia, unspecified; E86.1 Hypovolemia; Z79.82 Long term (current) use of aspirin; Z79.4 Long term (current) use of insulin; Z87.891 Personal history of nicotine dependence; Z80.9 Family history of malignant neoplasm, unspecified; Z83.3 Family history of diabetes mellitus; Z82.49 Family history of ischemic heart disease and other diseases of the circulatory system